=== PATIENT | female | born 1935 | race Caucasian/White ===

== ENCOUNTER 2019-06-01 13:07 | Outpatient (RCR) | payer MEDICARE, OTHER, SELFPAY | END 2019-06-26 00:01 | LOC: WOUND 13:07 | PROVIDERS: Family Provider Internal Medicine; Visit Provider Surgery | DX: Z09 Encounter for follow-up examination after completed treatment for conditions other than malignant neoplasm (principal) | CPT/HCPCS: G0463 ==

== ENCOUNTER → 2019-07-09 09:50 | Outpatient (BNVA) | payer MEDICARE, OTHER, SELFPAY | PROVIDERS: Family Provider Internal Medicine; PCP Internal Medicine; Visit Provider Internal Medicine | DX: D64.9 Anemia, unspecified (principal) | CPT/HCPCS: 85025 ==

== ENCOUNTER 2019-07-10 06:25 | Outpatient (CLI) | payer MEDICARE, OTHER, SELFPAY ==
[2019-07-10] VITALS (12 sets, daily range): BP systolic 126–155; BP diastolic 51–75; PULSE 56–63; RESP 18; TEMP 36.1–36.7; O2SAT 97; BMI 32.4
== END 2019-07-10 06:26 | disposition home or self-care (01) ==
PROVIDERS: Family Provider Internal Medicine; PCP Internal Medicine; Visit Provider Internal Medicine
DX: D64.9 Anemia, unspecified (principal); K92.1 Melena
CPT/HCPCS: 36415; 36430; 86850; 86900; P9016

== ENCOUNTER 2019-07-22 12:13 | Emergency (ER) | payer MEDICARE, OTHER, SELFPAY ==
[2019-07-22 12:15] VITALS: BMI 31.6
--- NOTE | 2019-07-22 12:15 | ED_ITS ---
Entered by Vladimir Jenkins, acting as scribe for Karoline Bernard HPI - Weakness General: Chief complaint: Weakness Stated complaint: WEAKNESS Time Seen by Provider: 07/22/19 12:14 History of Present Illness: HPI Narrative: 83 yo female presents with laurie lopez. Pt states that this all started last night. Pt states that she can't stand on her own. Pt states that prior to today she was able to ambulate with a walker. MD Complaint: generalized weakness Onset (ago): day(s) (last night) Duration: constant Location: generalized Severity: moderate Exacerbating factors: none Associated symptoms: Denies chest pain, chills, dark stools, diaphoresis, dysuria, easy bruising, fever(s), nausea, syncope or vomiting Review of Systems General: Reports: other (negative unless marked) Const: Denies: fever, chills, body aches, fatigue, malaise or diaphoresis Eyes: Denies: change in vision or blurry vision ENMT: Denies: throat pain, painful swallowing, hoarseness, ear pain, ear discharge, Change in hearing or nasal discharge Card: Denies: chest pain, palpitations, irregular heart rhythm, syncope, pre- syncope, shortness of breath on exertion or shortness of breath when lying down Resp: Denies: shortness of breath, productive cough, non-productive cough, wheezing, coughing up blood or chest congestion GI: Denies: abdominal pain, nausea, vomiting, vomiting blood, coffee grounds in vomit, diarrhea, constipation, cramping, blood in stool or black tarry stool : Denies: flank pain, painful urination, urinary frequency, urinary urgency, decreased urine ouput, urinary incontinence or blood in urine Musc: Denies: neck pain, back pain, extremity pain, extremity swelling, joint pain, joint swelling, joint warmth or joint stiffness Skin/Breast: Denies: rash, skin tenderness or yellow skin Neuro: Reports: weakness in extremities (lower extremities) and difficulty walking; Denies: numbness in extremities Endo: Denies: excessive thirst, tired all the time, cold intolerance, excessive sweating, flushing or hot flashes Braulio/Lymph: Denies: easy bruising, easy bleeding, petechiae or enlarged lymph nodes All/Imm: Denies: hives, throat swelling, tongue swelling, facial swelling or acute wheezing PFSH ED PFSH: Statuses (acute, chronic, etc) shown below reflect problem list status as previously entered and may not be historically accurate Medical History CAD (coronary artery disease) (Acute) Depression (Acute) Diabetes (Acute) Fibromyalgia (Acute) GERD (gastroesophageal reflux disease) (Acute) Hypertension (Acute) Polymyalgia rheumatica (Acute) Thyroid disease (Acute) Surgical History H/O: hysterectomy (Acute) History of appendectomy (Acute) History of back surgery (Acute) History of bilateral knee replacement (Acute) Hx of cataract surgery (Acute) Social History Smoking and tobacco status: never smoked Physical Exam Const: COMMON NORMALS: no apparent distress, oriented x3, no limitations, healthy appearing and well nourished EXAM LIMITATIONS: no altered mental status GENERAL APPEARANCE: cooperative, well kempt and well developed ORIENTATION/CONSCIOUSNESS: Yes awake HENMT: COMMON NORMALS: normocephalic, head/scalp atraumatic, hearing grossly normal bilaterally, external ears normal, EAC's normal, external nose normal and moist oral mucous membranes HEAD & SCALP: normal to inspection, normocephalic and atraumatic FACE & SINUS: normal facial exam and face symmetric NOSE: external nose normal and nares normal EXTERNAL EAR: Yes external ears normal EXTERNAL AUDITORY CANAL: EAC's normal MOUTH: oral and palatal mucosa normal and tongue normal Eye: COMMON NORMALS: PERRL, EOMs intact bilaterally, conjunctivae normal and no scleral icterus GENERAL EYE: normal appearance of both eyes and normal light reflex CONJUNCTIVA: Yes conjunctivae normal SCLERA: sclerae normal CORNEA: Yes corneas normal PUPIL: Yes PERRL DIRECT OPHTHALMOSCOPY: Yes normal light reflex Neck/C-Spine: COMMON NORMALS: full ROM, no lymphadenopathy, supple, no meningeal signs and no JVD GENERAL: Yes normal visual inspection and Yes trachea midline CERVICAL SPINE: Yes cervical ROM normal Chest: COMMONS NORMALS: inspection of chest normal and palpation of chest normal Resp: COMMON NORMALS: normal respiratory effort, no retractions, no use of accessory muscles and clear to auscultation bilaterally EFFORT & INSPECTION: Yes able to speak in complete sentences AUSCULTATION: clear to auscultation bilaterally Cardio: COMMON NORMALS: no JVD, regular rate, regular rhythm, S1 normal heart sound, S2 normal heart sound, no gallops, no clicks, no murmurs and no rub JUGULAR VENOUS DISTENTION: no JVD RATE: regular rate RHYTHM: regular rhythm HEART SOUNDS: S1 normal and S2 normal GI: COMMON NORMALS: soft to palpation, non-tender, no hepatosplenomegaly and no masses INSPECTION: Yes normal to inspection PALPATION: Yes soft and Yes no hepatosplenomegaly : COMMON NORMALS: Yes no CVA tenderness BLADDER/KIDNEY EXAM: Yes no CVA tenderness Back/Pelvis: COMMON NORMALS: no CVA tenderness, thoracic and lumbar spine normal to inspection, no thoracic nor lumbar tenderness and thoraco-lumbar ROM normal Extremity: COMMON NORMALS: normal to inspection, full ROM, normal capillary refill, no joint enlargement, no clubbing, cyanosis or edema and no calf tenderness Neuro: COMMON NORMALS: oriented x3, CN's II-XII intact bilaterally, no focal motor deficits and no sensory deficits noted; negative for moves all extremities (bilateral legs are weak) MENINGEAL SIGNS: Yes no meningeal signs Psych: COMMON NORMALS: mental status grossly normal, thought process normal, cooperative, affect normal, speech normal and activity/motor behavior normal APPEARANCE: Yes well kempt SPEECH: Yes normal speech THOUGHT PROCESS: normal thought process Skin: COMMON NORMALS: no rashes or lesions noted, skin turgor normal, no jaundice, no petechiae and no mottling GENERAL SKIN EXAM: no rashes or lesions noted and turgor normal MDM - Weakness MDM Narrative: Medical decision making narrative: Patient comes in for clearance to go to residential. I see no sign of acute life-threatening problem. The patient has generalized weakness but no determined cause. I attempted to contact Dr. Calvo as he will be the provider caring for the patient there but he is unavailable. Patient understands she can return here if anything changes or she worsens at all. Otherwise she is ready to go to the residential. The patient has no sign of acute coronary syndrome, infectious etiology or metabolic/electrolyte problem causing her generalized weakness. I think this is just a overall gradual functional decline. Patient denies any focal problems just her normal weakness just worse the past few days. She is agreeable to return should her symptoms worsen but at this time she is ready to go to the residential. Lab Data: Attestation: I reviewed the patient's lab results. Labs: Lab Results 07/22/19 07/22/19 07/22/19 Range/Units 12:32 12:37 12:37 WBC 5.8 (4.0-10.0) 10^3/ uL RBC 4.19 (4.1-5.3) 10^6/u L Hgb 10.0 L (11.5-15.3) g/dL Hct 34.4 L (37.0-47.0) % MCV 82.1 (81-99) fL MCH 23.9 L (28.0-34.0) pg MCHC 29.1 L (30.0-36.0) g/dL RDW 18.6 H (12.1-15.1) % Plt Count 277 (130-400) 10^3/c mm MPV 9.1 (7.4-10.4) fL Neut % (Auto) 77.9 % Lymph % (Auto) 15.3 % [place] % (Auto) 4.8 % Eos % (Auto) 1.5 % Baso % (Auto) 0.3 % Neut # (Auto) 4.5 (1.8-7.7) 10^3/u L Lymph # (Auto) 0.9 (0.8-4.8) 10^3/u L [place] # (Auto) 0.3 (0.2-0.9) 10^3/u L Eos # (Auto) 0.1 (0.0-0.8) 10^3/u L Baso # (Auto) 0.0 (0.0-0.1) 10^3/u L Nucleated RBC % (a uto) 0 % Nucleated RBCs # 0.0 /100WBC PT 13.40 H (10.5-13.3) SECO NDS INR 0.99 (0.8-1.2) Sodium (136-145) mmol/L Potassium (3.5-5.1) mmol/L Chloride (98-107) mmol/L Carbon Dioxide (22-29) mmol/L Anion Gap (5-19) BUN (8-23) mg/dL Creatinine (0.5-0.9) mg/dL Glucose (74-106) mg/dL Lactic Acid (0.5-2.2) mmol/L Calcium (8.5-10.5) mg/dL Magnesium (1.7-2.3) mg/dL Total Bilirubin (0.15-1.2) mg/dL AST (0-32) U/L ALT (0-33) U/L Alkaline Phosphata se (35-105) IU/L Troponin T Baselin e (0-10) ng/mL Troponin T 120 Min [place] (0-10) ng/mL Delta Troponin T (0-10) ABS# Total Protein (6.6-8.7) g/dL Albumin (3.5-5.2) g/dL Globulin (1.3-4.6) g/dL Lipase (13-60) U/L Urine Color (Yellow) Urine Appearance (CLEAR) Urine pH (5-7) Ur Specific Gravit y (1.005-1.030) Urine Protein (Negative) Urine Glucose (UA) (Normal) Urine Ketones (Negative) Urine Occult Blood (Negative) Urine Nitrate (Negative) Urine Bilirubin (NEGATIVE) Urine Urobilinogen (Negative) mg/dL Ur Leukocyte Marine ase (Negative) Urine RBC (0-2) /hpf Urine WBC (0-5) /hpf Ur Squamous Epith Cells (0-5) Urine Bacteria (NONE) Influenza Type A A g Negative (Negative) POC Influenza B Ag Negative (Negative) 07/22/19 07/22/19 07/22/19 Range/Units 12:37 12:37 12:37 WBC (4.0-10.0) 10^3/ uL RBC (4.1-5.3) 10^6/u L Hgb (11.5-15.3) g/dL Hct (37.0-47.0) % MCV (81-99) fL MCH (28.0-34.0) pg MCHC (30.0-36.0) g/dL RDW (12.1-15.1) % Plt Count (130-400) 10^3/c mm MPV (7.4-10.4) fL Neut % (Auto) % Lymph % (Auto) % [place] % (Auto) % Eos % (Auto) % Baso % (Auto) % Neut # (Auto) (1.8-7.7) 10^3/u L Lymph # (Auto) (0.8-4.8) 10^3/u L [place] # (Auto) (0.2-0.9) 10^3/u L Eos # (Auto) (0.0-0.8) 10^3/u L Baso # (Auto) (0.0-0.1) 10^3/u L Nucleated RBC % (a uto) % Nucleated RBCs # /100WBC PT (10.5-13.3) SECO NDS INR (0.8-1.2) Sodium 137 (136-145) mmol/L Potassium 4.4 (3.5-5.1) mmol/L Chloride 98 (98-107) mmol/L Carbon Dioxide 28 (22-29) mmol/L Anion Gap 15.4 (5-19) BUN 16 (8-23) mg/dL Creatinine 1.1 H (0.5-0.9) mg/dL Glucose 203 H (74-106) mg/dL Lactic Acid 1.1 (0.5-2.2) mmol/L Calcium 9.9 (8.5-10.5) mg/dL Magnesium 1.9 (1.7-2.3) mg/dL Total Bilirubin 0.3 (0.15-1.2) mg/dL AST 34 H (0-32) U/L ALT 31 (0-33) U/L Alkaline Phosphata se 115 H (35-105) IU/L Troponin T Baselin e 76 H (0-10) ng/mL Troponin T 120 Min [place] (0-10) ng/mL Delta Troponin T (0-10) ABS# Total Protein 7.4 (6.6-8.7) g/dL Albumin 4.3 (3.5-5.2) g/dL Globulin 3.1 (1.3-4.6) g/dL Lipase 26 (13-60) U/L Urine Color (Yellow) Urine Appearance (CLEAR) Urine pH (5-7) Ur Specific Gravit y (1.005-1.030) Urine Protein (Negative) Urine Glucose (UA) (Normal) Urine Ketones (Negative) Urine Occult Blood (Negative) Urine Nitrate (Negative) Urine Bilirubin (NEGATIVE) Urine Urobilinogen (Negative) mg/dL Ur Leukocyte [place] ase (Negative) Urine RBC (0-2) /hpf Urine WBC (0-5) /hpf Ur Squamous Epith Cells (0-5) Urine Bacteria (NONE) Influenza Type A A g (Negative) POC Influenza B Ag (Negative) 07/22/19 07/22/19 Range/Units 14:28 15:15 WBC (4.0-10.0) 10^3/ uL RBC (4.1-5.3) 10^6/u L Hgb (11.5-15.3) g/dL Hct (37.0-47.0) % MCV (81-99) fL MCH (28.0-34.0) pg MCHC (30.0-36.0) g/dL RDW (12.1-15.1) % Plt Count (130-400) 10^3/c mm MPV (7.4-10.4) fL Neut % (Auto) % Lymph % (Auto) % [place] % (Auto) % Eos % (Auto) % Baso % (Auto) % Neut # (Auto) (1.8-7.7) 10^3/u L Lymph # (Auto) (0.8-4.8) 10^3/u L [place] # (Auto) (0.2-0.9) 10^3/u L Eos # (Auto) (0.0-0.8) 10^3/u L Baso # (Auto) (0.0-0.1) 10^3/u L Nucleated RBC % (a uto) % Nucleated RBCs # /100WBC PT (10.5-13.3) SECO NDS INR (0.8-1.2) Sodium (136-145) mmol/L Potassium (3.5-5.1) mmol/L Chloride (98-107) mmol/L Carbon Dioxide (22-29) mmol/L Anion Gap (5-19) BUN (8-23) mg/dL Creatinine (0.5-0.9) mg/dL Glucose (74-106) mg/dL Lactic Acid (0.5-2.2) mmol/L Calcium (8.5-10.5) mg/dL Magnesium (1.7-2.3) mg/dL Total Bilirubin (0.15-1.2) mg/dL AST (0-32) U/L ALT (0-33) U/L Alkaline Phosphata se (35-105) IU/L Troponin T Baselin e (0-10) ng/mL Troponin T 120 Min [place] 82.18 H (0-10) ng/mL Delta Troponin T 6.18 (0-10) ABS# Total Protein (6.6-8.7) g/dL Albumin (3.5-5.2) g/dL Globulin (1.3-4.6) g/dL Lipase (13-60) U/L Urine Color Straw (Yellow) Urine Appearance Clear (CLEAR) Urine pH 7 (5-7) Ur Specific Gravit y 1.005 (1.005-1.030) Urine Protein Neg (Negative) Urine Glucose (UA) Norm (Normal) Urine Ketones Negative (Negative) Urine Occult Blood Neg (Negative) Urine Nitrate Negative (Negative) Urine Bilirubin Neg (NEGATIVE) Urine Urobilinogen Norm (Negative) mg/dL Ur Leukocyte [place] ase Negative (Negative) Urine RBC None (0-2) /hpf Urine WBC None (0-5) /hpf Ur Squamous Epith Cells Rare (0-5) Urine Bacteria None (NONE) Influenza Type A A g (Negative) POC Influenza B Ag (Negative) EKG Data^: EKG 1: Attestation: I personally reviewed and interpreted this EKG as follows: EKG interpretation date: 07/22/19 EKG interpretation time: 14:33 Interpretation: Normal sinus rhythm at 70 beats minute, normal axis, no acute ST or T wave changes. Discharge Plan Discharge Prescriptions: No Action atorvastatin [Lipitor] 20 mg Tablet 20 mg PO DAILY RF: 0 lisinopril 20 mg Tablet 20 mg PO DAILY RF: 0 glimepiride 4 mg Tablet 4 mg PO BID RF: 0 gabapentin 300 mg Capsule 300 mg PO TID RF: 0 fiber Powder 3.4 g PO DAILY RF: 0 Levemir FlexTouch U-100 Insuln 100 unit/mL (3 mL) Insulin Pen 30 unit SUBCUT BID RF: 0 rivastigmine tartrate 1.5 mg Capsule 1.5 mg PO BID RF: 0 allopurinol 100 mg Tablet 100 mg PO DAILY RF: 0 carvedilol 3.125 mg Tablet 3.125 mg PO BID RF: 0 Synthroid 125 mcg Tablet 125 mcg PO DAILY RF: 0 Lyrica 25 mg Capsule 25 mg PO BID RF: 0 Coding Level of Care Code ED Deburr Technician for Chg Fwd Exam Problem Focused The documentation recorded by the Gregory pollack Kialy, accurately reflects the service I personally performed and the decisions made by Marco Antonio todd Eli N Jul 22, 2019 12:13
--- NOTE | 2019-07-22 12:19 | XRR_ITS ---
PROCEDURE INFORMATION: Exam: XR Chest, 1 View Exam date and time: 07/22/2019 12:48 PM Age: 83 years old Clinical indication: Cough; Patient HX: PT states weakness started yesterday, worsening today. PT denies HX of surgery on chest, PT denies CA, PT denies smoking HX. TECHNIQUE: Imaging protocol: XR of the chest Views: 1 view. COMPARISON: CR Chest 1 [place] [id number] 06/09/2019 11:54 AM FINDINGS: Lungs: No consolidation. Chronic appearing interstitial changes. Pleural space: No pleural effusion. No pneumothorax. Heart/Mediastinum: No cardiomegaly. Bones/joints: No acute fracture. Partially imaged hardware in the lower cervical spine. XR/XR chest 1V portable [id number] IMPRESSION: No acute findings.
[2019-07-22 12:45] LABS: Basophils % 0.3 %; Eosinophils # 0.1 10^3/uL (0.0-0.8); Eosinophils % 1.5 %; Hematocrit 34.4 % (37.0-47.0); Lymphocytes # 0.9 10^3/uL (0.8-4.8); Lymphocytes % 15.3 %; Mean Corpuscular HGB Conc 29.1 g/dL (30.0-36.0); Mean Corpuscular Hemoglobin 23.9 pg (28.0-34.0); Mean Corpuscular Volume 82.1 fL (81-99); Mean Platelet Volume 9.1 fL (7.4-10.4); Monocytes # 0.3 10^3/uL (0.2-0.9); Monocytes % 4.8 %; Neutrophils # 4.5 10^3/uL (1.8-7.7); Neutrophils % 77.9 %; Nucleated Red Blood Cells % 0 %; Platelet Count 277 10^3/cmm (130-400); Red Blood Count 4.19 10^6/uL (4.1-5.3); Red Cell Distribution Width 18.6 % (12.1-15.1); White Blood Count 5.8 10^3/uL (4.0-10.0)
[2019-07-22 12:55] LABS: INR 0.99 (0.8-1.2)
[2019-07-22 13:03] LABS: Alanine Aminotransferase 31 U/L (0-33); Albumin Level 4.3 g/dL (3.5-5.2); Alkaline Phosphatase 115 IU/L (35-105); Anion Gap 15.4 (5-19); Aspartate Amino Transferase 34 U/L (0-32); Blood Urea Nitrogen 16 mg/dL (8-23); Calcium 9.9 mg/dL (8.5-10.5); Carbon Dioxide 28 mmol/L (22-29); Chloride 98 mmol/L (98-107); Globulin 3.1 g/dL (1.3-4.6); Glucose 203 mg/dL (74-106); Lipase 26 U/L (13-60); Magnesium 1.9 mg/dL (1.7-2.3); Potassium 4.4 mmol/L (3.5-5.1); Sodium 137 mmol/L (136-145); Total Bilirubin 0.3 mg/dL (0.15-1.2); Total Protein 7.4 g/dL (6.6-8.7)
[2019-07-22 13:04] LABS: Lactic Sepsis W/Reflex 1.1 mmol/L (0.5-2.2)
[2019-07-22 13:05] LABS: Troponin(5th) Baseline 76 ng/mL (0-10)
[2019-07-22 13:17] LABS: Influenza A by IFA Negative (Negative); Influenza B by IFA Negative (Negative)
--- NOTE | 2019-07-22 14:20 | ECG_ITS ---
Measurements Intervals [place] Rate: 70 P: 85 MA: 221 QRS: -14 QRSD: 104 T: 34 QT: 426 QTc: 462 SINUS RHYTHM WITH FIRST DEGREE AV BLOCK Compared to ECG 06/09/2019 13:09:28 Sinus bradycardia no longer present Electronically Signed On 07-22-2019 18:56:03 LEGAL PROCESS SPECIALIST by Eric Ramsay M.D. [id number]
[2019-07-22 14:48] LABS: Troponin 5 2HR 82.18 ng/mL (0-10); Troponin 5 2HR Delta 6.18 ABS# (0-10)
[2019-07-22 15:53] LABS: Bilirubin Urine Neg (NEGATIVE); Blood Urine Neg (Negative); Glucose Urine UA Norm (Normal); Ketones Urine Negative (Negative); Leukocyte Esterase Urine Negative (Negative); Nitrate Urine Negative (Negative); Protein Urine Neg (Negative); Specific Gravity, Urine 1.005 (1.005-1.030); Urine Appearance Clear (CLEAR); Urine Color Straw (Yellow); Urobilinogen Urine Norm (Negative); pH Urine 7 (5-7)
[2019-07-22 15:55] LABS: Add Urine Culture? No; Squamous Epithelial Cell Urine RARE (0-5)
--- NOTE | 2019-07-22 16:28 | PC.NURSE ---
See skin assessment performed by Reinaldo ZAPIEN
[2019-07-22 17:40] VITALS: BP 140/80; PULSE 75; RESP 15; O2SAT 98
== END 2019-07-22 17:40 | disposition skilled nursing facility (03) ==
PROVIDERS: Emergency Provider Emergency Medicine; Family Provider Internal Medicine; PCP Internal Medicine
DX: R53.1 Weakness (principal); Z79.4 Long term (current) use of insulin; I25.10 Atherosclerotic heart disease of native coronary artery without angina pectoris; E11.9 Type 2 diabetes mellitus without complications; K21.9 Gastro-esophageal reflux disease without esophagitis; I10 Essential (primary) hypertension; E07.9 Disorder of thyroid, unspecified
CPT/HCPCS: 36415; 71045; 80053; 81001; 83605; 83690; 83735; 84484; 85025; 85610; 87804; 93005; 99281

== ENCOUNTER → 2020-01-16 15:38 | Outpatient (BNVA) | payer MEDICARE, OTHER, SELFPAY | PROVIDERS: Family Provider Internal Medicine; PCP Internal Medicine; Visit Provider Specialist | DX: G31.83 Neurocognitive disorder with Lewy bodies (principal); F02.80 Dementia in other diseases classified elsewhere, unspecified severity, without behavioral disturbance, psychotic disturbance, mood disturbance, and anxiety | CPT/HCPCS: 99213 ==

== ENCOUNTER 2020-04-29 11:59 | Day surgery (SDC) | payer MEDICARE, OTHER, SELFPAY ==
[2020-04-29] VITALS (12 sets, daily range): BP systolic 121–147; BP diastolic 63–78; PULSE 97–104; RESP 16–20; TEMP 36.6–37.1; O2SAT 95–98
--- NOTE | 2020-04-29 14:18 | PC.NURSE ---
signed blood consent signed and placed in file.
--- NOTE | 2020-04-29 14:46 | PC.NURSE ---
started administration of first unit of blood.
[2020-04-29 18:52] LABS: Iron 70 ug/dL (37-145); Percent Saturation 28.5 % (20-50); Total Iron Binding Capacity 245 mcg/dl; Unsaturated Iron Binding 175 ug/dL (112-347)
[2020-04-29 19:08] LABS: Vitamin B12 450 pg/mL (232-1245)
[2020-04-29] MEDS: sodium chloride 0.9% (100 ml) 100 ML 75 ML (19:46)
[2020-04-30 04:00] VITALS: BP 167/73; PULSE 92; RESP 20; TEMP 37; O2SAT 95
[2020-04-30 07:20] VITALS: BP 162/82; PULSE 93; RESP 18; TEMP 37.1; O2SAT 95
--- NOTE | 2020-04-30 07:31 | PC.NURSE ---
IV discontinued and 2x2 [address]. patient taken to [facility] via wheelchair by transport.
--- NOTE | 2020-04-30 10:33 | PC.CHAP ---
Pastoral Care Encounter/Spiritual Assessment Type of Contact [] Declined meat hostess visit [] Patient/Family/Request visit [] Outpatient visit [] Follow-up visit [] Physician referral [] Code/Alert [X] Routine visit [] Staff referral [] Actively dying [] Patient sleeping [] Family support [] [] Out of room [] Palliative care [] [] Receiving care in room [] Pre-surgical visit [] Trauma [] Long length of stay [] ICU visit [] Other: Relational/Emotional Strength [] Patient feels connected with others/family/visitors/staff [] Distress [] Loneliness/isolation [] Abandonment Spirituality of Patient [] Person of Serena [] Attends Rastafari of their Serena [] Believes in Prayer [] Reads Bible or Christianity materials [] There are Spiritual issues to be addressed Vp Clinical Interventions [] Prayer [] Active listening [] Non-anxious presence [] Spiritual/emotional support [] Crisis/trauma care [] Spiritual counseling [] Bereavement support [] Provided bereavement packet [] Provided Bible/devotional materials [] Provided toy/stuffed animal, coloring book to patient or family member [] Provided Communion [] Anointing/[place] [] Salvation [] Completed spiritual assessment [] Other: Impact on Illness or Injury [] Angry [] Fearful [] Anxious [] Often cries [] Exhaustion [] Unable to work [] Unable to attend temple [] Unable to walk/stand [] Unable to read [] Unable to drive [] Unable to eat/drink [] Unable to sleep [] Unable to be with family [] Patient intubated [] Other: Summary Time spent with patient
== END 2020-04-30 07:31 | disposition home or self-care (01) ==
LOC: OPS 12:12 → MEDSURG 12:13
PROVIDERS: PCP Internal Medicine; Visit Provider Internal Medicine
DX: I48.91 Unspecified atrial fibrillation (principal); I25.10 Atherosclerotic heart disease of native coronary artery without angina pectoris; E03.9 Hypothyroidism, unspecified; E11.22 Type 2 diabetes mellitus with diabetic chronic kidney disease; I12.9 Hypertensive chronic kidney disease with stage 1 through stage 4 chronic kidney disease, or unspecified chronic kidney disease; N18.9 Chronic kidney disease, unspecified
CPT/HCPCS: 36415; 36430; 82607; 82746; 83540; 83550; 85045; 86850; 86900; 86920; P9016

== ENCOUNTER 2020-06-27 11:48 | Inpatient (IN) | payer MEDICARE, OTHER, SELFPAY ==
[2020-06-27] VITALS (31 sets, daily range): BP systolic 98–145; BP diastolic 55–74; PULSE 95–110; RESP 18–102; TEMP 36.5–37.1; O2SAT 95–98; BMI 36.9
--- NOTE | 2020-06-27 11:59 | XR_ITS ---
WS: [id number] Exam: XR chest 1V portable [id number] Date/Time of Exam: 06/27/2020 12:13 PM Reason For Exam: sob Comparison 07/22/2019. The lungs are clear and fully expanded. Normal cardiomediastinal structures. No pleural effusions. Re gional bony elements are intact. Operative fusion of the lower C-spine. Monitoring leads superimpose the chest. XR/XR chest 1V portable [id number] IMPRESSION: 1. No acute cardiopulmonary finding. No change.
--- NOTE | 2020-06-27 11:59 | ECG_ITS ---
[facility] Test Date: 2020-06-27 Pat Name: Emily Murillo Department: Room: Gender: Female Other Sales Support Worker: : 1935 Requested By: Solange Roman Order Number: [id number] Jenifer MD: Santhosh Camp M.D. Measurements Intervals [place] Rate: 102 P: 95 WI: 223 QRS: -7 QRSD: 96 T: 39 QT: 359 QTc: 469 Interpretive Statements SINUS TACHYCARDIA WITH FIRST DEGREE AV BLOCK MODERATE ST DEPRESSION [0.05+ mV ST DEPRESSION] Compared to ECG 07/22/2019 14:33:38 ST (T wave) deviation now present Sinus rhythm no longer present Electronically Signed On 06-27-2020 18:23:40 REPAIR SERVICER by Santhosh Camp M.D. [id number]
--- NOTE | 2020-06-27 11:59 | CT_ITS ---
WS: [id number] Exam: CT head wo con* [id number] Date/Time of Exam: 06/27/2020 12:02 PM Reason For Exam: altered DLP: 787.[address] scans at [facility] use at least one of these dose optimization techniques: automat ed exposure control; mA and/or kV adjustment per patient size (includes targeted exams where dose is matched to clinical indication); or iterative reconstruction. Comparison 12/07/2018. No sign of acute intracranial bleed or space-occupying mass. Diffuse atrophy and volume loss. Microva scular ischemic change in the deep white matter substance. No extra-axial fluid collections. The skul l is intact. Trace amount of fluid in the left mastoids. Minimal mucosal thickening in the left sphen oid sinus. Moderate calcified atherosclerotic plaquing of the intracranial internal carotid arteries. CT/CT head wo con* [id number] IMPRESSION: 1. No acute intracranial process. 2. Moderate atrophic change with volume loss and microvascular ischemic change.
[2020-06-27 12:02] LABS: Glucose Point of Care 388 mg/dL (70-110)
[2020-06-27 12:33] LABS: Basophils % 0.3 %; Eosinophils % 0.2 %; Hematocrit 21.4 % (37.0-47.0); Lymphocytes # 0.5 10^3/uL (0.8-4.8); Lymphocytes % 3.9 %; Mean Corpuscular HGB Conc 25.7 g/dL (30.0-36.0); Mean Corpuscular Hemoglobin 21.1 pg (28.0-34.0); Monocytes # 0.3 10^3/uL (0.2-0.9); Monocytes % 2.3 %; Neutrophils # 10.96 10^3/uL (1.8-7.7); Nucleated Red Blood Cells # 0.3 /100WBC; Nucleated Red Blood Cells % 2.9 %; Platelet Count 412 10^3/cmm (130-400); Red Blood Count 2.61 10^6/uL (4.1-5.3); Red Cell Distribution Width 21.4 % (12.1-15.1); White Blood Count 11.9 10^3/uL (4.0-10.0)
[2020-06-27 12:43] LABS: Hemoglobin 5.5 g/dL (11.5-15.3)
[2020-06-27 13:01] LABS: Alanine Aminotransferase 13 U/L (0-33); Albumin Level 3.4 g/dL (3.5-5.2); Alkaline Phosphatase 91 IU/L (35-105); Anion Gap 16.6 (5-19); Aspartate Amino Transferase 23 U/L (0-32); Blood Urea Nitrogen 32 mg/dL (8-23); Calcium 7.7 mg/dL (8.5-10.5); Carbon Dioxide 26 mmol/L (22-29); Chloride 96 mmol/L (98-107); Globulin 2.5 g/dL (1.3-4.6); Glucose 354 mg/dL (65-115); NT Pro B Type Natriuretic Pept 698 pg/mL (0-450); Osmolality Calculated 299 mOsm/kg (285-295); Potassium 4.6 mmol/L (3.5-5.1); Sodium 134 mmol/L (136-145); Total Bilirubin 0.2 mg/dL (0.15-1.2); Total Protein 5.9 g/dL (6.6-8.7)
--- NOTE | 2020-06-27 13:10 | ED_ITS ---
HPI - Weakness General: Chief complaint: Weakness Stated complaint: increased lethargy/ hyperglycemia Time Seen by Provider: 06/27/20 11:51 Source: EMS, RN notes reviewed and old records reviewed History of Present Illness: HPI Narrative: 84-year-old female presents by EMS chief complaint of generalized weakness fatigue. This patient was signed out to myself by the midlevel provider for further evaluation management. The patient did admit to having some blood in her stools been ongoing for approximately 1 month she reports to generalized weakness and fatigue she reports no other associated Covid type symptoms. Patient did not report any recent falls or injuries MD Complaint: generalized weakness and lack of energy Onset (ago): week(s) Review of Systems General: Reports: 10 or more systems reviewed and unremarkable except in HPI and below Const: Reports: fatigue GI: Reports: hematochezia Neuro: Reports: other (Weakness) PFSH ED PFSH: Medical History Atherosclerosis of coronary artery of [place] heart CAD (coronary artery disease) Chronic episodic atrial fibrillation Depression Diabetes Fibromyalgia GERD (gastroesophageal reflux disease) Hypertension Hypocholesteremia Polymyalgia rheumatica Thyroid disease Surgical History H/O: hysterectomy History of appendectomy History of back surgery History of bilateral knee replacement Hx of cataract surgery Social History Smoking and tobacco status: never smoked History of recent travel: No Physical Exam Const: COMMON NORMALS: no acute distress, patient oriented x3 and healthy appearing HENMT: COMMON NORMALS: normocephalic and atraumatic HEAD & SCALP: normocephalic and atraumatic Eye: COMMON NORMALS: Equal, round and reactive pupils present and EOMs intact bilaterally PUPIL: Yes Equal, round and reactive pupils present Neck/C-Spine: COMMON NORMALS: full ROM, supple and no JVD Lymph: LYMPHATIC: no lymphadenopathy noted Chest: COMMONS NORMALS: normal inspection of the chest and normal palpation of entire chest wall Resp: COMMON NORMALS: normal respiratory effort, No retractions and clear to auscultation bilaterally EFFORT & INSPECTION: Yes able to speak in complete sentences and Yes symmetric chest movement AUSCULTATION: clear to auscultation bilaterally Cardio: COMMON NORMALS: no JVD, regular rate and regular rhythm RATE: regular rate RHYTHM: regular rhythm GI: COMMON NORMALS: Normal to inspection, nondistended, normoactive bowel sounds present, Soft to palpation and non-tender INSPECTION: Yes normal to inspection PALPATION: Yes Soft to palpation : COMMON NORMALS: Yes no CVA tenderness BLADDER/KIDNEY EXAM: Yes no CVA tenderness Back/Pelvis: COMMON NORMALS: no CVA tenderness Extremity: COMMON NORMALS: normal to inspection and full ROM Neuro: COMMON NORMALS: patient oriented x3, CN's II-XII intact bilaterally, moves all extremities and no focal motor deficits Psych: COMMON NORMALS: mental status grossly normal, Normal thought process present, cooperative and normal affect THOUGHT PROCESS: Normal thought process present Skin: COMMON NORMALS: no rashes or lesions noted GENERAL SKIN EXAM: no rashes or lesions noted Course Vital Signs: Vital signs: Vital Signs Temperature 98.5 F 06/27/20 17:07 Pulse Rate 102 H 06/27/20 17:07 Respiratory Rate 21 H 06/27/20 17:07 Blood Pressure 127/57 06/27/20 17:07 Pulse Oximetry 97 06/27/20 17:07 MDM - Weakness MDM Narrative: Medical decision making narrative: Blood products were initiated by the provider I spoke with Dr. Paulino about admitting the patient to the medical telemetry floor which is granted acceptance Dr. Brady was also placed on for consultation. Lab Data: Labs: Lab Results 06/27/20 06/27/20 06/27/20 Range/Units 11:59 12:13 12:13 WBC 11.9 H (4.0-10.0) 10^3/ uL RBC 2.61 L (4.1-5.3) 10^6/u L Hgb 5.5 L* (11.5-15.3) g/dL Hct 21.4 L (37.0-47.0) % MCV 82.0 (81-99) fL MCH 21.1 L (28.0-34.0) pg MCHC 25.7 L (30.0-36.0) g/dL RDW 21.4 H (12.1-15.1) % Plt Count 412 H (130-400) 10^3/c mm MPV 10.0 (7.4-10.4) fL Neut % (Auto) 92.0 % Lymph % (Auto) 3.9 % [place] % (Auto) 2.3 % Eos % (Auto) 0.2 % Baso % (Auto) 0.3 % Neut # (Auto) 10.96 H (1.8-7.7) 10^3/u L Lymph # (Auto) 0.5 L (0.8-4.8) 10^3/u L [place] # (Auto) 0.3 (0.2-0.9) 10^3/u L Eos # (Auto) 0.0 (0.0-0.8) 10^3/u L Baso # (Auto) 0.0 (0.0-0.1) 10^3/u L Nucleated RBC % (a uto) 2.9 % Nucleated RBCs # 0.3 /100WBC Sodium 134 L (136-145) mmol/L Potassium 4.6 (3.5-5.1) mmol/L Chloride 96 L (98-107) mmol/L Carbon Dioxide 26 (22-29) mmol/L Anion Gap 16.6 (5-19) BUN 32 H (8-23) mg/dL Creatinine 1.4 H (0.5-0.9) mg/dL GFR Calculation Not Reportable Glucose 354 H (65-115) mg/dL POC Glucose 388 H (70-110) mg/dL Calculated Osmolal ity 299 H (285-295) mOsm/k g Calcium 7.7 L (8.5-10.5) mg/dL Total Bilirubin 0.2 (0.15-1.2) mg/dL AST 23 (0-32) U/L ALT 13 (0-33) U/L Alkaline Phosphata se 91 (35-105) IU/L NT-Pro-B Natriuret Pep 698 H (0-450) pg/mL Total Protein 5.9 L (6.6-8.7) g/dL Albumin 3.4 L (3.5-5.2) g/dL Globulin 2.5 (1.3-4.6) g/dL Blood Type Rho(D) Type Antibody Screen Crossmatch 06/27/20 Range/Units 12:53 WBC (4.0-10.0) 10^3/ uL RBC (4.1-5.3) 10^6/u L Hgb (11.5-15.3) g/dL Hct (37.0-47.0) % MCV (81-99) fL MCH (28.0-34.0) pg MCHC (30.0-36.0) g/dL RDW (12.1-15.1) % Plt Count (130-400) 10^3/c mm MPV (7.4-10.4) fL Neut % (Auto) % Lymph % (Auto) % [place] % (Auto) % Eos % (Auto) % Baso % (Auto) % Neut # (Auto) (1.8-7.7) 10^3/u L Lymph # (Auto) (0.8-4.8) 10^3/u L [place] # (Auto) (0.2-0.9) 10^3/u L Eos # (Auto) (0.0-0.8) 10^3/u L Baso # (Auto) (0.0-0.1) 10^3/u L Nucleated RBC % (a uto) % Nucleated RBCs # /100WBC Sodium (136-145) mmol/L Potassium (3.5-5.1) mmol/L Chloride (98-107) mmol/L Carbon Dioxide (22-29) mmol/L Anion Gap (5-19) BUN (8-23) mg/dL Creatinine (0.5-0.9) mg/dL GFR Calculation Glucose (65-115) mg/dL POC Glucose (70-110) mg/dL Calculated Osmolal ity (285-295) mOsm/k g Calcium (8.5-10.5) mg/dL Total Bilirubin (0.15-1.2) mg/dL AST (0-32) U/L ALT (0-33) U/L Alkaline Phosphata se (35-105) IU/L NT-Pro-B Natriuret Pep (0-450) pg/mL Total Protein (6.6-8.7) g/dL Albumin (3.5-5.2) g/dL Globulin (1.3-4.6) g/dL Blood Type O Positive Rho(D) Type Positive Antibody Screen Negative Crossmatch See Detail Discharge Plan Discharge Patient Disposition: Admitted As Inpatient Admit Provider: Carl Paulino Clinical Impression: Symptomatic anemia GI bleed Qualifiers: GI bleed type/associated pathology: unspecified gastrointestinal hemorrhage type Qualified Code(s): K92.2 - Gastrointestinal hemorrhage, unspecified Condition: Stable Coding Level of Care Code ED Electrical Machine Builder for Chg Fwd Exam Comprehensive
--- NOTE | 2020-06-27 13:19 | W.ED.WEAKNES ---
Documented by User: Solange Roman 06/27/20 14:01 HPI - Weakness General: Chief complaint: Weakness Stated complaint: increased lethargy/ hyperglycemia Time Seen by Provider: 06/27/20 11:51 Source: patient and EMS Mode of arrival: EMS Limitations: no limitations History of Present Illness: HPI Narrative: 84-year-old female patient presents to the emergency department via EMS from senior care. Per senior care staff patient has been very lethargic and weak acting. senior living staff states they checked her blood sugar and it was noted to be over 500. Patient is a type II diabetic patient has history of dementia atrial fibrillation hypertension Onset (ago): day(s) (3) Duration: progressively worsening Associated symptoms: Reports nausea; Denies chest pain, chills, dysuria, easy bruising, fever(s), headache(s), syncope or vomiting Review of Systems General: Reports: 10 or more systems reviewed and unremarkable except in HPI and below Const: Reports: fatigue; Denies: fever(s), chills or body aches Eyes: Denies: change in vision or blurry vision ENMT: Denies: throat pain, uvular edema, enlarged tonsils, odynophagia, hoarseness, mouth pain, dental pain or tinnitus Card: Reports: swelling of feet/ankles, lightheadedness and pre-syncope; Denies: chest pain, palpitations, irregular heart rhythm, edema, syncope, dyspnea on exertion or orthopnea Resp: Denies: dyspnea, productive cough, non-productive cough, wheezing, stridor, pain on inspiration or change in phlegm color GI: Reports: nausea, rectal pain and hematochezia; Denies: abdominal pain, vomiting, hematemesis, coffee ground emesis, dysphagia, heartburn, early satiety, diarrhea or constipation : Denies: flank pain, difficulty voiding, dysuria or urinary frequency Musc: Denies: neck pain, back pain or extremity pain Skin/Breast: Denies: rash, pruritus or erythema Neuro: Reports: dizziness; Denies: headache(s), numbness in extremities, weakness in extremities, sensory changes or lack of coordination Psych: Denies: anxiety, depression, suicidal ideation or homicidal ideation Endo: Denies: polyuria, polydipsia, tired all the time, cold intolerance, excessive sweating, flushing, hot flashes or heat intolerance [place]/Lymph: Denies: easy bruising, easy bleeding, petechiae, purpura, enlarged lymph nodes or tender lymph nodes All/Imm: Denies: urticaria, throat swelling, tongue swelling, facial swelling, acute wheezing or itchy eyes PFSH ED PFSH: Medical History (Updated 06/27/20 @ 16:12 by Carl Paulino MD) Atherosclerosis of coronary artery of [place] heart CAD (coronary artery disease) Chronic episodic atrial fibrillation Depression Diabetes Fibromyalgia GERD (gastroesophageal reflux disease) Hypertension Hypocholesteremia Polymyalgia rheumatica Thyroid disease Surgical History H/O: hysterectomy History of appendectomy History of back surgery History of bilateral knee replacement Hx of cataract surgery Social History Smoking and tobacco status: never smoked History of recent travel: No Physical Exam Const: COMMON NORMALS: no acute distress, patient oriented x3, healthy appearing and alert GENERAL APPEARANCE: cooperative and comfortable; not ill appearing ORIENTATION/CONSCIOUSNESS: Yes awake, Yes oriented to person, Yes oriented to place and Yes oriented to time HENMT: COMMON NORMALS: normocephalic, atraumatic, hearing grossly normal bilaterally, external ears normal, EAC's normal, TM's normal bilaterally, Normal external nose present, Normal nasal mucous membranes and turbinates present and moist oral mucous membranes HEAD & SCALP: normal to inspection, normocephalic and atraumatic FACE & SINUS: normal facial exam, sinuses nontender and face symmetric NOSE: Normal external nose present, Normal nares present, Normal nasal mucous membranes and turbinates present, No nasal discharge present and Abnormal external nose present EXTERNAL EAR: Yes external ears normal and Yes mastoids normal EXTERNAL AUDITORY CANAL: EAC's normal TYMPANIC MEMBRANE: TM's normal bilaterally MOUTH: Normal oral and palatal mucosa present, lip normal, tongue normal and Normal salivary glands and ducts present THROAT: no uvular edema Eye: COMMON NORMALS: Equal, round and reactive pupils present, EOMs intact bilaterally, no scleral icterus and no papilledema GENERAL EYE: appearance normal, both eyes and all related structures EYELID: eyelids normal CONJUNCTIVA: Yes other (pale) SCLERA: sclerae normal CORNEA: Yes corneas normal PUPIL: Yes Equal, round and reactive pupils present DIRECT OPHTHALMOSCOPY: Yes no papilledema Neck/C-Spine: COMMON NORMALS: full ROM, no lymphadenopathy, supple, no meningeal signs, no JVD and Thyroid normal GENERAL: Yes normal visual inspection and Yes trachea midline THYROID: Thyroid normal CERVICAL SPINE: Yes cervical ROM normal Lymph: LYMPHATIC: no lymphadenopathy noted and no lymphedema noted Chest: COMMONS NORMALS: normal inspection of the chest and normal palpation of entire chest wall Resp: COMMON NORMALS: normal respiratory effort, No retractions, No use of accessory muscles and clear to auscultation bilaterally EFFORT & INSPECTION: Yes able to speak in complete sentences and Yes symmetric chest movement AUSCULTATION: clear to auscultation bilaterally Cardio: COMMON NORMALS: no JVD, regular rate and regular rhythm RATE: regular rate RHYTHM: regular rhythm GI: COMMON NORMALS: Normal to inspection, nondistended, normoactive bowel sounds present, Soft to palpation, non-tender, No hepatosplenomegaly present, no masses and no bruits INSPECTION: Yes normal to inspection AUSCULTATION: Yes normoactive bowel sounds PALPATION: Yes Soft to palpation and Yes No hepatosplenomegaly present PERCUSSION: normal to percussion RECTAL EXAM: deferred, heme positive stool and other (Patient noted to have a open wound above left buttocks) : COMMON NORMALS: Yes no CVA tenderness, Yes normal external appearance, Yes normal appearance of the vagina, Yes normal appearance of the cervix, Yes normal bimanual exam, Yes No adnexal tenderness and Yes no masses BLADDER/KIDNEY EXAM: Yes no CVA tenderness BIMANUAL EXAM - VAGINA & UTERUS: Yes normal bimanual exam Back/Pelvis: COMMON NORMALS: no CVA tenderness, thoracic and lumbar spine normal to inspection, no thoracic nor lumbar tenderness, thoraco-lumbar ROM normal and straight leg raise negative bilaterally THORACIC SPINE/UPPER BACK: Yes normal to inspection LUMBAR SPINE/LOWER BACK: Yes normal to inspection Extremity: COMMON NORMALS: normal to inspection, full ROM and capillary refill normal GENERAL: Yes normal exam except as noted Neuro: COMMON NORMALS: patient oriented x3, CN's II-XII intact bilaterally, moves all extremities, no focal motor deficits, no sensory deficits noted, deep tendon reflexes 2+ bilaterally and gait normal SENSORIUM/ORIENTATION: Yes alert, Yes oriented to person, Yes oriented to place and Yes oriented to time MENINGEAL SIGNS: Yes no meningeal signs CRANIAL NERVES: Yes CN normal except as noted SPEECH: speech normal SENSORY EXAM: Yes extremities MOTOR EXAM: 5/5 motor strength present throughout Psych: COMMON NORMALS: mental status grossly normal, Normal thought process present, cooperative, normal affect, speech normal, activity/motor behavior normal, denies hallucinations, denies homicidal ideation and denies suicidal ideation APPEARANCE: Yes grossly normal ATTITUDE: Yes calm ACTIVITY/MOTOR BEHAVIOR: Yes appropriate eye contact SPEECH: Yes normal speech THOUGHT PROCESS: Normal thought process present THOUGHT CONTENT: Yes Normal thought content present ATTENTION/CONCENTRATION: Yes attention grossly intact MEMORY/COGNITION: Yes memory grossly intact INSIGHT: Good insight present (Psych) JUDGEMENT: Good judgement present (Psych) Skin: COMMON NORMALS: no rashes or lesions noted, turgor normal, no jaundice, no petechiae and no mottling GENERAL SKIN EXAM: no rashes or lesions noted and turgor normal Course Vital Signs: Vital signs: Vital Signs Temperature 98.4 F 06/27/20 15:38 Pulse Rate 103 H 06/27/20 15:38 Respiratory Rate 21 H 06/27/20 15:38 Blood Pressure 128/66 06/27/20 15:38 Pulse Oximetry 97 06/27/20 15:38 MDM - Weakness MDM Narrative: Medical decision making narrative: Patient is ill-appearing nontoxic patient has pale conjunctive a patient states that she has been bleeding from her rectum for the past month. Patient has a hemoglobin of 5.5 and is symptomatic with this with dizziness lightheadedness shortness of breath. Patient will be typed and crossed and will transfuse 2 units of packed red blood cells is my plan at this time. At this time I will plan on admission to the hospitalist care will be transitioned over to ER physician Dr. Gerald Milligan at this time Lab Data: Labs: Lab Results 06/27/20 06/27/20 06/27/20 Range/Units 11:59 12:13 12:13 WBC 11.9 H (4.0-10.0) 10^3/ uL RBC 2.61 L (4.1-5.3) 10^6/u L Hgb 5.5 L* (11.5-15.3) g/dL Hct 21.4 L (37.0-47.0) % MCV 82.0 (81-99) fL MCH 21.1 L (28.0-34.0) pg MCHC 25.7 L (30.0-36.0) g/dL RDW 21.4 H (12.1-15.1) % Plt Count 412 H (130-400) 10^3/c mm MPV 10.0 (7.4-10.4) fL Neut % (Auto) 92.0 % Lymph % (Auto) 3.9 % [place] % (Auto) 2.3 % Eos % (Auto) 0.2 % Baso % (Auto) 0.3 % Neut # (Auto) 10.96 H (1.8-7.7) 10^3/u L Lymph # (Auto) 0.5 L (0.8-4.8) 10^3/u L [place] # (Auto) 0.3 (0.2-0.9) 10^3/u L Eos # (Auto) 0.0 (0.0-0.8) 10^3/u L Baso # (Auto) 0.0 (0.0-0.1) 10^3/u L Nucleated RBC % (a uto) 2.9 % Nucleated RBCs # 0.3 /100WBC Sodium 134 L (136-145) mmol/L Potassium 4.6 (3.5-5.1) mmol/L Chloride 96 L (98-107) mmol/L Carbon Dioxide 26 (22-29) mmol/L Anion Gap 16.6 (5-19) BUN 32 H (8-23) mg/dL Creatinine 1.4 H (0.5-0.9) mg/dL GFR Calculation Not Reportable Glucose 354 H (65-115) mg/dL POC Glucose 388 H (70-110) mg/dL Calculated Osmolal ity 299 H (285-295) mOsm/k g Calcium 7.7 L (8.5-10.5) mg/dL Total Bilirubin 0.2 (0.15-1.2) mg/dL AST 23 (0-32) U/L ALT 13 (0-33) U/L Alkaline Phosphata se 91 (35-105) IU/L NT-Pro-B Natriuret Pep 698 H (0-450) pg/mL Total Protein 5.9 L (6.6-8.7) g/dL Albumin 3.4 L (3.5-5.2) g/dL Globulin 2.5 (1.3-4.6) g/dL Blood Type Rho(D) Type Antibody Screen Crossmatch 06/27/20 Range/Units 12:53 WBC (4.0-10.0) 10^3/ uL RBC (4.1-5.3) 10^6/u L Hgb (11.5-15.3) g/dL Hct (37.0-47.0) % MCV (81-99) fL MCH (28.0-34.0) pg MCHC (30.0-36.0) g/dL RDW (12.1-15.1) % Plt Count (130-400) 10^3/c mm MPV (7.4-10.4) fL Neut % (Auto) % Lymph % (Auto) % [place] % (Auto) % Eos % (Auto) % Baso % (Auto) % Neut # (Auto) (1.8-7.7) 10^3/u L Lymph # (Auto) (0.8-4.8) 10^3/u L [place] # (Auto) (0.2-0.9) 10^3/u L Eos # (Auto) (0.0-0.8) 10^3/u L Baso # (Auto) (0.0-0.1) 10^3/u L Nucleated RBC % (a uto) % Nucleated RBCs # /100WBC Sodium (136-145) mmol/L Potassium (3.5-5.1) mmol/L Chloride (98-107) mmol/L Carbon Dioxide (22-29) mmol/L Anion Gap (5-19) BUN (8-23) mg/dL Creatinine (0.5-0.9) mg/dL GFR Calculation Glucose (65-115) mg/dL POC Glucose (70-110) mg/dL Calculated Osmolal ity (285-295) mOsm/k g Calcium (8.5-10.5) mg/dL Total Bilirubin (0.15-1.2) mg/dL AST (0-32) U/L ALT (0-33) U/L Alkaline Phosphata se (35-105) IU/L NT-Pro-B Natriuret Pep (0-450) pg/mL Total Protein (6.6-8.7) g/dL Albumin (3.5-5.2) g/dL Globulin (1.3-4.6) g/dL Blood Type O Positive Rho(D) Type Positive Antibody Screen Negative Crossmatch See Detail Discharge Plan Discharge Patient Disposition: Admitted As Inpatient Admit Provider: Carl Paulino Clinical Impression: Symptomatic anemia GI bleed Qualifiers: GI bleed type/associated pathology: unspecified gastrointestinal hemorrhage type Qualified Code(s): K92.2 - Gastrointestinal hemorrhage, unspecified Condition: Stable Coding Level of Care Code ED Neurophysiological Technician for Chg Fwd Exam Comprehensive Documented by User: Gerald Jung 06/27/20 16:12 HPI - Weakness General: Chief complaint: Weakness Stated complaint: increased lethargy/ hyperglycemia Time Seen by Provider: 06/27/20 11:51 PFSH ED PFSH: Medical History (Updated 06/27/20 @ 16:12 by Carl Paulino MD) Atherosclerosis of coronary artery of [place] heart CAD (coronary artery disease) Chronic episodic atrial fibrillation Depression Diabetes Fibromyalgia GERD (gastroesophageal reflux disease) Hypertension Hypocholesteremia Polymyalgia rheumatica Thyroid disease Surgical History H/O: hysterectomy History of appendectomy History of back surgery History of bilateral knee replacement Hx of cataract surgery Social History Smoking and tobacco status: never smoked History of recent travel: No Course Vital Signs: Vital signs: Vital Signs Temperature 98.4 F 06/27/20 15:38 Pulse Rate 103 H 06/27/20 15:38 Respiratory Rate 21 H 06/27/20 15:38 Blood Pressure 128/66 06/27/20 15:38 Pulse Oximetry 97 06/27/20 15:38 MDM - Weakness Lab Data: Labs: Lab Results 06/27/20 06/27/20 06/27/20 Range/Units 11:59 12:13 12:13 WBC 11.9 H (4.0-10.0) 10^3/ uL RBC 2.61 L (4.1-5.3) 10^6/u L Hgb 5.5 L* (11.5-15.3) g/dL Hct 21.4 L (37.0-47.0) % MCV 82.0 (81-99) fL MCH 21.1 L (28.0-34.0) pg MCHC 25.7 L (30.0-36.0) g/dL RDW 21.4 H (12.1-15.1) % Plt Count 412 H (130-400) 10^3/c mm MPV 10.0 (7.4-10.4) fL Neut % (Auto) 92.0 % Lymph % (Auto) 3.9 % [place] % (Auto) 2.3 % Eos % (Auto) 0.2 % Baso % (Auto) 0.3 % Neut # (Auto) 10.96 H (1.8-7.7) 10^3/u L Lymph # (Auto) 0.5 L (0.8-4.8) 10^3/u L [place] # (Auto) 0.3 (0.2-0.9) 10^3/u L Eos # (Auto) 0.0 (0.0-0.8) 10^3/u L Baso # (Auto) 0.0 (0.0-0.1) 10^3/u L Nucleated RBC % (a uto) 2.9 % Nucleated RBCs # 0.3 /100WBC Sodium 134 L (136-145) mmol/L Potassium 4.6 (3.5-5.1) mmol/L Chloride 96 L (98-107) mmol/L Carbon Dioxide 26 (22-29) mmol/L Anion Gap 16.6 (5-19) BUN 32 H (8-23) mg/dL Creatinine 1.4 H (0.5-0.9) mg/dL GFR Calculation Not Reportable Glucose 354 H (65-115) mg/dL POC Glucose 388 H (70-110) mg/dL Calculated Osmolal ity 299 H (285-295) mOsm/k g Calcium 7.7 L (8.5-10.5) mg/dL Total Bilirubin 0.2 (0.15-1.2) mg/dL AST 23 (0-32) U/L ALT 13 (0-33) U/L Alkaline Phosphata se 91 (35-105) IU/L NT-Pro-B Natriuret Pep 698 H (0-450) pg/mL Total Protein 5.9 L (6.6-8.7) g/dL Albumin 3.4 L (3.5-5.2) g/dL Globulin 2.5 (1.3-4.6) g/dL Blood Type Rho(D) Type Antibody Screen Crossmatch 06/27/20 Range/Units 12:53 WBC (4.0-10.0) 10^3/ uL RBC (4.1-5.3) 10^6/u L Hgb (11.5-15.3) g/dL Hct (37.0-47.0) % MCV (81-99) fL MCH (28.0-34.0) pg MCHC (30.0-36.0) g/dL RDW (12.1-15.1) % Plt Count (130-400) 10^3/c mm MPV (7.4-10.4) fL Neut % (Auto) % Lymph % (Auto) % [place] % (Auto) % Eos % (Auto) % Baso % (Auto) % Neut # (Auto) (1.8-7.7) 10^3/u L Lymph # (Auto) (0.8-4.8) 10^3/u L [place] # (Auto) (0.2-0.9) 10^3/u L Eos # (Auto) (0.0-0.8) 10^3/u L Baso # (Auto) (0.0-0.1) 10^3/u L Nucleated RBC % (a uto) % Nucleated RBCs # /100WBC Sodium (136-145) mmol/L Potassium (3.5-5.1) mmol/L Chloride (98-107) mmol/L Carbon Dioxide (22-29) mmol/L Anion Gap (5-19) BUN (8-23) mg/dL Creatinine (0.5-0.9) mg/dL GFR Calculation Glucose (65-115) mg/dL POC Glucose (70-110) mg/dL Calculated Osmolal ity (285-295) mOsm/k g Calcium (8.5-10.5) mg/dL Total Bilirubin (0.15-1.2) mg/dL AST (0-32) U/L ALT (0-33) U/L Alkaline Phosphata se (35-105) IU/L NT-Pro-B Natriuret Pep (0-450) pg/mL Total Protein (6.6-8.7) g/dL Albumin (3.5-5.2) g/dL Globulin (1.3-4.6) g/dL Blood Type O Positive Rho(D) Type Positive Antibody Screen Negative Crossmatch See Detail Discharge Plan Discharge Patient Disposition: Admitted As Inpatient Admit Provider: Carl Paulino Clinical Impression: Symptomatic anemia GI bleed Qualifiers: GI bleed type/associated pathology: unspecified gastrointestinal hemorrhage type Qualified Code(s): K92.2 - Gastrointestinal hemorrhage, unspecified Condition: Stable Coding Level of Care Code ED Neurophysiological Technician for [place] Fwd Exam Comprehensive
--- NOTE | 2020-06-27 15:55 | P.CONIM_ITS ---
Providers/Reason For Consult Consulting Physican/Specialty*: Reinaldo Brady MD Reason for Consult*: GI bleed Requesting Physcian: Dr. Paulino Primary Care Provider: Guillaume Calvo MD History of Present Illness History of Present Illness Chief Complaint: I have black stools History of present illness: Emily Murillo is a 84 year old female long term resident with history of obesity and associated multiple medical comorbidities including atrial fibrillation, hypothyroidism, diabetes mellitus type 2. Patient presents to the emergency department with worsening fatigue and weakness and she has been passing black stools according to her description for the past month or so. And was found to be profoundly anemic with hemoglobin of 5+ which is requiring blood transfusion and general surgery was consulted for GI service for potential endoscopies. Patient denies any hematemesis or fresh blood per rectum, she reports to me when I asked her that she had previous EGD in the past and a colonoscopy but that was a while ago. And she denies history of known peptic ulcer disease, she is currently on aspirin and prednisone. Patient is escorted by her spouse bedside in the emergency department. Patient was seen and evaluated in ER room''4'' Review of Systems General: Reports: 10 or more systems reviewed and unremarkable except in HPI and below Meds/Allergies Home Medications and Allergies Home Medications Medication Instructions Recorded Confirmed Last Taken Type glimepiride 4 mg PO BID 07/10/19 06/27/20 07/21/19 History allopurinol 100 mg PO DAILY 07/22/19 06/27/20 07/21/19 History levothyroxine [Synthroid] 125 mcg PO DAILY 07/22/19 06/27/20 07/22/19 History pregabalin [Lyrica] 25 mg PO BID 07/22/19 06/27/20 07/21/19 History rivastigmine tartrate 1.5 mg PO BID 07/22/19 06/27/20 07/21/19 History acetaminophen 325 mg tablet 650 mg PO BEDTIME PRN tab 10/10/19 06/27/20 Unknown History aspirin 81 mg tablet,delayed 81 mg PO DAILY 10/10/19 06/27/20 Unknown History release furosemide 20 mg tablet 20 mg PO DAILY 10/10/19 06/27/20 Unknown History nitroglycerin 0.4 mg sublingual 0.4 mg SUBLINGUAL Q5M PRN 10/10/19 06/27/20 Unknown History tablet prednisone 10 mg tablet 10 mg PO DAILY 10/10/19 06/27/20 Unknown History protein 1 each PO DAILY 10/10/19 06/27/20 Unknown History carbidopa ER 25 mg-levodopa 100 mg 1 tab PO TID #90 tab 01/14/20 06/27/20 Unknown Rx tablet,extended release metoprolol tartrate 25 mg tablet 25 mg PO DAILY #30 tab 01/14/20 06/27/20 Unknown Rx insulin detemir U-100 100 unit/mL 55 unit SUBCUT BID ml 04/21/20 06/27/20 Unknown History (3 mL) subcutaneous pen imipramine HCl 10 mg PO DAILY 06/27/20 06/27/20 Unknown History potassium chloride 20 meq PO DAILY 06/27/20 06/27/20 Unknown History Allergies Allergy/AdvReac Type Severity Reaction Status Date / Time codeine Allergy Unknown UNKNOWN Verified 06/27/20 16:36 morphine Allergy Unknown Verified 06/27/20 16:36 Penicillins Allergy Unknown Verified 06/27/20 16:36 Quinolones Allergy Unknown Verified 06/27/20 16:36 Sulfa (Sulfonamide Allergy Unknown Verified 06/27/20 16:36 Antibiotics) PFSH Acute PFSH: Medical History Atherosclerosis of coronary artery of [place] heart CAD (coronary artery disease) Chronic episodic atrial fibrillation Depression Diabetes Fibromyalgia GERD (gastroesophageal reflux disease) Hypertension Hypocholesteremia Polymyalgia rheumatica Thyroid disease Surgical History H/O: hysterectomy History of appendectomy History of back surgery History of bilateral knee replacement Hx of cataract surgery Social History Smoking and tobacco status: never smoked History of recent travel: No Vitals/I&O/Wt Last Vital Signs Temp 98.4 F 06/27/20 15:38 Pulse 103 H 06/27/20 15:38 Resp 21 H 06/27/20 15:38 BP 128/66 06/27/20 15:38 Pulse Ox 97 06/27/20 15:38 06/27/20 06/27/20 06/27/20 06:59 14:59 22:59 Intake Total 0 / 0 Balance 0 / 0 Weight last 48 hrs Weight 222 lb Physical Exam Narrative: EXAM NARRATIVE: Patient is conscious alert oriented X3 BMI 37 Head and neck examination PERRLA no masses no cervical lymphadenopathy no jaundice Cardiac examination audible S1-S2 no murmurs no gallops no arrhythmias Chest is clear bilateral,abscence of Rhonchi or wheezes,no surgical emphysema Abdomen nontender nondistended soft no organomegaly guarding or rigidity/no signs of peritonitis Obese Perianal examination shows pressure injury ulcers stage II located on bilateral buttocks the one on the right measures 1 x 2 cm and the one on the left measures 1 x 2.5 cm. Surrounding bilateral buttocks excoriation but no abscess formation Digital rectal examination shows normal colored brown stools with no rectal masses Physical examination was done in the presence of female press and blow machine tender nursing staff Jo A&P Assessment and plan (1) Anemia: After history taking physical examination and reviewing the chart, if continues to be a concern about the patient's source of anemia likely she would benefit from upper and lower endoscopies, yet she will require blood transfusion and resuscitation per hospitalist service prior to any invasive procedure and will make sure that her cardiac status would tolerate any procedures. Giving the fact that the patient does not have melanotic stool per clinical examination today and there is no evidence of bleeding per orifices, I would recommend further resuscitation and scopes can be done down the road I would also recommend for anemia work-up to rule out anemia of chronic disease. Patient can have clear liquid diet I did discuss the plan of care with the patient and her spouse and both agreed accordingly Thank you for consulting general surgery to participate taking care Ms. Murillo Status: Acute (2) Stage 2 pressure ulcer with suspected deep tissue injury: Frequent turning of patient in the bed every 2 hours Appropriate mattress OptiForm application daily Zinc oxide cream application at the excoriated portion of the skin prevent further skin breaks Assurance and education All questions have been answered and all concerns have been addressed to patient's satisfaction. Status: Acute Consult Attestations Medical Necessity Statement: Inpatient hospitalization for medical and surgical care Time Spent in Patient Care: 16 - 35 minutes (>than 50% of time spent in counselling and/or direct pt care on unit) . Coding Level of Care Code Acute Clearance Coordinator for Arabella Cates Diagnoses Anemia D64.9 Stage 2 pressure ulcer with suspected deep tissue injury L89.92
--- NOTE | 2020-06-27 16:03 | PM.HP ---
Providers/Chief Complaint Primary Care Provider: Guillaume Calvo MD Chief Complaint: increased lethargy/ hyperglycemia History of Present Illness Emily Murillo is a 84 year old female This is a 84-year-old female with history of insulin-dependent diabetes, coronary artery disease, chronic atrial fibrillation, depression, dementia, GERD, hypertension who presented to the ER with complaints of weakness and lethargy and hyperglycemia. At the shelter patient was noted to have blood sugars greater than 500. She was also noted to have a hemoglobin of less than then 5.5. On arrival patient was noted to also have hyperglycemia. She was tachycardic. Her blood pressure was stable. Occult test was abnormal. She was noted to have brown stool. Patient does report that she had dark almost black stool. She is also noted to have abnormal EKG. She denies any chest pain shortness of breath or dizziness. She does report lethargy. Earlier in the ER she did report nausea. Review of Systems General: Reports: 10 or more systems reviewed and unremarkable except in HPI and below Const: Reports: fatigue; Denies: fever(s) Card: Denies: chest pain or palpitations Resp: Denies: dyspnea or productive cough GI: Reports: nausea; Denies: abdominal pain Skin/Breast: Denies: rash or pruritus Neuro: Reports: weakness in extremities; Denies: headache(s) Psych: Denies: anxiety or depression Bra[place]io/Lymph: Denies: easy bruising or easy bleeding All/Imm: Denies: urticaria or throat swelling Medications/Allergies Home Medications Medication Instructions Recorded Confirmed Last Taken Type glimepiride 4 mg PO BID 07/10/19 06/27/20 07/21/19 History allopurinol 100 mg PO DAILY 07/22/19 06/27/20 07/21/19 History levothyroxine [Synthroid] 125 mcg PO DAILY 07/22/19 06/27/20 07/22/19 History pregabalin [Lyrica] 25 mg PO BID 07/22/19 06/27/20 07/21/19 History rivastigmine tartrate 1.5 mg PO BID 07/22/19 06/27/20 07/21/19 History acetaminophen 325 mg tablet 650 mg PO BEDTIME PRN tab 10/10/19 06/27/20 Unknown History aspirin 81 mg tablet,delayed 81 mg PO DAILY 10/10/19 06/27/20 Unknown History release furosemide 20 mg tablet 20 mg PO DAILY 10/10/19 06/27/20 Unknown History nitroglycerin 0.4 mg sublingual 0.4 mg SUBLINGUAL Q5M PRN 10/10/19 06/27/20 Unknown History tablet prednisone 10 mg tablet 10 mg PO DAILY 10/10/19 06/27/20 Unknown History protein 1 each PO DAILY 10/10/19 06/27/20 Unknown History carbidopa ER 25 mg-levodopa 100 mg 1 tab PO TID #90 tab 01/14/20 06/27/20 Unknown Rx tablet,extended release metoprolol tartrate 25 mg tablet 25 mg PO DAILY #30 tab 01/14/20 06/27/20 Unknown Rx insulin detemir U-100 100 unit/mL 55 unit SUBCUT BID ml 04/21/20 06/27/20 Unknown History (3 mL) subcutaneous pen imipramine HCl 10 mg PO DAILY 06/27/20 06/27/20 Unknown History potassium chloride 20 meq PO DAILY 06/27/20 06/27/20 Unknown History Allergies Allergy/AdvReac Type Severity Reaction Status Date / Time codeine Allergy Unknown UNKNOWN Verified 06/10/20 13:11 morphine Allergy Unknown Verified 06/10/20 13:11 Penicillins Allergy Unknown Verified 06/10/20 13:11 Quinolones Allergy Unknown Verified 06/10/20 13:11 Sulfa (Sulfonamide Allergy Unknown Verified 06/10/20 13:11 Antibiotics) PFSH Acute PFSH: Medical History (Updated 06/27/20 @ 16:12 by Carl Paulino MD) Atherosclerosis of coronary artery of [place] heart CAD (coronary artery disease) Chronic episodic atrial fibrillation Depression Diabetes Fibromyalgia GERD (gastroesophageal reflux disease) Hypertension Hypocholesteremia Polymyalgia rheumatica Thyroid disease Surgical History H/O: hysterectomy History of appendectomy History of back surgery History of bilateral knee replacement Hx of cataract surgery Social History Smoking and tobacco status: never smoked History of recent travel: No Vitals/I&O/Wt Last Vital Signs Temp 98.4 F 06/27/20 15:38 Pulse 103 H 06/27/20 15:38 Resp 21 H 06/27/20 15:38 BP 128/66 06/27/20 15:38 Pulse Ox 97 06/27/20 15:38 06/27/20 06/27/20 06/27/20 06:59 14:59 22:59 Intake Total 0 / 0 Balance 0 / 0 Weight last 48 hrs Weight 222 lb Physical Exam Const: COMMON NORMALS: no acute distress GENERAL APPEARANCE: cooperative NUTRITIONAL APPEARANCE: obese Eye: COMMON NORMALS: Equal, round and reactive pupils present and EOMs intact bilaterally Resp: COMMON NORMALS: No use of accessory muscles and clear to auscultation bilaterally Cardio: RATE: tachycardic GI: COMMON NORMALS: Soft to palpation and non-tender Neuro: SENSORIUM/ORIENTATION: Yes alert Data : 06/27/20 12:13 06/27/20 12:13 A&P Assessment and plan (1) Symptomatic anemia: Status: Acute (2) GI bleed: Status: Acute Qualifiers: GI bleed type/associated pathology: unspecified gastrointestinal hemorrhage type Qualified Code(s): K92.2 - Gastrointestinal hemorrhage, unspecified (3) Atherosclerosis of coronary artery of [place] heart: Status: Acute Qualifiers: Associated angina: without angina Coronary Disease-Associated Artery/Lesion type: [place] artery Qualified Code(s): I25.10 - Atherosclerotic heart disease of [place] coronary artery without angina pectoris (4) Lewy body dementia without behavioral disturbance: Status: Acute (5) Diabetes: Status: Acute Qualifiers: Diabetes mellitus complication status: without complication Diabetes mellitus truck terminal manager insulin use: with truck terminal manager use Diabetes mellitus type: type 2 Qualified Code(s): E11.9 - Type 2 diabetes mellitus without complications; Z79.4 - USP (current) use of insulin (6) Hypertension: Status: Acute Qualifiers: Hypertension type: essential hypertension Qualified Code(s): I10 - Essential (primary) hypertension (7) Polymyalgia rheumatica: Status: Acute (8) NSTEMI (non-ST elevated myocardial infarction): Status: Acute Additional A&P Information This is a 84-year-old female with history of atrial fibrillation, dementia, hypothyroidism, polymyalgia rheumatica on chronic steroids, insulin-dependent diabetes who presented to the ER with hyperglycemia and lethargy. She was noted to have significant anemia. She reports black to dark stools for the last 1 month. She had heme positive stools in the ED. 1. Symptomatic anemia -Secondary to acute blood loss anemia -Blood transfusion started in the ER we will repeat hemoglobin -IV PPI twice daily -Hold aspirin -Surgical consultation, evaluate for possible EGD or colonoscopy -If she develops brisk bleeding would recommend transfer for IR evaluation 2. Chronic steroid use -Oral prednisone for now we will likely change to IV once on the ICU 3. Non-STEMI type II -Troponin, repeat EKG order echocardiogram likely secondary to demand ischemia 4. Insulin-dependent diabetes uncontrolled -Uncontrolled we will monitor fingerstick blood sugars with sliding scale insulin for now hold oral hypoglycemics 5. hypertension -Hold oral antihypertensives 6. Dementia -Medications restarted 7. Hypothyroidism -On replacement Code: Full. she reports that she wants us to do everything I called her Jeffrey and discussed this also. Attestations Medical Necessity Statement*: Emily Murillo's hospital stay will require greater than 2 midnights for GI bleed Coding Level of Care Code Acute Hydraulic Chair Assembler for Chg Fwd Exam Detailed Diagnoses Symptomatic anemia D64.9 GI bleed K92.2 GI bleed type/associated pathology: unspecified gastrointestinal hemorrhage type Atherosclerosis of coronary artery of [place] heart I25.10 Associated angina: without angina Coronary Disease-Associated Artery/Lesion type: [place] artery Lewy body dementia without behavioral disturbance G31.83; F02.80 Diabetes E11.9; Z79.4 Diabetes mellitus complication status: without complication Diabetes mellitus truck terminal manager insulin use: with truck terminal manager use Diabetes mellitus type: type 2 Hypertension I10 Hypertension type: essential hypertension Polymyalgia rheumatica M35.3 NSTEMI (non-ST elevated myocardial infarction) I21.4
--- NOTE | 2020-06-27 16:12 | ECG_ITS ---
[facility] Test Date: 2020-06-27 Pat Name: Emily Murillo Department: Room: 266 Gender: Female Technical Sales Director: : 1935 Requested By: Carl Paulino Order Number: [id number] Jenifer MD: Santhosh Camp M.D. Measurements Intervals [place] Rate: 102 P: 91 MD: 229 QRS: -2 QRSD: 96 T: 41 QT: 357 QTc: 466 Interpretive Statements SINUS TACHYCARDIA WITH FIRST DEGREE AV BLOCK MINIMAL ST DEPRESSION [0.025+ mV ST DEPRESSION] Compared to ECG 06/27/2020 12:38:17 No significant changes Electronically Signed On 06-27-2020 18:23:09 ACTIVITIES COUNSELOR by Santhosh Camp M.D. [id number]
--- NOTE | 2020-06-27 17:12 | PC.NURSE ---
Attempted to give report to med surg, but they did not answer phone.
--- NOTE | 2020-06-27 17:25 | PC.NURSE ---
attempted to call report again, no answer.
[2020-06-27 17:57] LABS: SARS Covid-2 Antigen Negative (Negative)
--- NOTE | 2020-06-27 18:00 | PC.NURSE ---
Recieved report from ER nurse Tasha ZAPIEN
--- NOTE | 2020-06-27 18:12 | ECG_ITS ---
[facility] Test Date: 2020-06-27 Pat Name: Emily Murillo Department: Room: 266 Gender: Female Director Part: : 1935 Requested By: Carl Paulino Order Number: [id number] Jenifer MD: Santhosh Camp M.D. Measurements Intervals [place] Rate: 102 P: 81 MO: 226 QRS: -4 QRSD: 95 T: 29 QT: 355 QTc: 463 Interpretive Statements SINUS TACHYCARDIA WITH FIRST DEGREE AV BLOCK MODERATE ST DEPRESSION [0.05+ mV ST DEPRESSION] Compared to ECG 06/27/2020 17:33:22 No significant changes Electronically Signed On 06-28-2020 18:06:52 UI ENGINEER by Santhosh Camp M.D. [id number]
--- NOTE | 2020-06-27 18:15 | PC.NURSE ---
Received patient to room 266,Patient moved from cot to bed x 4 assist. patients pullup and sheets under patient soaked with urine, cleaned patient with bath wipes, applied aloe vista to patients bottom
--- NOTE | 2020-06-27 20:00 | PC.PHAR ---
verified Sinemet dosage and timing with [facility] in [place] 25-100 1 TID @08,12,16
[2020-06-27 21:00] LABS: Basophils % 0.4 %; Eosinophils % 0.1 %; Hematocrit 26.8 % (37.0-47.0); Lymphocytes # 0.7 10^3/uL (0.8-4.8); Lymphocytes % 7.4 %; Mean Corpuscular HGB Conc 27.2 g/dL (30.0-36.0); Mean Corpuscular Hemoglobin 23.5 pg (28.0-34.0); Mean Corpuscular Volume 86.5 fL (81-99); Monocytes # 0.5 10^3/uL (0.2-0.9); Monocytes % 4.6 %; Neutrophils # 8.42 10^3/uL (1.8-7.7); Neutrophils % 86.5 %; Nucleated Red Blood Cells # 0.4 /100WBC; Nucleated Red Blood Cells % 4.2 %; Platelet Count 342 10^3/cmm (130-400); Red Cell Distribution Width 20.1 % (12.1-15.1); White Blood Count 9.7 10^3/uL (4.0-10.0)
[2020-06-27 21:08] LABS: Hemoglobin 7.3 g/dL (11.5-15.3)
[2020-06-27 21:28] LABS: Glucose Point of Care 111 mg/dL (70-110)
[2020-06-27] MEDS: pregabalin 25 mg Capsule PO (21:45)
[2020-06-27] MEDS: sodium chloride 0.9% 1,000 ML 75 ML IV (21:45)
[2020-06-27] MEDS: carbidopa-levodopa 25-100mg Tablet 1 EACH PO (21:45)
--- NOTE | 2020-06-27 22:12 | ECG_ITS ---
[facility] Test Date: 2020-06-28 Pat Name: Emily Murillo Department: Room: 266 Gender: Female Pecan Picker: ASHKAN AYOUB: 1935 Requested By: Calr Paulino Order Number: [id number] Jenifer MD: Santhosh Camp M.D. Measurements Intervals [place] Rate: 102 P: [place]: QRS: -11 QRSD: 106 T: 50 QT: 357 QTc: 467 Interpretive Statements Sinus tachycardia with first-degree AV block NONSPECIFIC ST & T-WAVE ABNORMALITY ABNORMAL RHYTHM ECG Compared to ECG 06/27/2020 18:39:29 T-wave abnormality now present ST (T wave) deviation no longer present Electronically Signed On 06-28-2020 18:06:43 RETAIL MORTGAGE BANKER by Santhosh Camp M.D. [id number]
[2020-06-27] MEDS: pantoprazole 40 mg SDV IVP (23:54)
[2020-06-28] VITALS (8 sets, daily range): BP systolic 121–128; BP diastolic 63–71; PULSE 86–103; RESP 17; TEMP 36.4–36.8; O2SAT 91–97
[2020-06-28 06:13] LABS: Basophils % 0.3 %; Eosinophils # 0.1 10^3/uL (0.0-0.8); Eosinophils % 1.6 %; Hematocrit 26.8 % (37.0-47.0); Hemoglobin 7.5 g/dL (11.5-15.3); Lymphocytes # 0.8 10^3/uL (0.8-4.8); Lymphocytes % 11.2 %; Mean Corpuscular Hemoglobin 23.6 pg (28.0-34.0); Mean Corpuscular Volume 84.3 fL (81-99); Monocytes # 0.4 10^3/uL (0.2-0.9); Monocytes % 5.2 %; Neutrophils # 5.68 10^3/uL (1.8-7.7); Neutrophils % 80.4 %; Nucleated Red Blood Cells # 0.3 /100WBC; Nucleated Red Blood Cells % 4.1 %; Platelet Count 330 10^3/cmm (130-400); Red Blood Count 3.18 10^6/uL (4.1-5.3); Red Cell Distribution Width 19.8 % (12.1-15.1); White Blood Count 7.1 10^3/uL (4.0-10.0)
[2020-06-28 06:18] LABS: Alanine Aminotransferase 8 U/L (0-33); Alkaline Phosphatase 73 IU/L (35-105); Anion Gap 12.4 (5-19); Aspartate Amino Transferase 24 U/L (0-32); Blood Urea Nitrogen 25 mg/dL (8-23); Calcium 7.9 mg/dL (8.5-10.5); Carbon Dioxide 29 mmol/L (22-29); Chloride 100 mmol/L (98-107); Globulin 2.4 g/dL (1.3-4.6); Glucose 56 mg/dL (65-115); Osmolality Calculated 288 mOsm/kg (285-295); Potassium 3.4 mmol/L (3.5-5.1); Sodium 138 mmol/L (136-145); Total Bilirubin 0.2 mg/dL (0.15-1.2); Total Protein 5.4 g/dL (6.6-8.7)
[2020-06-28 06:49] LABS: Glucose Point of Care 81 mg/dL (70-110)
--- NOTE | 2020-06-28 07:00 | USCV_ITS ---
Emily Murillo Age: 84 Gender: F : 1935 Exam Date: 06/28/2020 07:11 Ordering Phys: Carl Paulino MD Technologist: Chelsea Cobian Exam Location: [facility]_ Indication: NSTEMI T2 BP: 125 / 69 HR: 95 Rhythm: Sinus Technical Quality: Suboptimal MEASUREMENTS (Male / Female) Normal Values 2D ECHO LV Diastolic Diameter PLAX 4.1 cm 4.2 - 5.9 / 3.9 - 5.3 cm LV Systolic Diameter PLAX 2.6 cm LV Chamber Size 3.1 cm IVS Diastolic Thickness 1.6 cm 0.6 - 1.0 / 0.6 - 0.9 cm IVS Systolic Thickness 1.7 cm LVPW Diastolic Thickness 1.0 cm 0.6 - 1.0 / 0.6 - 0.9 cm LVPW Systolic Thickness 1.5 cm LVOT Diameter 1.9 cm LV Ejection Fraction 2D Teich 66.3 % LV Ejection Fraction MOD 2C 75.2 % LV Ejection Fraction 2C AL 76.5 % LA Diameter 2.5 cm LA Width 3.0 cm LA Height 4.4 cm RA Width 2.3 cm RA Height 4.3 cm Aorta at Sinotubular Diameter 2.3 cm M-MODE LV Diastolic Diameter MM 4.3 cm 4.2 - 5.9 / 3.9 - 5.3 cm LV Systolic Diameter MM 2.9 cm LV Ejection Fraction MM Teich 63.5 % IVS Diastolic Thickness MM 1.2 cm 0.6 - 1.0 / 0.6 - 0.9 cm IVS Systolic Thickness MM 1.8 cm LVPW Diastolic Thickness MM 1.0 cm 0.6 - 1.0 / 0.6 - 0.9 cm LVPW Systolic Thickness MM 1.7 cm RV Diastolic Diameter MM 0.6 cm Aortic Annulus Diameter 3.3 cm LA Ao Ratio MM 0.8 MV E Point Septal Separation 0.4 cm DOPPLER AV Peak Velocity 129.0 cm/s LVOT Peak Velocity 89.0 cm/s AV Area Cont Eq vti 2.1 cm squared AV Area Cont Eq pk 2.0 cm squared MV Area PHT 5.0 cm squared MV E' Velocity 101.0 cm/s TR Peak Velocity 209.0 cm/s TR Peak Gradient 17.5 mmHg TV Peak E Velocity 82.0 cm/s Right Atrial Pressure 3.0 mmHg Pulmonary Artery Systolic Pressu 20.5 mmHg PV Peak Velocity 57.0 cm/s RV Acceleration Time 0.1 s RV Ejection Time 0.3 s RV AcT/ET 0.2 FINDINGS Left Ventricle Normal left ventricular size and systolic function with no regional wall motion abnormalities. LVEF is 60 to 65%. Diastolic function is indeterminate. Right Ventricle The right ventricle is normal in size and function. Right Atrium The right atrium is normal in size. Left Atrium The left atrium is normal in size. Mitral Valve Mild mitral annular calcification is seen. There is trace mitral regurgitation. Aortic Valve Not well-visualized. No significant aortic stenosis or regurgitation is seen. Tricuspid Valve Not well-visualized. No significant stenosis or regurgitation is noted. Insufficient TR jet to calculate RVSP. Pulmonic Valve Not well-visualized. Pericardium Normal pericardium without effusion. Aorta Normal ascending aorta dimension. CONCLUSIONS This is technically difficult study. LV systolic function is normal with EF of 60 to 65%. Diastolic function is indeterminate. Mild mitral annular calcification is seen. There is trace mitral regurgitation. Insufficient TR jet to calculate RVSP. Compared to prior study from 12/14/2018, no significant changes are noted. Santhosh Camp MD (Electronically Signed) Final Date: 28 June 2020 08:47 S
--- NOTE | 2020-06-28 07:50 | P.PN_ITS ---
Subjective Subjective: Interval history: Overall patient feels better, no history of passage of black stool or hematemesis overnight Vitals/I&O/Wt Last Vital Signs Temp 98.2 F 06/28/20 07:49 Pulse 99 06/28/20 07:49 Resp 17 06/28/20 07:49 BP 128/70 06/28/20 07:49 Pulse Ox 95 06/28/20 07:49 06/27/20 06/28/20 06/28/20 22:59 06:59 14:59 Intake Total 0 / 0 0 / 0 Balance 0 / 0 0 / 0 Weight last 48 hrs Weight 217 lb 4.8 oz Weight 222 lb Physical Exam Narrative: EXAM NARRATIVE: Patient is conscious alert oriented X3 BMI 36.2 Head and neck examination PERRLA no masses no cervical lymphadenopathy no jaundice Abdomen nontender nondistended soft no organomegaly guarding or rigidity/no signs of peritonitis Obese Data : 06/28/20 04:55 06/28/20 04:55 A&P Assessment and plan (1) Anemia: We will continue conservative measures for now till we get medical clearance to proceed with EGD at least tomorrow Meant to have the patient n.p.o. after midnight Continue the patient to have clear liquid diet for now Although on echocardiogram results Blood transfusion per hospitalist service Please call for any questions or concerns Thank you for consulting general surgery to participate taking care Ms. Murillo Status: Acute (2) Stage 2 pressure ulcer with suspected deep tissue injury: Frequent turning of patient in the bed every 2 hours Appropriate mattress Application of Hydrofera Blue daily on bilateral buttock pressure injury ulcers followed by OptiForm application. Zinc oxide cream application at the excoriated portion of the skin prevent f urther skin breaks Assurance and education All questions have been answered and all concerns have been addressed to patient's satisfaction. Status: Acute Attestations Medical Necessity Statement*: Ongoing inpatient hospitalization for medical and surgical care Time Spent in Patient Care: (>than 50% of time spent in counselling and/or direct pt care on unit) . Coding Level of Care Code Acute Supervisor Education for Arabella Cates Diagnoses Anemia D64.9 Stage 2 pressure ulcer with suspected deep tissue injury L89.92
[2020-06-28] MEDS: pregabalin 25 mg Capsule PO ×2 (09:11→16:11)
[2020-06-28] MEDS: dexamethasone 4 mg/mL INJ 5 MG IVP (09:11)
[2020-06-28] MEDS: carbidopa-levodopa 25-100mg Tablet 1 EACH PO ×3 (09:11→16:11)
[2020-06-28] MEDS: levothyroxine 125 mcg Tablet PO (09:11)
[2020-06-28] MEDS: pantoprazole 40 mg SDV IVP ×2 (11:03→22:35)
[2020-06-28] MEDS: sodium chloride 0.9% 1,000 ML 75 ML IV (11:04)
[2020-06-28 11:13] LABS: Glucose Point of Care 126 mg/dL (70-110)
--- NOTE | 2020-06-28 12:02 | PC.CHAP ---
Pastoral Care Encounter/Spiritual Assessment Type of Contact [] Declined airbrush artist photography visit [] Patient/Family/Request visit [] Outpatient visit [] Follow-up visit [] Physician referral [] Code/Alert [x] Routine visit [] Staff referral [] Actively dying [] Patient sleeping [] Family support [] [] Out of room [] Palliative care [] [] Receiving care in room [] Pre-surgical visit [] Trauma [] Long length of stay [] ICU visit [] Other: Relational/Emotional Strength [] Patient feels connected with others/family/visitors/staff [] Distress [] Loneliness/isolation [] Abandonment Spirituality of Patient [] Person of Serena [] Attends Lutheran of their Serena [] Believes in Prayer [] Reads Bible or Hoahaoism materials [] There are Spiritual issues to be addressed Film And Video Editor Interventions [] Prayer [] Active listening [] Non-anxious presence [] Spiritual/emotional support [] Crisis/trauma care [] Spiritual counseling [] Bereavement support [] Provided bereavement packet [] Provided Bible/devotional materials [] Provided toy/stuffed animal, coloring book to patient or family member [] Provided Communion [] Anointing/[place] [] Salvation [] Completed spiritual assessment [] Other: Impact on Illness or Injury [] Angry [] Fearful [] Anxious [] Often cries [] Exhaustion [] Unable to work [] Unable to attend hinduism [] Unable to walk/stand [] Unable to read [] Unable to drive [] Unable to eat/drink [] Unable to sleep [] Unable to be with family [] Patient intubated [] Other: Summary Time spent with patient
--- NOTE | 2020-06-28 14:14 | PM.PN ---
Subjective Subjective: Interval history: She deny any nausea, vomiting, abdominal pain, No BM. Vitals and labs have been reviewed. Medications: Reviewed: Yes Vitals/I&O/Wt Last Vital Signs Temp 98.3 F 06/28/20 11:38 Pulse 99 06/28/20 11:38 Resp 17 06/28/20 11:38 BP 122/63 06/28/20 11:38 Pulse Ox 94 06/28/20 11:38 06/27/20 06/28/20 06/28/20 22:59 06:59 14:59 Intake Total 0 / 0 0 / 0 998.75 / 998.75 Balance 0 / 0 0 / 0 998.75 / 998.75 Weight last 48 hrs Weight 98.566 kg Weight 100.698 kg Physical Exam Const: COMMON NORMALS: patient oriented x3 HENMT: COMMON NORMALS: normocephalic and atraumatic HEAD & SCALP: normocephalic and atraumatic Resp: COMMON NORMALS: clear to auscultation bilaterally EFFORT & INSPECTION: Yes symmetric chest movement AUSCULTATION: clear to auscultation bilaterally Cardio: COMMON NORMALS: regular rate, regular rhythm, S1 normal heart sound present, S2 normal heart sound present, No gallops present (Cardio), No murmurs present (Cardio), No rub (Cardio) and Peripheral pulses 2+ throughout RATE: regular rate RHYTHM: regular rhythm HEART SOUNDS: S1 normal heart sound present and S2 normal heart sound present PERIPHERAL PULSES: Peripheral pulses 2+ throughout GI: COMMON NORMALS: Normal to inspection, nondistended, normoactive bowel sounds present, Soft to palpation, non-tender, No hepatosplenomegaly present and no masses AUSCULTATION: Yes normoactive bowel sounds PALPATION: Yes Soft to palpation and Yes No hepatosplenomegaly present RECTAL EXAM: deferred Extremity: COMMON NORMALS: no clubbing, cyanosis or edema and no pedal edema Neuro: COMMON NORMALS: patient oriented x3 Data : 06/28/20 04:55 06/28/20 04:55 A&P Assessment and plan (1) Symptomatic anemia: Status: Acute (2) GI bleed: Status: Acute Qualifiers: GI bleed type/associated pathology: unspecified gastrointestinal hemorrhage type Qualified Code(s): K92.2 - Gastrointestinal hemorrhage, unspecified (3) Atherosclerosis of coronary artery of [place] heart: Status: Acute Qualifiers: Coronary Disease-Associated Artery/Lesion type: [place] artery Associated angina: without angina Qualified Code(s): I25.10 - Atherosclerotic heart disease of [place] coronary artery without angina pectoris (4) Lewy body dementia without behavioral disturbance: Status: Acute (5) Diabetes: Status: Acute Qualifiers: Diabetes mellitus type: type 2 Diabetes mellitus intermediate insulin use: with rat exterminator use Diabetes mellitus complication status: without complication Qualified Code(s): E11.9 - Type 2 diabetes mellitus without complications; Z79.4 - senior living (current) use of insulin (6) Hypertension: Status: Acute Qualifiers: Hypertension type: essential hypertension Qualified Code(s): I10 - Essential (primary) hypertension (7) Polymyalgia rheumatica: Status: Acute (8) NSTEMI (non-ST elevated myocardial infarction): Status: Acute Additional A&P Information This is a 84-year-old female with history of atrial fibrillation, dementia, hypothyroidism, polymyalgia rheumatica on chronic steroids, insulin-dependent diabetes who presented to the ER with hyperglycemia and lethargy. She was noted to have significant anemia. She reports black to dark stools for the last 1 month. She had heme positive stools in the ED. 1. Symptomatic anemia -Secondary to acute blood loss anemia -Blood transfusion started in the ER we will repeat hemoglobin -IV PPI twice daily -Hold aspirin -NPO Midnight for EGD in am -Surgery rec appreciated. -If she develops brisk bleeding would recommend transfer for IR evaluation 2. PMR : Chronic steroid use -Oral prednisone for now we will likely change to IV once on the ICU 3. Non-STEMI type II -Troponin, repeat EKG order echocardiogram likely secondary to demand ischemia 4. Insulin-dependent diabetes uncontrolled -Uncontrolled we will monitor fingerstick blood sugars with sliding scale insulin for now hold oral hypoglycemics 5. hypertension -Hold oral antihypertensives 6. Dementia -Medications restarted 7. Hypothyroidism -On replacement Code: Full. she reports that she wants us to do everything I called her Jeffrey and discussed this also. Attestations Medical Necessity Statement*: Patient needs to be in hospital for the management of Symptomatic Anemia Coding Level of Care Code Acute Spar Finisher for [facility] Diagnoses Symptomatic anemia D64.9 GI bleed K92.2 GI bleed type/associated pathology: unspecified gastrointestinal hemorrhage type Atherosclerosis of coronary artery of [place] heart I25.10 Coronary Disease-Associated Artery/Lesion type: [place] artery Associated angina: without angina Lewy body dementia without behavioral disturbance G31.83; F02.80 Diabetes E11.9; Z79.4 Diabetes mellitus type: type 2 Diabetes mellitus rat exterminator insulin use: with rat exterminator use Diabetes mellitus complication status: without complication Hypertension I10 Hypertension type: essential hypertension Polymyalgia rheumatica M35.3 NSTEMI (non-ST elevated myocardial infarction) I21.4
[2020-06-28 16:53] LABS: Glucose Point of Care 400 mg/dL (70-110)
[2020-06-28 21:30] LABS: Glucose Point of Care 294 mg/dL (70-110)
[2020-06-29] VITALS (17 sets, daily range): BP systolic 114–167; BP diastolic 66–81; PULSE 80–93; RESP 16–18; TEMP 36.1–37.2; O2SAT 93–100
[2020-06-29] MEDS: sodium chloride 0.9% 1,000 ML 75 ML IV ×2 (02:13→13:22)
[2020-06-29 07:03] LABS: Basophils % 0.1 %; Eosinophils % 0.1 %; Hematocrit 25.8 % (37.0-47.0); Lymphocytes # 0.8 10^3/uL (0.8-4.8); Lymphocytes % 9.4 %; Mean Corpuscular HGB Conc 27.1 g/dL (30.0-36.0); Mean Corpuscular Volume 84.6 fL (81-99); Mean Platelet Volume 10.1 fL (7.4-10.4); Monocytes # 0.4 10^3/uL (0.2-0.9); Monocytes % 4.6 %; Neutrophils # 6.79 10^3/uL (1.8-7.7); Neutrophils % 85.2 %; Nucleated Red Blood Cells # 0.1 /100WBC; Nucleated Red Blood Cells % 1.8 %; Platelet Count 333 10^3/cmm (130-400); Red Blood Count 3.05 10^6/uL (4.1-5.3); Red Cell Distribution Width 20.2 % (12.1-15.1)
--- NOTE | 2020-06-29 07:03 | P.PN_ITS ---
Subjective Subjective: Interval history: Patient overall is about the same. No evidence of bleeding Vitals/I&O/Wt Last Vital Signs Temp 97.5 F L 06/29/20 04:00 Pulse 81 06/29/20 06:00 Resp 18 06/29/20 04:00 BP 119/68 06/29/20 04:00 Pulse Ox 97 06/29/20 04:00 06/28/20 06/29/20 06/29/20 22:59 06:59 14:59 Intake Total 0 / 1418.75 1000 / 2418.75 Balance 0 / 1418.75 1000 / 2418.75 Weight last 48 hrs Weight 217 lb 4.8 oz Weight 217 lb 4.8 oz Weight 222 lb Physical Exam Narrative: EXAM NARRATIVE: Patient is conscious alert oriented X3 BMI 36.2 Head and neck examination PERRLA no masses no cervical lymphadenopathy no jaundice Abdomen nontender nondistended soft no organomegaly guarding or rigidity/no signs of peritonitis Obese Data : 06/28/20 04:55 06/28/20 04:55 A&P Assessment and plan (1) Anemia: Plan of care; After thorough history and physical examination and reviewing the chart, plan to perform a diagnostic esophagogastroduodenoscopy with possible biopsy in the GI lab. I discussed with the patient in detail the risk,benefits,alternatives and indications.The risk of aspiration, bleeding, soft tissue injury, perforation of the stomach/esophagus and other potential concomitant complications were explained to the patient in details.The patient understood this well and did agree to proceed. Rationale was carefully and clearly discussed with the patient.Appropriate informed consent have been reviewed and signed All questions have been answered and all concerns have been addressed to patient's satisfaction. Thank you for consulting general surgery to participate taking care Status: Acute (2) Stage 2 pressure ulcer with suspected deep tissue injury: Frequent turning of patient in the bed every 2 hours Appropriate mattress Application of Hydrofera Blue daily on bilateral buttock pressure injury ulcers followed by OptiForm application. Zinc oxide cream application at the excoriated portion of the skin prevent further skin breaks Assurance and education All questions have been answered and all concerns have been addressed to patient's satisfaction. Status: Acute Attestations Medical Necessity Statement*: Ongoing hospitalization for medical and surgical care Time Spent in Patient Care: less than 15 minutes (>than 50% of time spent in counselling and/or direct pt care on unit) . 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
[2020-06-29 07:27] LABS: Glucose Point of Care 209 mg/dL (70-110)
[2020-06-29 07:44] LABS: Alanine Aminotransferase 18 U/L (0-33); Albumin Level 2.9 g/dL (3.5-5.2); Alkaline Phosphatase 73 IU/L (35-105); Anion Gap 12.9 (5-19); Aspartate Amino Transferase 23 U/L (0-32); Blood Urea Nitrogen 19 mg/dL (8-23); Calcium 8.1 mg/dL (8.5-10.5); Carbon Dioxide 26 mmol/L (22-29); Chloride 102 mmol/L (98-107); Globulin 2.4 g/dL (1.3-4.6); Glucose 203 mg/dL (65-115); Osmolality Calculated 292 mOsm/kg (285-295); Potassium 3.9 mmol/L (3.5-5.1); Sodium 137 mmol/L (136-145); Total Bilirubin 0.2 mg/dL (0.15-1.2); Total Protein 5.3 g/dL (6.6-8.7)
--- NOTE | 2020-06-29 08:29 | ANES.PREANE2 ---
Pre-Anesthetic Assessment Pre-Anesthetic Assessment: Height/Weight: Height 1.65 m Weight 98.566 kg Temp Pulse Resp BP Pulse Ox 97.2 F L 85 18 135/80 100 06/29/20 08:09 06/29/20 08:09 06/29/20 08:09 06/29/20 08:09 06/29/20 08:09 Preop Diagnosis: History of melena and anemia Proposed Procedure: Operation Date: 06/29/20 08:00 Proposed Procedures p EGD(Not Applicable) - Reinaldo Brady MD Was Beta Freddie taken within 24 hours: Yes Last intake: Intake Last Liquid Date 06/28/20 Last Liquid Time 23:00 Last Solid Date 06/27/20 Last Solid Time 12:00 Social: Social History: No alcohol and No tobacco Exam: Pre-Anes Outpt Exam: alert, oriented x 3, clear to auscultation bilaterally and regular rate & rhythm Airway: Submandibular: WNL Cervical ROM: WNL MP: 2 Dentition: Full Pulmonary: Pulmonary: None reported CV/HEM: CV/HEM: Anemia, CAD, HTN and VA Comments: Stent : : Chronic renal Insufficiency Hepatic: Hepatic: None reported GI: Comments: GI bleed Metabolic: Metabolic: DM Musc/skel: Comments: PMR, chronic steroids Neuropsych: Neuropsych: Dementia Anesthetic Plan: ASA status: 3E Anesthesia: MAC Risk of > 500 ml blood loss (7ml/kg in children): No Meds/Allergies Current Medications: Current Medications Generic Name Dose Route Start Last Admin Trade Name Freq PRN Reason Stop Dose Admin Carbidopa/Levodopa 1 each 06/27/20 21:00 06/28/20 16:11 Carbidopa-Levodo pa 25-100mg Tablet PO 1 each TID@0800,1200,160 0 BARB Administration Dexamethasone 5 mg 06/28/20 09:00 06/28/20 09:11 Dexamethasone 4 Mg/Ml Inj IVP 5 mg DAILY BARB Administration Sodium Chloride 1,000 mls @ 75 ml s/hr 06/27/20 18:37 06/29/20 02:13 Sodium Chloride 0.9% IV 75 mls/hr .[id number] BARB Administration Insulin Aspart 0 unit 06/27/20 18:00 06/28/20 17:47 Insulin Aspart 1 00 Unit/1 Ml SUBCUT 12 unit TIDWM BARB Administration Protocol Levothyroxine Sodi um 125 mcg 06/28/20 09:00 06/28/20 09:11 Levothyroxine 12 5 Mcg Tablet PO 125 mcg DAILY BARB Administration Pantoprazole Sodiu m 40 mg 06/27/20 23:00 06/28/20 22:35 Pantoprazole 40 Mg Sdv IVP 40 mg Q12H BARB Administration Pregabalin 25 mg 06/27/20 18:37 06/28/20 16:11 Pregabalin 25 Mg Capsule PO 25 mg BID BARB Administration Rivastigmine Tartr ate 1.5 mg 06/27/20 18:37 06/28/20 16:11 Rivastigmine 1.5 Mg Capsule PO 1.5 mg BID BARB Administration PFSH Anesthesia PFSH: Medical History Atherosclerosis of coronary artery of [place] heart CAD (coronary artery disease) Chronic episodic atrial fibrillation Depression Diabetes Fibromyalgia GERD (gastroesophageal reflux disease) Hypertension Hypocholesteremia Polymyalgia rheumatica Thyroid disease Surgical History H/O: hysterectomy History of appendectomy History of back surgery History of bilateral knee replacement Hx of cataract surgery Social History Smoking and tobacco status: never smoked History of recent travel: No Data Anesthesia CBC & Chem 7: 06/29/20 05:59 06/29/20 05:59 Other Labs: Laboratory Results - last 48 hr 06/27/20 06/27/20 06/27/20 11:59 12:13 12:13 WBC 11.9 H RBC 2.61 L Hgb 5.5 L* Hct 21.4 L MCV 82.0 MCH 21.1 L MCHC 25.7 L RDW 21.4 H Plt Count 412 H MPV 10.0 Neut % (Auto) 92.0 Lymph % (Auto) 3.9 [place] % (Auto) 2.3 Eos % (Auto) 0.2 Baso % (Auto) 0.3 Neut # (Auto) 10.96 H Lymph # (Auto) 0.5 L [place] # (Auto) 0.3 Eos # (Auto) 0.0 Baso # (Auto) 0.0 Nucleated RBC % (auto) 2.9 Nucleated RBCs # 0.3 Sodium 134 L Potassium 4.6 Chloride 96 L Carbon Dioxide 26 Anion Gap 16.6 BUN 32 H Creatinine 1.4 H GFR Calculation Not Reportable Glucose 354 H POC Glucose 388 H Calculated Osmolality 299 H Calcium 7.7 L Total Bilirubin 0.2 AST 23 ALT 13 Alkaline Phosphatase 91 NT-Pro-B Natriuret Pep 698 H Total Protein 5.9 L Albumin 3.4 L Globulin 2.5 SARS-CoV-2 Ag (Rapid) Blood Type Rho(D) Type Antibody Screen Crossmatch 06/27/20 06/27/20 06/27/20 12:53 16:55 20:12 WBC 9.7 RBC 3.10 L Hgb 7.3 L D Hct 26.8 L MCV 86.5 D MCH 23.5 L D MCHC 27.2 L D RDW 20.1 H Plt Count 342 MPV 10.0 Neut % (Auto) 86.5 Lymph % (Auto) 7.4 [place] % (Auto) 4.6 Eos % (Auto) 0.1 Baso % (Auto) 0.4 Neut # (Auto) 8.42 H Lymph # (Auto) 0.7 L [place] # (Auto) 0.5 Eos # (Auto) 0.0 Baso # (Auto) 0.0 Nucleated RBC % (auto) 4.2 Nucleated RBCs # 0.4 Sodium Potassium Chloride Carbon Dioxide Anion Gap BUN Creatinine GFR Calculation Glucose POC Glucose Calculated Osmolality Calcium Total Bilirubin AST ALT Alkaline Phosphatase NT-Pro-B Natriuret Pep Total Protein Albumin Globulin SARS-CoV-2 Ag (Rapid) Negative Blood Type O Positive Rho(D) Type Positive Antibody Screen Negative Crossmatch See Detail 06/27/20 06/28/20 06/28/20 21:08 04:55 04:55 WBC 7.1 RBC 3.18 L Hgb 7.5 L Hct 26.8 L MCV 84.3 MCH 23.6 L MCHC 28.0 L RDW 19.8 H Plt Count 330 MPV 10.0 Neut % (Auto) 80.4 Lymph % (Auto) 11.2 [place] % (Auto) 5.2 Eos % (Auto) 1.6 Baso % (Auto) 0.3 Neut # (Auto) 5.68 Lymph # (Auto) 0.8 [place] # (Auto) 0.4 Eos # (Auto) 0.1 Baso # (Auto) 0.0 Nucleated RBC % (auto) 4.1 Nucleated RBCs # 0.3 Sodium 138 Potassium 3.4 L Chloride 100 Carbon Dioxide 29 Anion Gap 12.4 BUN 25 H Creatinine 1.2 H GFR Calculation Not Reportable Glucose 56 L POC Glucose 111 H Calculated Osmolality 288 Calcium 7.9 L Total Bilirubin 0.2 AST 24 ALT 8 Alkaline Phosphatase 73 NT-Pro-B Natriuret Pep Total Protein 5.4 L Albumin 3.0 L Globulin 2.4 SARS-CoV-2 Ag (Rapid) Blood Type Rho(D) Type Antibody Screen Crossmatch 06/28/20 06/28/20 06/28/20 06:36 10:34 16:42 WBC RBC Hgb Hct MCV MCH MCHC RDW Plt Count MPV Neut % (Auto) Lymph % (Auto) [place] % (Auto) Eos % (Auto) Baso % (Auto) Neut # (Auto) Lymph # (Auto) [place] # (Auto) Eos # (Auto) Baso # (Auto) Nucleated RBC % (auto) Nucleated RBCs # Sodium Potassium Chloride Carbon Dioxide Anion Gap BUN Creatinine GFR Calculation Glucose POC Glucose 81 126 H 400 H Calculated Osmolality Calcium Total Bilirubin AST ALT Alkaline Phosphatase NT-Pro-B Natriuret Pep Total Protein Albumin Globulin SARS-CoV-2 Ag (Rapid) Blood Type Rho(D) Type Antibody Screen Crossmatch 06/28/20 06/29/20 06/29/20 21:13 05:59 05:59 WBC 8.0 RBC 3.05 L Hgb 7.0 L Hct 25.8 L MCV 84.6 MCH 23.0 L MCHC 27.1 L RDW 20.2 H Plt Count 333 MPV 10.1 Neut % (Auto) 85.2 Lymph % (Auto) 9.4 [place] % (Auto) 4.6 Eos % (Auto) 0.1 Baso % (Auto) 0.1 Neut # (Auto) 6.79 Lymph # (Auto) 0.8 [place] # (Auto) 0.4 Eos # (Auto) 0.0 Baso # (Auto) 0.0 Nucleated RBC % (auto) 1.8 Nucleated RBCs # 0.1 Sodium 137 Potassium 3.9 Chloride 102 Carbon Dioxide 26 Anion Gap 12.9 BUN 19 Creatinine 1.1 H GFR Calculation Not Reportable Glucose 203 H POC Glucose 294 H Calculated Osmolality 292 Calcium 8.1 L Total Bilirubin 0.2 AST 23 ALT 18 Alkaline Phosphatase 73 NT-Pro-B Natriuret Pep Total Protein 5.3 L Albumin 2.9 L Globulin 2.4 SARS-CoV-2 Ag (Rapid) Blood Type Rho(D) Type Antibody Screen Crossmatch 06/29/20 07:09 WBC RBC Hgb Hct MCV MCH MCHC RDW Plt Count MPV Neut % (Auto) Lymph % (Auto) [place] % (Auto) Eos % (Auto) Baso % (Auto) Neut # (Auto) Lymph # (Auto) [place] # (Auto) Eos # (Auto) Baso # (Auto) Nucleated RBC % (auto) Nucleated RBCs # Sodium Potassium Chloride Carbon Dioxide Anion Gap BUN Creatinine GFR Calculation Glucose POC Glucose 209 H Calculated Osmolality Calcium Total Bilirubin AST ALT Alkaline Phosphatase NT-Pro-B Natriuret Pep Total Protein Albumin Globulin SARS-CoV-2 Ag (Rapid) Blood Type Rho(D) Type Antibody Screen Crossmatch Cardiac Studies: No Data to Display
--- NOTE | 2020-06-29 09:27 | ANE.PACU2 ---
Inpatient post-anesthesia follow up: Airway intact: Yes Vital signs: Temperature 97.2 F Pulse Rate [Monito r] 105 Pulse Rate 85 Respiratory Rate 18 Blood Pressure [Ri ght Arm] 107/65 Blood Pressure 135/80 Pulse Oximetry 100 Oxygen Delivery Me thod Room Air Oxygen Flow Rate Fraction of Inspir ed Oxygen Hydration adequate: Yes Nausea and vomiting: No Pain level: 2 Mental status: Baseline
--- NOTE | 2020-06-29 11:00 | P.PN_ITS ---
Subjective Subjective: Interval history: S/P Failed EGD: Currently on CLD advance as tolerated. Vitals and labs have been reviewed. Medications: Reviewed: Yes Vitals/I&O/Wt Last Vital Signs Temp 97 F L 06/29/20 09:15 Pulse 87 06/29/20 09:15 Resp 18 06/29/20 09:15 BP 151/73 06/29/20 09:15 Pulse Ox 97 06/29/20 09:15 06/28/20 06/29/20 06/29/20 22:59 06:59 14:59 Intake Total 0 / 1418.75 1000 / 2418.75 0 / 0 Output Total 0 / 0 Balance 0 / 1418.75 1000 / 2418.75 0 / 0 Weight last 48 hrs Weight 98.566 kg Weight 98.566 kg Weight 100.698 kg Physical Exam Const: COMMON NORMALS: patient oriented x3 HENMT: COMMON NORMALS: normocephalic and atraumatic HEAD & SCALP: norm ocephalic and atraumatic Chest: CHEST: Yes Symmetrical chest wall rise Resp: COMMON NORMALS: normal respiratory effort, No retractions, No use of accessory muscles and clear to auscultation bilaterally EFFORT & INSPECTION: Yes symmetric chest movement AUSCULTATION: clear to auscultation bilaterally Cardio: COMMON NORMALS: regular rate, regular rhythm, S1 normal heart sound present, S2 normal heart sound present, No gallops present (Cardio), No murmurs present (Cardio), No rub (Cardio) and Peripheral pulses 2+ throughout RATE: regular rate RHYTHM: regular rhythm HEART SOUNDS: S1 normal heart sound present and S2 normal heart sound present PERIPHERAL PULSES: Peripheral pulses 2+ throughout GI: COMMON NORMALS: Normal to inspection, nondistended, normoactive bowel bronson nds present, Soft to palpation, non-tender, No hepatosplenomegaly present and no masses AUSCULTATION: Yes normoactive bowel sounds PALPATION: Yes Soft to palpation and Yes No hepatosplenomegaly present RECTAL EXAM: deferred Extremity: COMMON NORMALS: no clubbing, cyanosis or edema and no pedal edema Neuro: COMMON NORMALS: patient oriented x3 Data : 06/29/20 05:59 06/29/20 05:59 A&P Assessment and plan (1) Symptomatic anemia: Status: Acute (2) GI bleed: Status: Acute Qualifiers: GI bleed type/associated pathology: unspecified gastrointestinal hemorrhage type Qualified Code(s): K92.2 - Gastrointestinal hemorrhage, unspecified (3) Atherosclerosis of coronary artery of [place] heart: Status: Acute Qualifiers: Coronary Disease-Associated Artery/Lesion type: [place] artery Associated angina: without angina Qualified Code(s): I25.10 - Atherosclerotic heart disease of [place] coronary artery without angina pectoris (4) Lewy body dementia without behavioral disturbance: Status: Acute (5) Diabetes: Status: Acute Qualifiers: Diabetes mellitus type: type 2 Diabetes mellitus machine long goods helper insulin use: with machine long goods helper use Diabetes mellitus complication status: without complication Qualified Code(s): E11.9 - Type 2 diabetes mellitus without complications; Z79.4 - exterminator helper termite (current) use of insulin (6) Hypertension: Status: Acute Qualifiers: Hypertension type: essential hypertension Qualified Code(s): I10 - Essential (primary) hypertension (7) Polymyalgia rheumatica: Status: Acute (8) NSTEMI (non-ST elevated myocardial infarction): Status: Acute Additional A&P Information This is a 84-year-old female with history of atrial fibrillation, dementia, hypothyroidism, polymyalgia rheumatica on chronic steroids, insulin-dependent diabetes who presented to the ER with hyperglycemia and lethargy. She was noted to have significant anemia. She reports black to dark stools for the last 1 month. She had heme positive stools in the ED. 1. Symptomatic anemia -Secondary to acute blood loss anemia -Blood transfusion started in the ER, s/p 2 u PRBC. -Monitor CBC -IV PPI twice daily -Hold aspirin -S/P Failed EGD due to esophageal narrowing,will need outpatient repeat EGD at a higher center with facility of pediatric scope. -Esophageal narrowing work up,possibly barrium study. -Surgery rec appreciated. -If she develops brisk bleeding would recommend transfer for IR evaluation 2. PMR : Chronic steroid use -Oral prednisone for now we will likely change to IV once on the ICU 3. Non-STEMI type II -Troponin, repeat EKG order echocardiogram likely secondary to demand ischemia 4. Insulin-dependent diabetes uncontrolled -Uncontrolled we will monitor fingerstick blood sugars with sliding scale insulin for now hold oral hypoglycemics 5. hypertension -Hold oral antihypertensives 6. Dementia -Medications restarted 7. Hypothyroidism -On replacement Code: Full. she reports that she wants us to do everything I called her Jeffrey and discussed this also. 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 [employer] Diagnoses Symptomatic anemia D64.9 GI bleed K92.2 GI bleed type/associated pathology: unspecified gastrointestinal he morrhage type Atherosclerosis of coronary artery of [place] heart I25.10 Coronary Disease-Associated Artery/Lesion type: [place] artery Associated angina: without angina Lewy body dementia without behavioral disturbance G31.83; F02.80 Diabetes E11.9; Z79.4 Diabetes mellitus type: type 2 Diabetes mellitus machine long goods helper insulin use: with alf use Diabetes mellitus complication status: without complication Hypertension I10 Hypertension type: essential hypertension Polymyalgia rheumatica M35.3 NSTEMI (non-ST elevated myocardial infarction) I21.4
[2020-06-29 11:30] LABS: Glucose Point of Care 231 mg/dL (70-110)
[2020-06-29] MEDS: pantoprazole 40 mg SDV IVP ×2 (12:01→22:44)
[2020-06-29] MEDS: carbidopa-levodopa 25-100mg Tablet 1 EACH PO ×2 (12:02→15:41)
[2020-06-29 17:23] LABS: Glucose Point of Care 209 mg/dL (70-110)
[2020-06-29] MEDS: pregabalin 25 mg Capsule PO (17:29)
--- NOTE | 2020-06-29 19:25 | PC.NURSE ---
pt tolerating clear liquids well. pt has been taking PO meds with applesauce. pt complained of no pain today. dressings changed on wounds today.
[2020-06-29 21:39] LABS: Glucose Point of Care 174 mg/dL (70-110)
[2020-06-30] VITALS (15 sets, daily range): BP systolic 124–172; BP diastolic 70–83; PULSE 14–98; RESP 14–18; TEMP 36.4–37.1; O2SAT 92–96; BMI 36.4
[2020-06-30] MEDS: sodium chloride 0.9% (100 ml) 100 ML 10 ML (02:35)
[2020-06-30] MEDS: sodium chloride 0.9% 1,000 ML 75 ML IV (05:43)
[2020-06-30 06:58] LABS: Glucose Point of Care 152 mg/dL (70-110)
[2020-06-30 07:07] LABS: Basophils % 0.3 %; Eosinophils # 0.1 10^3/uL (0.0-0.8); Hematocrit 31.7 % (37.0-47.0); Lymphocytes # 1.4 10^3/uL (0.8-4.8); Lymphocytes % 17.5 %; Mean Corpuscular HGB Conc 28.4 g/dL (30.0-36.0); Mean Corpuscular Hemoglobin 24.5 pg (28.0-34.0); Mean Corpuscular Volume 86.1 fL (81-99); Mean Platelet Volume 9.5 fL (7.4-10.4); Monocytes # 0.3 10^3/uL (0.2-0.9); Monocytes % 3.8 %; Neutrophils # 6.02 10^3/uL (1.8-7.7); Neutrophils % 76.9 %; Nucleated Red Blood Cells # 0.1 /100WBC; Nucleated Red Blood Cells % 1.1 %; Platelet Count 311 10^3/cmm (130-400); Red Blood Count 3.68 10^6/uL (4.1-5.3); Red Cell Distribution Width 19.2 % (12.1-15.1); White Blood Count 7.8 10^3/uL (4.0-10.0)
[2020-06-30 07:22] LABS: Alanine Aminotransferase 21 U/L (0-33); Albumin Level 3.3 g/dL (3.5-5.2); Alkaline Phosphatase 75 IU/L (35-105); Anion Gap 13.7 (5-19); Aspartate Amino Transferase 22 U/L (0-32); Blood Urea Nitrogen 11 mg/dL (8-23); Calcium 8.1 mg/dL (8.5-10.5); Carbon Dioxide 25 mmol/L (22-29); Chloride 107 mmol/L (98-107); Globulin 2.4 g/dL (1.3-4.6); Glucose 161 mg/dL (65-115); Osmolality Calculated 297 mOsm/kg (285-295); Potassium 3.7 mmol/L (3.5-5.1); Sodium 142 mmol/L (136-145); Total Bilirubin 0.3 mg/dL (0.15-1.2); Total Protein 5.7 g/dL (6.6-8.7)
[2020-06-30 07:50] LABS: Slide Review Slide Review Perform
[2020-06-30] MEDS: pregabalin 25 mg Capsule PO ×2 (08:17→17:08)
[2020-06-30] MEDS: levothyroxine 125 mcg Tablet PO (08:17)
[2020-06-30] MEDS: carbidopa-levodopa 25-100mg Tablet 1 EACH PO ×3 (08:17→17:09)
[2020-06-30] MEDS: dexamethasone 4 mg/mL INJ 5 MG IVP (08:18)
[2020-06-30 11:23] LABS: Glucose Point of Care 256 mg/dL (70-110)
[2020-06-30] MEDS: pantoprazole 40 mg SDV IVP ×2 (11:37→22:29)
--- NOTE | 2020-06-30 13:24 | PC.SOCIAL ---
*IMM* Unable to give to patient, did call SNF and give them the info for IMM.
--- NOTE | 2020-06-30 16:09 | P.PN_ITS ---
Subjective Subjective: Interval history: Chart reviewed, hemoglobin up to 9.0 after transfusion of 2 units of PRBCs, normotensive, afebrile, on room air. Resting in bed, would like to get up but would need assistance. Tolerating CLD so far, continued hyperglycemia noted. Medications: Reviewed: Yes Medication Review Details: Active Medications Generic Name Dose Route Start Last Admin Trade Name Freq PRN Reason Stop Dose Admin Carbidopa/Levodopa 1 each 06/27/20 21:00 06/30/20 11:37 Carbidopa-Levodo pa 25-100mg Tablet PO 1 each TID@0800,1200,160 0 BARB Administration Dexamethasone 5 mg 06/28/20 09:00 06/30/20 08:18 Dexamethasone 4 Mg/Ml Inj IVP 5 mg DAILY BARB Administration Dextrose 25 ml 06/27/20 15:30 Dextrose 50% Syr zaida 50 Ml IVP ONCE PRN hypoglycemia prot ocol Protocol Dextrose 50 ml 06/27/20 15:30 Dextrose 50% Syr zaida 50 Ml IVP PRN PRN hypoglycemia prot ocol Protocol Glucagon 1 mg 06/27/20 15:30 Glucagon 1 Mg/Ml Inj 1 Ml IM ONCE PRN Adult Acute Hypog lycemia Prot. Protocol Dextrose 500 mls @ 100 mls /hr 06/27/20 15:30 D5w IV ONCE PRN Adult Acute Hypog lycemia Prot Protocol Sodium Chloride 1,000 mls @ 75 ml s/hr 06/27/20 18:37 06/30/20 05:43 Sodium Chloride 0.9% IV 75 mls/hr .[id number] BARB Administration Insulin Aspart 0 unit 06/27/20 18:00 06/30/20 11:37 Insulin Aspart 1 00 Unit/1 Ml SUBCUT 6 unit TIDWM BARB Administration Protocol Levothyroxine Sodi um 125 mcg 06/28/20 09:00 06/30/20 08:17 Levothyroxine 12 5 Mcg Tablet PO 125 mcg DAILY BARB Administration Ondansetron HCl 4 mg 06/27/20 18:37 Ondansetron 2 Mg /Ml Sdv 2 Ml IVP Q6H PRN NAUSEA AND VOMITI NG Pantoprazole Sodiu m 40 mg 06/27/20 23:00 06/30/20 11:37 Pantoprazole 40 Mg Sdv IVP 40 mg Q12H BARB Administration Pregabalin 25 mg 06/27/20 18:37 06/30/20 08:17 Pregabalin 25 Mg Capsule PO 25 mg BID BARB Administration Rivastigmine Tartr ate 1.5 mg 06/27/20 18:37 06/30/20 08:17 Rivastigmine 1.5 Mg Capsule PO 1.5 mg BID BARB Administration codeine Allergy (Unknown, Verified 06/27/20 16:36) UNKNOWN morphine Allergy (Verified 06/27/20 16:36) Unknown Penicillins Allergy (Verified 06/27/20 16:36) Unknown Quinolones Allergy (Verified 06/27/20 16:36) Unknown Sulfa (Sulfonamide Antibiotics) Allergy (Verified 06/27/20 16:36) Unknown Vitals/I&O/Wt Last Vital Signs Temp 98.0 F 06/30/20 12:00 Pulse 97 06/30/20 14:00 Resp 17 06/30/20 12:00 BP 132/78 06/30/20 12:00 Pulse Ox 92 06/30/20 12:00 06/30/20 06/30/20 06/30/20 06:59 14:59 22:59 Intake Total 1341.25 / 3137.50 480 / 480 Balance 1341.25 / 3137.50 480 / 480 Weight last 48 hrs Weight 99.393 kg Weight 98.566 kg Physical Exam Const: COMMON NORMALS: no acute distress, patient oriented x3 and alert GENERAL APPEARANCE: cooperative and comfortable NUTRITIONAL APPEARANCE: obese morbidly obese ORIENTATION/CONSCIOUSNESS: Yes awake HENMT: COMMON NORMALS: normocephalic, atraumatic, hearing grossly normal bilaterally and moist oral mucous membranes HEAD & SCALP: normocephalic and atraumatic Eye: COMMON NORMALS: Equal, round and reactive pupils present, EOMs intact bilaterally and conjunctivae normal CONJUNCTIVA: Yes conjunctivae normal PUPIL: Yes Equal, round and reactive pupils present Neck/C-Spine: COMMON NORMALS: full ROM GENERAL: Yes normal visual inspection and Yes trachea midline Resp: COMMON NORMALS: normal respiratory effort, No retractions, No use of accessory muscles and clear to auscultation bilaterally EFFORT & INSPECTION: Yes able to speak in complete sentences, Yes symmetric chest movement and No tachypneic AUSCULTATION: clear to auscultation bilaterally OTHER: -on RA Cardio: COMMON NORMALS: regular rate, regular rhythm, S1 normal heart sound present, S2 normal heart sound present and No murmurs present (Cardio) RATE: regular rate RHYTHM: regular rhythm HEART SOUNDS: S1 normal heart sound present and S2 normal heart sound present GI: COMMON NORMALS: Normal to inspection, nondistended, normoactive bowel sounds present, Soft to palpation and non-tender INSPECTION: Yes central obesity PALPATION: Yes Soft to palpation Extremity: COMMON NORMALS: normal to inspection, full ROM and no clubbing, cyanosis or edema; negative for no pedal edema Neuro: COMMON NORMALS: patient oriented x3, moves all extremities, no focal motor deficits and no sensory deficits noted SENSORIUM/ORIENTATION: Yes alert Psych: COMMON NORMALS: mental status grossly normal, Normal thought process present, cooperative, normal affect and speech normal SPEECH: Yes normal speech THOUGHT PROCESS: Normal thought process present Skin: COMMON NORMALS: no rashes or lesions noted, no jaundice, no petechiae and no mottling GENERAL SKIN EXAM: no rashes or lesions noted Data : 06/30/20 05:05 06/30/20 06:48 A&P Assessment and plan (1) GI bleed: -with associated significant acute blood loss anemia, +FOBT -s/p 2 units of PRBCs -Hg up to 9.0 today, continue to trend -continue to monitor for bleeding; if noted acute bleeding would need transfer for IR intervention -failed EGD trial due to noted esophageal narrowing; will need pediatric scope -Surgery evaluation by Dr. Pedro appreciated -on PPI BID -ASA on hold -ST evaluation Status: Acute Qualifiers: GI bleed type/associated pathology: unspecified gastrointestinal hemorrhage type Qualified Code(s): K92.2 - Gastrointestinal hemorrhage, unspecified (2) Hypertension: -VSS; continue to monitor -oral antihypertensives on hold Status: Chronic Qualifiers: Hypertension type: essential hypertension Qualified Code(s): I10 - Essential (primary) hypertension (3) Diabetes: -last A1c-7.5; at goal -Accuchecks, hypoglycemia precautions; escalate ISS given hyperglycemia -consistent carb diet as tolerated -oral hypoglycemics on hold Status: Chronic Qualifiers: Diabetes mellitus complication status: without complication Diabetes mellitus long term care social worker insulin use: with long term care social worker use Diabetes mellitus type: type 2 Qualified Code(s): E11.9 - Type 2 diabetes mellitus without complications; Z79.4 - nursing home (current) use of insulin (4) Polymyalgia rheumatica: -on chronic steroids Status: Chronic (5) NSTEMI (non-ST elevated myocardial infarction): -likely due to demand ischemia secondary to anemia, GI bleed -Echo: EF=60-65%, trace MR -telemetry monitoring Status: Acute Additional A&P Information -Advanced age -Dementia; re-orient as needed; fall precautions -Hypothyroidism; on levothyroxine -PT evaluation in AM -GI ppx with PPI -DVT ppx with SCDs, no AC due to bleeding risk -Dispo: return to [facility] -Code status: FULL code -anticipate d/c in 24-48 hrs if stable Hg Attestations Medical Necessity Statement*: Patient requires hospitalization for continued monitoring of hemoglobin given acute blood loss anemia with need for transfusion of blood products. Time Spent in Patient Care: 16 - 35 minutes (>than 50% of time spent in counselling and/or direct pt care on unit) . 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
[2020-06-30 18:08] LABS: Glucose Point of Care 511 mg/dL (70-110)
[2020-06-30 20:15] LABS: Glucose Point of Care 347 mg/dL (70-110)
[2020-07-01] VITALS (7 sets, daily range): BP systolic 121–149; BP diastolic 67–77; PULSE 66–86; RESP 17; TEMP 36.3–36.6; O2SAT 94–100; BMI 36.4
--- NOTE | 2020-07-01 03:12 | PC.NURSE ---
Patient incontinent of urine large amount of urine in bed pads and brief.
--- NOTE | 2020-07-01 03:26 | PC.NURSE ---
Patient incontinent of urine, large amount of urine bed pads.
[2020-07-01 05:30] LABS: Basophils % 0.1 %; Eosinophils % 0.3 %; Hematocrit 29.3 % (37.0-47.0); Hemoglobin 8.3 g/dL (11.5-15.3); Lymphocytes # 1.2 10^3/uL (0.8-4.8); Lymphocytes % 15.5 %; Mean Corpuscular HGB Conc 28.3 g/dL (30.0-36.0); Mean Corpuscular Hemoglobin 24.2 pg (28.0-34.0); Mean Corpuscular Volume 85.4 fL (81-99); Monocytes # 0.4 10^3/uL (0.2-0.9); Monocytes % 4.5 %; Neutrophils # 6.31 10^3/uL (1.8-7.7); Neutrophils % 79.2 %; Nucleated Red Blood Cells # 0.1 /100WBC; Nucleated Red Blood Cells % 0.8 %; Platelet Count 287 10^3/cmm (130-400); Red Blood Count 3.43 10^6/uL (4.1-5.3); Red Cell Distribution Width 19.7 % (12.1-15.1)
[2020-07-01 05:59] LABS: Anion Gap 13.8 (5-19); Blood Urea Nitrogen 16 mg/dL (8-23); Calcium 8.3 mg/dL (8.5-10.5); Carbon Dioxide 26 mmol/L (22-29); Chloride 102 mmol/L (98-107); Glucose 189 mg/dL (65-115); Osmolality Calculated 292 mOsm/kg (285-295); Potassium 3.8 mmol/L (3.5-5.1); Sodium 138 mmol/L (136-145)
[2020-07-01 07:36] LABS: Glucose Point of Care 209 mg/dL (70-110)
[2020-07-01] MEDS: dexamethasone 4 mg/mL INJ 5 MG IVP (09:32)
[2020-07-01] MEDS: carbidopa-levodopa 25-100mg Tablet 1 EACH PO ×3 (09:34→17:02)
[2020-07-01] MEDS: levothyroxine 125 mcg Tablet PO (09:34)
[2020-07-01] MEDS: pregabalin 25 mg Capsule PO (09:34)
[2020-07-01 11:04] LABS: Glucose Point of Care 202 mg/dL (70-110)
[2020-07-01] MEDS: pantoprazole 40 mg SDV IVP (12:26)
--- NOTE | 2020-07-01 13:15 | P.DS_ITS ---
Discharge Providers Date of Admission: 06/27/20 14:27 Date of Discharge: July 01, 2020 Attending Provider at Admission: Carl Paulino MD Attending Provider at Discharge: Philomena Kramer MD Consults: Surgery, Dr. Pedro Primary Care Provider: Guillaume Calvo MD Diagnoses at Discharge Discharge Diagnosis (1) GI bleed: Status: Acute Permanent problem details: -with associated significant acute blood loss anemia, +FOBT -s/p 2 units of PRBCs -Hg stable -continue to monitor for bleeding; if noted acute bleeding would need transfer for IR intervention -failed EGD trial due to noted esophageal narrowing; will need pediatric scope if need for repeat EGD -Surgery evaluation by Dr. Pedro appreciated -on PPI BID -ASA on hold -ST evaluation appreciated; regular diet consistency recommended Qualifiers: GI bleed type/associated pathology: unspecified gastrointestinal hemorrhage type Qualified Code(s): K92.2 - Gastrointestinal hemorrhage, unspecified (2) Hypertension: Status: Chronic Permanent problem details: -continue antihypertensives Qualifiers: Hypertension type: essential hypertension Qualified Code(s): I10 - Essential (primary) hypertension (3) Diabetes: Status: Chronic Permanent problem details: -continue insulin regimen Qualifiers: Diabetes mellitus type: type 2 Diabetes mellitus superintendent container terminal insulin use: with superintendent container terminal use Diabetes mellitus complication status: without complication Qualified Code(s): E11.9 - Type 2 diabetes mellitus without complications; Z79.4 - correction (current) use of insulin (4) Polymyalgia rheumatica: Status: Chronic Permanent problem details: -on chronic steroids (5) NSTEMI (non-ST elevated myocardial infarction): Status: Acute Permanent problem details: -likely due to demand ischemia secondary to anemia, GI bleed -Echo: EF=60-65%, trace MR -telemetry monitoring Other Information Additional DC diagnoses/information: -Advanced age -Dementia; re-orient as needed; fall precautions -Hypothyroidism; on levothyroxine Reason for Visit Reason for Visit: increased lethargy/ hyperglycemia Hospital Course Hospital Course Patient was admitted to the medical surgical floor after having presented with increased generalized weakness, altered mental status and noted hyperglycemia. She was noted to be significantly anemic with hemoglobin of 5.5 and reported epi sodes of dark stool, prompting transfusion of 2 units of PRBCs. Hemoglobin has been improved following transfusion of blood products and she has had no further noted bleeding during her hospital stay. Due to concern for GI bleed General surgery was consulted and attempt was made to have endoscopic evaluation but due to noted significant esophageal narrowing and inability to pass the scope past t he pharyngeal/proximal esophageal segment procedure was aborted. If patient is to have endoscopic evaluation in the future she will need a pediatric scope. Her dose of aspirin was held and will continue to be held on discharge due to associated bleeding risk. Hyperglycemia continues though this should improve with resumption of her insulin regimen and is likely exacerbated by use of IV steroids which she received during her hospital stay; she is chronically on steroids due to history of polymyalgia rheumatica. Speech evaluation was done and recommendation made for regular diet and regular liquids. She is to resume therapy on return to facility. Repeat CBC is recommended in 2 days to continue to monitor Hg and she is to continue to be monitored for further bleeding which if noted should prompt immediate medical attention. She is to follow up with her primary care physician within 1 week or per SNF. Of note, she was found to have elevated troponins likely reflecting demand ischemia secondary to degree of anemia; Echo is as noted above. Physical Exam Const: COMMON NORMALS: no acute distress, patient oriented x3 and alert GENERAL APPEARANCE: cooperative and comfortable NUTRITIONAL APPEARANCE: obese morbidly obese ORIENTATION/CONSCIOUSNESS: Yes awake HENMT: COMMON NORMALS: normocephalic, atraumatic, hearing grossly normal bilaterally and moist oral mucous membranes HEAD & SCALP: normocephalic and atraumatic Eye: COMMON NORMALS: Equal, round and reactive pupils present, EOMs intact bilaterally and conjunctivae normal CONJUNCTIVA: Yes conjunctivae normal PUPIL: Yes Equal, round and reactive pupils present Neck/C-Spine: COMMON NORMALS: full ROM GENERAL: Yes normal visual inspection and Yes trachea midline Resp: COMMON NORMALS: normal respiratory effort, No retractions, No use of accessory muscles and clear to auscultation bilaterally EFFORT & INSPECTION: Yes able to speak in complete sentences, Yes symmetric chest movement and No tachypneic AUSCULTATION: clear to auscultation bilaterally OTHER: -on RA Cardio: COMMON NORMALS: regular rate, regular rhythm, S1 normal heart sound present, S2 normal heart sound present and No murmurs present (Cardio) RATE: regular rate RHYTHM: regular rhythm HEART SOUNDS: S1 normal heart sound present and S2 normal heart sound present GI: COMMON NORMALS: Normal to inspection, nondistended, normoactive bowel sounds present, Soft to palpation and non-tender INSPECTION: Yes central obesity PALPATION: Yes Soft to palpation Extremity: COMMON NORMALS: normal to inspection, full ROM and no clubbing, cyanosis or edema; negative for no pedal edema Neuro: COMMON NORMALS: patient oriented x3, moves all extremities, no focal motor deficits and no sensory deficits noted SENSORIUM/ORIENTATION: Yes alert Psych: COMMON NORMALS: mental status grossly normal, Normal thought process present, cooperative, normal affect and speech normal SPEECH: Yes normal speech THOUGHT PROCESS: Normal thought process present Skin: COMMON NORMALS: no rashes or lesions noted, no jaundice, no petechiae and no mottling GENERAL SKIN EXAM: no rashes or lesions noted Discharge Data Data Completed and Pending: Completed Studies During Hospitalization Category Date Time Status CT head wo con* 7 0450 Urgent Cat Scan 06/27/20 11:59 Completed XR chest 1V goldy ble [id number] Stat Exams 06/27/20 11:59 Completed CV echo complete* [id number] Routine Ultrasound 06/28/20 07:00 Completed Pending at discharge Category Date Time Status Basic Metabolic P escobar AM LABS Lab 07/02/20 04:00 Ordered Labs from last 24 hours 07/01/20 07/01/20 07/01/20 10:44 07:32 04:29 WBC 8.0 RBC 3.43 L Hgb 8.3 L Hct 29.3 L MCV 85.4 MCH 24.2 L MCHC 28.3 L RDW 19.7 H Plt Count 287 MPV 10.0 Neut % (Auto) 79.2 Lymph % (Auto) 15.5 Woodson % (Auto) 4.5 Eos % (Auto) 0.3 Baso % (Auto) 0.1 Neut # (Auto) 6.31 Lymph # (Auto) 1.2 Woodson # (Auto) 0.4 Eos # (Auto) 0.0 Baso # (Auto) 0.0 Nucleated RBC % (a uto) 0.8 Nucleated RBCs # 0.1 Sodium Potassium Chloride Carbon Dioxide Anion Gap BUN Creatinine GFR Calculation Glucose POC Glucose 202 H 209 H Calculated Osmolal ity Calcium 07/01/20 06/30/20 06/30/20 04:29 20:02 17:56 WBC RBC Hgb Hct MCV MCH MCHC RDW Plt Count MPV Neut % (Auto) Lymph % (Auto) [place]son % (Auto) Eos % (Auto) Baso % (Auto) Neut # (Auto) Lymph # (Auto) [place]son # (Auto) Eos # (Auto) Baso # (Auto) Nucleated RBC % (a uto) Nucleated RBCs # Sodium 138 Potassium 3.8 Chloride 102 Carbon Dioxide 26 Anion Gap 13.8 BUN 16 Creatinine 1.2 H GFR Calculation Not Reportable Glucose 189 H POC Glucose 347 H 511 H* Calculated Osmolal ity 292 Calcium 8.3 L Vitals: Last Vital Signs Temp 97.8 F 07/01/20 11:18 Pulse 78 07/01/20 11:18 Resp 17 07/01/20 11:18 BP 137/77 07/01/20 11:18 Pulse Ox 100 07/01/20 11:18 Discharge Plan Discharge Patient Disposition: Xfer [facility] Condition: Stable Prescriptions: New pantoprazole 40 mg tablet,delayed release (DR/EC) 40 mg PO BID 30 Days Qty: 60 RF: 0 Continued prednisone 10 mg tablet 10 mg PO DAILY RF: 0 furosemide [Lasix] 20 mg tablet 20 mg PO DAILY RF: 0 nitroglycerin [Nitrostat] 0.4 mg tablet, sublingual 0.4 mg SUBLINGUAL Q5M PRN (Reason: Chest Pain) RF: 0 acetaminophen [Tylenol] 325 mg tablet 650 mg PO BEDTIME PRN (Reason: Pain) RF: 0 protein [ProSource] Powder 1 each PO DAILY RF: 0 metoprolol tartrate 25 mg tablet 25 mg PO DAILY Qty: 30 RF: 6 carbidopa-levodopa 25-100 mg tablet extended release 1 tab PO TID Qty: 90 RF: 4 Levemir FlexTouch U-100 Insuln 100 unit/mL (3 mL) insulin pen 55 unit SUBCUT BID RF: 0 glimepiride 4 mg Tablet 4 mg PO BID RF: 0 rivastigmine tartrate 1.5 mg Capsule 1.5 mg PO BID RF: 0 allopurinol 100 mg Tablet 100 mg PO DAILY RF: 0 levothyroxine [Synthroid] 125 mcg Tablet 125 mcg PO DAILY RF: 0 pregabalin [Lyrica] 25 mg Capsule 25 mg PO BID RF: 0 imipramine HCl 10 mg Tablet 10 mg PO DAILY RF: 0 potassium chloride 20 mEq Tablet Extended Release 20 meq PO DAILY RF: 0 Discontinued aspirin [Adult Aspirin Regimen] 81 mg tablet,delayed release (DR/EC) 81 mg PO DAILY RF: 0 Discharge Orders: Discharge Order (Routine); Ordered 07/01/20 Ordered By: Philomena Kramer Referrals: Guillaume Calvo MD [Primary Care Provider] - 4-7 days Discharge Diet: Advance as tolerated and Diabetic Discharge Activity: Increase activity as tolerated and As per PT/OT instructions Activity Restrictions/Additional Instructions: -Patient is to resume therapy on return to facility. -Patient is to have repeat CBC drawn on (07/03/2020) to continue to monitor her hemoglobin. She is to continue to be monitored for any bleeding, which if noted, should prompt immediate medical attention. -Please continue fall precautions -Please note that aspirin has been discontinued due to bleeding risk Discharge Attestations Time Spent in Discharge Care*: greater than 30 min Specific Discharge Activities: discussing with family independence case manager/social workers/dc planners, documenting/other paperwork and evaluating patient/reviewing data Status at Discharge: Cognitive status at discharge: cognitively intact , Behavioral status at discharge: cooperative and dependent in ADL's , Functional status at discharge: other assisted ambulation Overall status at discharge: patient is progressing back to baseline Quality Metrics Clinical Quality Measures During this hospital stay, did patient experience: None Coding Level of Care Code Acute [employer] Senior Specialist for g Fwd Diagnoses GI bleed K92.2 GI bleed type/associated pathology: unspecified gastrointestinal hemorrhage type Hypertension I10 Hypertension type: essential hypertension Diabetes E11.9; Z79.4 Diabetes mellitus type: type 2 Diabetes mellitus [facility] insulin use: with superintendent container terminal use Diabetes mellitus complication status: without complication Polymyalgia rheumatica M35.3 NSTEMI (non-ST elevated myocardial infarction) I21.4
[2020-07-01 17:06] LABS: Glucose Point of Care 421 mg/dL (70-110)
== END 2020-07-01 17:34 | disposition skilled nursing facility (03) | DRG 377 ==
LOC: ER 14:23 → MEDSURG 16:10
PROVIDERS: Internal Medicine; Registered Nurse; Surgery; Admitting Provider Internal Medicine; Emergency Provider Emergency Medicine; PCP Internal Medicine; Visit Provider Family Medicine
PROC: 0DJ08ZZ Inspection of Upper Intestinal Tract, Via Natural or Artificial Opening Endoscopic (ICD-10-PCS; CPT 43235; 2020-06-29 08:00)
DX: K92.2 Gastrointestinal hemorrhage, unspecified (principal); I21.A1 Myocardial infarction type 2; I48.20 Chronic atrial fibrillation, unspecified; D62 Acute posthemorrhagic anemia; E66.09 Other obesity due to excess calories; Z68.36 Body mass index [BMI] 36.0-36.9, adult; E03.9 Hypothyroidism, unspecified; E11.65 Type 2 diabetes mellitus with hyperglycemia; I25.10 Atherosclerotic heart disease of native coronary artery without angina pectoris; F32.9 Major depressive disorder, single episode, unspecified; M79.7 Fibromyalgia; K21.9 Gastro-esophageal reflux disease without esophagitis; I10 Essential (primary) hypertension; E78.00 Pure hypercholesterolemia, unspecified; M35.3 Polymyalgia rheumatica; Z96.653 Presence of artificial knee joint, bilateral; D64.9 Anemia, unspecified; L89.326 Pressure-induced deep tissue damage of left buttock; L89.316 Pressure-induced deep tissue damage of right buttock; G31.83 Neurocognitive disorder with Lewy bodies; F02.80 Dementia in other diseases classified elsewhere, unspecified severity, without behavioral disturbance, psychotic disturbance, mood disturbance, and anxiety; K22.2 Esophageal obstruction; Z79.4 Long term (current) use of insulin; Z79.52 Long term (current) use of systemic steroids
CPT/HCPCS: 12345; 36415; 36416; 36430; 43235; 70450; 71045; 80048; 80053; 82962; 83880; 85025; 86850; 86900; 86920; 87426; 92610; 93005; 93306; 96372; 97161; 99283; 99291; C9113; J1100; J1815; J2704; J3490; J7030; P9016

== ENCOUNTER 2020-07-08 21:18 | Emergency (ER) | payer MEDICARE, OTHER, SELFPAY ==
[2020-07-08 21:21] VITALS: BP 127/58; PULSE 82; RESP 23; TEMP 36.9; O2SAT 95; BMI 36.6
--- NOTE | 2020-07-08 21:38 | ED_ITS ---
HPI - Weakness General: Chief complaint: Weakness Stated complaint: WEAKNESS Time Seen by Provider: 07/08/20 21:32 History of Present Illness: HPI Narrative: Patient arrived via ambulance without any complaints or problems. Ambulance staff said nurse home said she been lethargic and just laying around. When they got there she sat up in chair talking doing fine. Patient has no complaints or problems except that she says her urinary pad had been changed all day. That she feels fine she did not know why she had come up. She is alert oriented x3. Complaint: generalized weakness Onset (ago): hour(s) Duration: improved Associated symptoms: Reports no associated symptoms; Denies chest pain, chills, easy bruising, fever(s), headache(s), nausea or vomiting Review of Systems Narrative: detention staff said she was weak and not responding well and once people found her in a wheelchair set up talking and has did fine on the whole right appear. Const: Denies: fever(s), chills or body aches Eyes: Denies: change in vision or blurry vision ENMT: Denies: throat pain or nasal congestion Card: Denies: chest pain or dyspnea on exertion Resp: Denies: dyspnea, productive cough or non-productive cough GI: Denies: abdominal pain, nausea or vomiting Musc: Denies: extremity pain Skin/Breast: Denies: rash Neuro: Denies: headache(s) Psych: Denies: anxiety or depression Braulio/Lymph: Denies: easy bruising PFSH ED PFSH: Medical History Atherosclerosis of coronary artery of [place] heart CAD (coronary artery disease) Chronic episodic atrial fibrillation Depression Diabetes Fibromyalgia GERD (gastroesophageal reflux disease) Hypertension Hypocholesteremia Polymyalgia rheumatica Thyroid disease Surgical History H/O: hysterectomy History of appendectomy History of back surgery History of bilateral knee replacement Hx of cataract surgery Social History Smoking and tobacco status: never smoked History of recent travel: No Physical Exam Const: COMMON NORMALS: no acute distress, average body habitus and patient oriented x3 HENMT: COMMON NORMALS: normocephalic HEAD & SCALP: normal to inspection and normocephalic FACE & SINUS: normal facial exam Eye: COMMON NORMALS: conjunctivae normal GENERAL EYE: appearance normal, both eyes and all related structures CONJUNCTIVA: Yes conjunctivae normal Neck/C-Spine: COMMON NORMALS: no JVD Chest: COMMONS NORMALS: normal inspection of the chest Resp: COMMON NORMALS: normal respiratory effort and clear to auscultation bilaterally AUSCULTATION: clear to auscultation bilaterally Cardio: COMMON NORMALS: no JVD, regular rate and regular rhythm RATE: regular rate RHYTHM: regular rhythm OTHER: 3+ edema lower extremities GI: COMMON NORMALS: Normal to inspection, nondistended, normoactive bowel sounds present Extremity: COMMON NORMALS: normal to inspection and full ROM Neuro: COMMON NORMALS: patient oriented x3, CN's II-XII intact bilaterally and moves all extremities Course Vital Signs: Vital signs: Vital Signs Temperature 98.5 F 07/08/20 21:21 Pulse Rate 82 07/08/20 21:21 Respiratory Rate 23 H 07/08/20 21:21 Blood Pressure 127/58 07/08/20 21:21 Pulse Oximetry 95 07/08/20 21:21 Discharge Plan Discharge Prescriptions: No Action prednisone 10 mg tablet 10 mg PO DAILY RF: 0 furosemide [Lasix] 20 mg tablet 20 mg PO DAILY RF: 0 nitroglycerin [Nitrostat] 0.4 mg tablet, sublingual 0.4 mg SUBLINGUAL Q5M PRN (Reason: Chest Pain) RF: 0 acetaminophen [Tylenol] 325 mg tablet 650 mg PO BEDTIME PRN (Reason: Pain) RF: 0 protein [ProSource] Powder 1 each PO DAILY RF: 0 metoprolol tartrate 25 mg tablet 25 mg PO DAILY Qty: 30 RF: 6 carbidopa-levodopa 25-100 mg tablet extended release 1 tab PO TID Qty: 90 RF: 4 Levemir FlexTouch U-100 Insuln 100 unit/mL (3 mL) insulin pen 55 unit SUBCUT BID RF: 0 glimepiride 4 mg Tablet 4 mg PO BID RF: 0 rivastigmine tartrate 1.5 mg Capsule 1.5 mg PO BID RF: 0 allopurinol 100 mg Tablet 100 mg PO DAILY RF: 0 levothyroxine [Synthroid] 125 mcg Tablet 125 mcg PO DAILY RF: 0 pregabalin [Lyrica] 25 mg Capsule 25 mg PO BID RF: 0 imipramine HCl 10 mg Tablet 10 mg PO DAILY RF: 0 potassium chloride 20 mEq Tablet Extended Release 20 meq PO DAILY RF: 0 pantoprazole 40 mg tablet,delayed release (DR/EC) 40 mg PO BID 30 Days Qty: 60 RF: 0 Coding Level of Care Code ED Dye Can Operator for [employer] Fwd Exam Comprehensive
--- NOTE | 2020-07-08 21:54 | ECG_ITS ---
[facility] Test Date: 2020-07-08 Pat Name: Emily Murillo Department: Room: Gender: Female Tour Leader: : 1935 Requested By: Anibal Slagado Order Number: [id number] Jenifer MD: Zee Hernandez M.D. Measurements Intervals [place] Rate: 80 P: 85 [place]: 212 QRS: 41 QRSD: 89 T: 44 QT: 383 QTc: 443 Interpretive Statements SINUS RHYTHM WITH FIRST DEGREE AV BLOCK LOW QRS VOLTAGE IN PRECORDIAL LEADS [QRS DEFLECTION < 1.0 mV IN CHEST LEADS] Compared to ECG 06/28/2020 00:01:45 First degree AV block now present Low QRS voltage now present Sinus tachycardia no longer present T-wave abnormality no longer present Electronically Signed On 07-09-2020 19:20:31 VOLTAGE TESTER by Zee Hernandez M.D. [email or web address]
[2020-07-08 22:01] VITALS: BP 116/58; PULSE 79; RESP 19; O2SAT 93
[2020-07-08 22:19] LABS: Alanine Aminotransferase 7 U/L (0-33); Albumin Level 3.2 g/dL (3.5-5.2); Alkaline Phosphatase 100 IU/L (35-105); Anion Gap 13.6 (5-19); Aspartate Amino Transferase 25 U/L (0-32); Blood Urea Nitrogen 38 mg/dL (8-23); Calcium 8.7 mg/dL (8.5-10.5); Carbon Dioxide 29 mmol/L (22-29); Chloride 101 mmol/L (98-107); Globulin 2.8 g/dL (1.3-4.6); Glucose 118 mg/dL (65-115); Osmolality Calculated 298 mOsm/kg (285-295); Potassium 4.6 mmol/L (3.5-5.1); Sodium 139 mmol/L (136-145); Total Bilirubin 0.3 mg/dL (0.15-1.2)
[2020-07-08 22:47] LABS: Basophils % 0.3 %; Eosinophils % 0.3 %; Hematocrit 30.5 % (37.0-47.0); Hemoglobin 8.5 g/dL (11.5-15.3); Lymphocytes # 1.3 10^3/uL (0.8-4.8); Lymphocytes % 11.1 %; Mean Corpuscular HGB Conc 27.9 g/dL (30.0-36.0); Mean Corpuscular Hemoglobin 23.5 pg (28.0-34.0); Mean Corpuscular Volume 84.5 fL (81-99); Mean Platelet Volume 10.1 fL (7.4-10.4); Monocytes # 0.6 10^3/uL (0.2-0.9); Monocytes % 4.9 %; Neutrophils # 9.84 10^3/uL (1.8-7.7); Neutrophils % 82.9 %; Nucleated Red Blood Cells % 0 %; Platelet Count 396 10^3/cmm (130-400); Red Blood Count 3.61 10^6/uL (4.1-5.3); Red Cell Distribution Width 20.7 % (12.1-15.1); White Blood Count 11.9 10^3/uL (4.0-10.0)
[2020-07-08 23:30] VITALS: BP 132/60; PULSE 82; RESP 17; O2SAT 97
[2020-07-08 23:56] VITALS: BP 117/54; PULSE 78; RESP 17; TEMP 36.9; O2SAT 97
== END 2020-07-09 04:06 ==
PROVIDERS: Emergency Provider Nurse Practitioner Family; PCP Internal Medicine
DX: R53.1 Weakness (principal); Z79.4 Long term (current) use of insulin; I25.10 Atherosclerotic heart disease of native coronary artery without angina pectoris; E11.9 Type 2 diabetes mellitus without complications; I10 Essential (primary) hypertension
CPT/HCPCS: 12345; 80053; 85025; 93005; 99283

== ENCOUNTER → 2020-08-28 12:19 | Day surgery (SDC) | payer MEDICARE, OTHER, SELFPAY ==
[2020-08-28 14:12] VITALS: BP 142/55; PULSE 96; RESP 20; TEMP 36.2; O2SAT 96
[2020-08-28 14:41] VITALS: BP 131/61; PULSE 84; RESP 18; TEMP 36.2; O2SAT 96
[2020-08-28 14:56] VITALS: BP 133/60; PULSE 79; RESP 18; TEMP 36.2; O2SAT 95
[2020-08-28 15:11] VITALS: BP 133/60; PULSE 77; RESP 18; TEMP 36.1; O2SAT 96
[2020-08-28 16:11] VITALS: BP 136/65; PULSE 70; RESP 18; TEMP 37; O2SAT 96
== END ==
PROVIDERS: PCP Internal Medicine; Visit Provider Internal Medicine
DX: D64.9 Anemia, unspecified (principal); K92.1 Melena
CPT/HCPCS: 36415; 36430; 86850; 86900; 86920; P9016

== ENCOUNTER 2020-09-04 10:51 | Outpatient (CLI) | payer OTHER, MEDICARE, SELFPAY ==
--- NOTE | 2020-09-04 11:00 | FL_ITS ---
WS: [id number] Modified barium swallow, 09/04/2020 Clinical Data: R13.10 - Dysphagia, unspecified Comparison: None. Fluoroscopy time: 4.5 minutes. Findings: The patient had slight difficulty in initiating oral swallowing. There was mild vallecular residue an d piriformis residue with food and liquids. There was penetration one time but no aspiration. The pat ient swallowed a barium tablet slowly and it stopped at a possible stricture between the hypopharynx and the upper esophagus. FL/FL barium swallow modifd [id number] Impression: 1. Minimal residue with liquids and food on the vallecula and piriformis. 2. Penetration but no aspiration. 3. Probable stricture at the junction between the hypopharynx and upper esophag us.
== END 2020-09-04 10:52 | disposition home or self-care (01) ==
LOC: RAD 10:53
PROVIDERS: PCP Internal Medicine; Visit Provider Surgery
DX: R13.10 Dysphagia, unspecified (principal)
CPT/HCPCS: 74230; 92611

== ENCOUNTER 2020-09-27 07:54 | Inpatient (IN) | payer MEDICARE, OTHER, SELFPAY ==
[2020-09-27] VITALS (15 sets, daily range): BP systolic 95–135; BP diastolic 40–73; PULSE 88–107; RESP 18–22; TEMP 36.4–37.4; O2SAT 91–98; BMI 43.2
--- NOTE | 2020-09-27 07:55 | XRR_ITS ---
PROCEDURE INFORMATION: Exam: XR Chest Exam date and time: 09/27/2020 8:27 AM Age: 85 years old Clinical indication: Lethargy, cough TECHNIQUE: Imaging protocol: XR of the chest Views: 1 view. COMPARISON: CR XR chest 1V portable [id number] 06/27/2020 12:15 PM FINDINGS: Lungs: No focal peripheral lung consolidation, air bronchogram formation, or silhouette sign. Bilateral pulmonary scarring. Pleural spaces: No pleural effusion or pneumothorax. Heart/Mediastinum: The cardiac silhouette is not enlarged. Vasculature: The aorta is atherosclerotic. Bones/joints: Prior anterior cervical fusion. Multilevel disc degeneration in the thoracic spine. Old, healed proximal right humeral fracture. XR/XR chest 1V portable [id number] IMPRESSION: No pneumonia.
--- NOTE | 2020-09-27 07:55 | ECG_ITS ---
[facility] Test Date: 2020-09-27 Pat Name: Emily Murillo Department: Room: Gender: Female Analysis Tester: : 1935 Requested By: Hailey Narayanan Order Number: [id number] Jenifer MD: Lili Grimm M.D. Measurements Intervals [place] Rate: 100 P: 87 MS: 206 QRS: 72 QRSD: 90 T: 74 QT: 364 QTc: 470 Interpretive Statements SINUS TACHYCARDIA Borderline first-degree AV block ABNORMAL RHYTHM ECG Compared to ECG 07/08/2020 21:28:03 Sinus rhythm no longer present Electronically Signed On 09-27-2020 20:23:58 CDT by Lili Grimm M.D. [id number]
--- NOTE | 2020-09-27 07:58 | CTR_ITS ---
PROCEDURE INFORMATION: Exam: CT Head Without Contrast Exam date and time: 09/27/2020 8:27 AM Age: 85 years old Clinical indication: Altered mental status/memory loss; Additional info: AMS, HX of a fib TECHNIQUE: Imaging protocol: Computed tomography of the head without contrast. Radiation optimization: All CT scans at this facility use at least one of these dose optimization techniques: automated exposure control; mA and/or kV adjustment per patient size (includes targeted exams where dose is matched to clinical indication); or iterative reconstruction. COMPARISON: CT head wo con* [id number] 06/27/2020 12:08 PM RADIATION DOSE METRICS: Total DLP (mGy-cm): 798.64 FINDINGS: Brain: No acute appearing brain parenchymal abnormality. No intracranial hemorrhage. No extraaxial fluid collections. There is diffuse cerebral atrophy. There are white matter low attenuation changes in both cerebral hemispheres potentially related to chronic small vessel disease. Cerebral ventricles: No hydrocephalus when allowing for the atrophy. Bones/joints: No calvarial fracture. Paranasal sinuses: Minimal mucoperiosteal thickening, but no fluid in the visualized paranasal sinuses. Mastoid air cells: The visualized mastoid air cells are aerated. Soft tissues: No acute soft tissue abnormality. CT/CT head wo con* [id number] IMPRESSION: No acute intracranial abnormality. Radiation Dose CTDIVOL = (mGy): DLP = 798.64 (mGy-cm)
--- NOTE | 2020-09-27 08:07 | ED_ITS ---
HPI - General Adult General: Chief complaint: Weakness Stated complaint: AMS Time Seen by Provider: 09/27/20 07:54 History of Present Illness: HPI narrative: Patient presents from [facility] with decreased responsiveness nursing staff noticed this morning. They deny any recent falls or trauma. She does have a history of some dementia anemia and A. fib and hypothyroidism. She also has a history of anemia and some dysphagia. Patient is opens her eyes to command she knows she is in the hospital she thinks it is August which is pretty close to September she knows Easter is coming up she denies any specific complaints but when I question her she admi ts to just feeling weak and kind of ill and just not feeling well. She denies having any pain anywhere no nausea vomiting no documented fevers per senior living Patient is a DNR Review of Systems General: Reports: ROS unobtainable due to medical condition Narrative: General: denies fatigue, fever or chills, c/o weakness and just ill feeling HEENT: denies ear pain, denies nasal congestion, denies vision changes, denies sore throat Neck: denies masses or pain Resp: denies cough, denies shortness of breath, denies pleuritic pain Cardio: denies chest pain, denies edema GI: denies abdominal pain, denies N/V/D, denies black/tarry or bloody stools : denies hematuria, denies dysuria Neuro: denies headache, denies dizziness, denies motor or sensory changes Musculoskeletal: denies pain, denies swelling Skin: denies rashes Psych: denies SI or HI Endocrine: denies thyroid symptoms, denies lymphadenopathy all over ROS reviewed and patient denies PFSH ED PFSH: Medical History Atherosclerosis of coronary artery of [place] heart CAD (coronary artery disease) Chronic episodic atrial fibrillation Depression Diabetes -continue insulin regimen Fibromyalgia GERD (gastroesophageal reflux disease) Hypertension -continue antihypertensives Hypocholesteremia Lewy body dementia without behavioral disturbance Polymyalgia rheumatica -on chronic steroids Thyroid disease Surgical History H/O: hysterectomy History of appendectomy History of back surgery History of bilateral knee replacement Hx of cataract surgery Social History (Reviewed 04/03/21 @ 08:11 by JUAN Martínez Smoking and tobacco status: never smoked History of recent travel: No Physical Exam Narrative: EXAM NARRATIVE: General: a/o/1, no distress, resting with eyes closed, opens and answers softly Head: atraumatic HEENT: normal eyes, normal conjunctiva, normal hearing, normal external nose, normal mouth, mucous membranes moist Neck: FROM, trachea midline Chest: normal expansion, no gross deformities Resp: normal speech, no retractions, no accessory muscle use, CTA bilaterally Cardio: regular rate and rhythm and no murmur, mild bilateral peripheral edema, normal peripheral pulses GI: soft, flat non tender, no guarding normal BS, obese : deferred Musculoskeletal: FROM, no pain or gross deformities Neuro: a/o appropriate for age, no gross motor or sensory deficitys, CN II-XII grossly intact, normal coordination, normal speech Skin: no rashes. abrasion type to right abdomen probably from diaper tape Psych: cooperative, normal mood and effect Course Vital Signs: Vital signs: Vital Signs Temperature 99.3 F 09/27/20 09:00 Pulse Rate 100 09/27/20 09:00 Respiratory Rate 18 09/27/20 09:00 Blood Pressure 106/45 09/27/20 09:00 Pulse Oximetry 98 09/27/20 09:00 MDM - General Adult MDM Narrative: Medical decision making narrative: Patient will open her eyes and speak appropriately she is oriented to place she knows Easter is coming she feels it is March is close enough her blood pressure is on the lower end at 106 and some readings at 96/40 patient is on Lasix has coronary artery disease she does have some peripheral edema so will do 250 cc bolus and then do maintenance and monitor closely her lactate is elevated however have to be cautious with her peripheral edema and coronary artery disease Rocephin was started she has numerous allergies urine culture is pending blood cultures are pending feel she needs to be admitted for possible urosepsis but does have SIRS. Patient's senior living paperwork does list her as a DNR Medical Records: Attestation: I reviewed the patient's medical records. Lab Data: Attestation: I reviewed the patient's lab results. Labs: Lab Results 09/27/20 09/27/20 09/27/20 Range/Units 08:52 08:52 08:52 WBC 17.1 H (4.0-10.0) 10^3/ uL RBC 3.78 L (4.1-5.3) 10^6/u L Hgb 8.0 L (11.5-15.3) g/dL Hct 30.1 L (37.0-47.0) % MCV 79.6 L (81-99) fL MCH 21.2 L (28.0-34.0) pg MCHC 26.6 L (30.0-36.0) g/dL RDW 22.1 H (12.1-15.1) % Plt Count 415 H (130-400) 10^3/c mm MPV 9.7 (7.4-10.4) fL Neut % (Auto) 95.1 % Lymph % (Auto) 1.1 % [place] % (Auto) 2.7 % Eos % (Auto) 0.1 % Baso % (Auto) 0.2 % Neut # (Auto) 16.25 H (1.8-7.7) 10^3/u L Lymph # (Auto) 0.2 L (0.8-4.8) 10^3/u L [place] # (Auto) 0.5 (0.2-0.9) 10^3/u L Eos # (Auto) 0.0 (0.0-0.8) 10^3/u L Baso # (Auto) 0.0 (0.0-0.1) 10^3/u L Nucleated RBC % (a uto) 0.8 % Nucleated RBCs # 0.1 /100WBC Sodium 140 (136-145) mmol/L Potassium 5.0 (3.5-5.1) mmol/L Chloride 103 (98-107) mmol/L Carbon Dioxide 24 (22-29) mmol/L Anion Gap 18.0 (5-19) BUN 36 H (8-23) mg/dL Creatinine 1.3 H (0.5-0.9) mg/dL GFR Calculation Not Reportable Glucose 259 H (65-115) mg/dL Calculated Osmolal ity 307 H (285-295) mOsm/k g Lactate 4.5 H* (0.5-2.2) mmol/L Calcium 7.4 L (8.5-10.5) mg/dL Total Bilirubin 0.3 (0.15-1.2) mg/dL AST 14 (0-32) U/L ALT 10 (0-33) U/L Alkaline Phosphata se 111 H (35-105) IU/L Troponin T Baselin e (0-10) ng/L Total Protein 5.3 L (6.6-8.7) g/dL Albumin 3.1 L (3.5-5.2) g/dL Globulin 2.2 (1.3-4.6) g/dL Urine Color (Yellow) Urine Appearance (CLEAR) Urine pH (5-7) Ur Specific Gravit y (1.005-1.030) Urine Protein (Negative) Urine Glucose (UA) (Normal) Urine Ketones (Negative) Urine Blood (Negative) Urine Nitrate (Negative) Urine Bilirubin (Negative) Urine Urobilinogen (Negative) mg/dL Ur Leukocyte Marine ase (Negative) Urine RBC (0-2) /hpf Urine WBC (0-5) /hpf Ur Squamous Epith Cells (0-5) /hpf Amorphous Sediment Urine Bacteria (NONE) /hpf 09/27/20 09/27/20 Range/Units 08:52 08:52 WBC (4.0-10.0) 10^3/ uL RBC (4.1-5.3) 10^6/u L Hgb (11.5-15.3) g/dL Hct (37.0-47.0) % MCV (81-99) fL MCH (28.0-34.0) pg MCHC (30.0-36.0) g/dL RDW (12.1-15.1) % Plt Count (130-400) 10^3/c mm MPV (7.4-10.4) fL Neut % (Auto) % Lymph % (Auto) % [place] % (Auto) % Eos % (Auto) % Baso % (Auto) % Neut # (Auto) (1.8-7.7) 10^3/u L Lymph # (Auto) (0.8-4.8) 10^3/u L [place] # (Auto) (0.2-0.9) 10^3/u L Eos # (Auto) (0.0-0.8) 10^3/u L Baso # (Auto) (0.0-0.1) 10^3/u L Nucleated RBC % (a uto) % Nucleated RBCs # /100WBC Sodium (136-145) mmol/L Potassium (3.5-5.1) mmol/L Chloride (98-107) mmol/L Carbon Dioxide (22-29) mmol/L Anion Gap (5-19) BUN (8-23) mg/dL Creatinine (0.5-0.9) mg/dL GFR Calculation Glucose (65-115) mg/dL Calculated Osmolal ity (285-295) mOsm/k g Lactate (0.5-2.2) mmol/L Calcium (8.5-10.5) mg/dL Total Bilirubin (0.15-1.2) mg/dL AST (0-32) U/L ALT (0-33) U/L Alkaline Phosphata se (35-105) IU/L Troponin T Baselin e 163 H* (0-10) ng/L Total Protein (6.6-8.7) g/dL Albumin (3.5-5.2) g/dL Globulin (1.3-4.6) g/dL Urine Color Dark yellow (Yellow) Urine Appearance Clear (CLEAR) Urine pH 5 (5-7) Ur Specific Gravit y 1.015 (1.005-1.030) Urine Protein Neg (Negative) Urine Glucose (UA) Norm (Normal) Urine Ketones Negative (Negative) Urine Blood Neg (Negative) Urine Nitrate Positive H (Negative) Urine Bilirubin 1+ H (Negative) Urine Urobilinogen 1 H (Negative) mg/dL Ur Leukocyte Marine ase Negative (Negative) Urine RBC None (0-2) /hpf Urine WBC 5-10 H (0-5) /hpf Ur Squamous Epith Cells 0-4 H (0-5) /hpf Amorphous Sediment Not Reportable Urine Bacteria 1+ H (NONE) /hpf EKG Data^: EKG 1: Attestation: I personally reviewed and interpreted this EKG as follows: EKG interpretation date: 09/27/20 EKG interpretation time: 09:54 Interpretation: sinus tach, rate 100, no acute ST changes or elevation, normal intervals Computer generated interpretation: Chest X-Ray 09/27/20 07:55 IMPRESSION: No pneumonia. Head CT 09/27/20 07:58 IMPRESSION: No acute intracranial abnormality. Radiation Dose CTDIVOL = (mGy): DLP = 798.64 (mGy-cm) Discharge Plan Discharge Patient Disposition: Admitted As Inpatient Clinical Impression: SIRS (systemic inflammatory response syndrome) Urinary tract infection Qualifiers: Urinary tract infection type: site unspecified Hematuria presence: without hematuria Qualified Code(s): N39.0 - Urinary tract infection, site not specified Altered mental status Qualifiers: Altered mental status type: somnolence Qualified Code(s): R40.0 - Somnolence Condition: Stable Coding Level of Care Code ED Supervisor Line Department for Arabella Cates
--- NOTE | 2020-09-27 08:52 | PC.NURSE ---
All blood and both blood cultures in lab. Blood cultures due from two different sites. One drawn from Right AC IV, second blood culture drawn from left venipunture.
[2020-09-27 09:06] LABS: Basophils % 0.2 %; Eosinophils % 0.1 %; Hematocrit 30.1 % (37.0-47.0); Lymphocytes # 0.2 10^3/uL (0.8-4.8); Lymphocytes % 1.1 %; Mean Corpuscular HGB Conc 26.6 g/dL (30.0-36.0); Mean Corpuscular Hemoglobin 21.2 pg (28.0-34.0); Mean Corpuscular Volume 79.6 fL (81-99); Mean Platelet Volume 9.7 fL (7.4-10.4); Monocytes # 0.5 10^3/uL (0.2-0.9); Monocytes % 2.7 %; Neutrophils # 16.25 10^3/uL (1.8-7.7); Neutrophils % 95.1 %; Nucleated Red Blood Cells # 0.1 /100WBC; Nucleated Red Blood Cells % 0.8 %; Platelet Count 415 10^3/cmm (130-400); Red Blood Count 3.78 10^6/uL (4.1-5.3); Red Cell Distribution Width 22.1 % (12.1-15.1); White Blood Count 17.1 10^3/uL (4.0-10.0)
--- NOTE | 2020-09-27 09:12 | PC.NURSE ---
Patient received one liter of fluids from EMS
[2020-09-27 09:24] LABS: Alanine Aminotransferase 10 U/L (0-33); Albumin Level 3.1 g/dL (3.5-5.2); Alkaline Phosphatase 111 IU/L (35-105); Aspartate Amino Transferase 14 U/L (0-32); Blood Urea Nitrogen 36 mg/dL (8-23); Calcium 7.4 mg/dL (8.5-10.5); Carbon Dioxide 24 mmol/L (22-29); Chloride 103 mmol/L (98-107); Globulin 2.2 g/dL (1.3-4.6); Glucose 259 mg/dL (65-115); Osmolality Calculated 307 mOsm/kg (285-295); Sodium 140 mmol/L (136-145); Total Bilirubin 0.3 mg/dL (0.15-1.2); Total Protein 5.3 g/dL (6.6-8.7)
[2020-09-27 09:32] LABS: Glucose Urine UA Norm (Normal); Protein Urine Neg (Negative); Specific Gravity, Urine 1.015 (1.005-1.030); Urine Appearance Clear (CLEAR); Urine Color Dark Yellow (Yellow); pH Urine 5 (5-7)
[2020-09-27 09:33] LABS: Add Urine Culture? No; Bacteria Urine 1+ /hpf; Bilirubin Urine 1+ (Negative); Blood Urine Neg (Negative); Ketones Urine Negative (Negative); Leukocyte Esterase Urine Negative (Negative); Nitrate Urine Positive (Negative); Squamous Epithelial Cell Urine 0-4 /hpf (0-5); Urobilinogen Urine 1 mg/dL (Negative)
[2020-09-27 09:50] LABS: Troponin(5th) Baseline 163 ng/L (0-10)
[2020-09-27 09:51] LABS: Lactate (Lactic Acid level) 4.5 mmol/L (0.5-2.2)
[2020-09-27] MEDS: sodium chloride 0.9% 250 ML IV (09:58)
[2020-09-27] MEDS: cefTRIAXone 1,000 MG in sodium chloride 0.9% (plus) 50 ML 100 MG IV (09:59)
[2020-09-27] MEDS: sodium chloride 0.9% 1,000 ML 150 ML IV (10:43)
[2020-09-27 12:18] LABS: Troponin 5 2HR Delta -18.5 ABS# (0-10)
[2020-09-27 12:19] LABS: Troponin 5 2HR 144.5 ng/L (0-10)
--- NOTE | 2020-09-27 12:45 | ECG_ITS ---
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 Measurements Intervals [place] Rate: 96 P: 82 IN: 225 QRS: -10 QRSD: 89 T: 43 QT: 380 QTc: 481 Interpretive Statements SINUS RHYTHM WITH FIRST DEGREE AV BLOCK Compared to ECG 09/27/2020 08:51:17 First degree AV block now present Sinus tachycardia no longer present Electronically Signed On 10-02-2020 21:22:19 CDT by Zee Hernandez M.D. [id number]
--- NOTE | 2020-09-27 12:56 | USCV_ITS ---
Emily Murillo Age: 85 Gender: F : 1935 Exam Date: 09/27/2020 14:45 Ordering Phys: Jorge Samson MD Technologist: [place] [facility] [place]ST [place] BP: 134 / 76 HR: 102 Rhythm: Sinus Technical Quality: Very technically difficult study MEASUREMENTS (Male / Female) Normal Values 2D ECHO LV Diastolic Diameter PLAX 4.2 cm 4.2 - 5.9 / 3.9 - 5.3 cm LV Systolic Diameter PLAX 2.7 cm IVS Diastolic Thickness 1.3 cm 0.6 - 1.0 / 0.6 - 0.9 cm IVS Systolic Thickness 1.3 cm LVPW Diastolic Thickness 0.9 cm 0.6 - 1.0 / 0.6 - 0.9 cm LVPW Systolic Thickness 1.1 cm LVOT Diameter 2.0 cm LV Ejection Fraction 2D Teich 66.3 % LV Ejection Fraction MOD 2C 59.9 % LV Ejection Fraction 2C AL 60.5 % LA Diameter 3.1 cm LA Width 3.8 cm LA Height 4.0 cm RA Width 3.0 cm RA Height 4.1 cm M-MODE LV Diastolic Diameter MM 4.2 cm 4.2 - 5.9 / 3.9 - 5.3 cm LV Systolic Diameter MM 2.4 cm LV Ejection Fraction MM Teich 73.8 % IVS Diastolic Thickness MM 0.8 cm 0.6 - 1.0 / 0.6 - 0.9 cm IVS Systolic Thickness MM 1.6 cm LVPW Diastolic Thickness MM 1.2 cm 0.6 - 1.0 / 0.6 - 0.9 cm LVPW Systolic Thickness MM 1.5 cm RV Diastolic Diameter MM 1.7 cm Aortic Annulus Diameter 3.3 cm LA Ao Ratio MM 1.1 MV E Point Septal Separation 1.1 cm FINDINGS Left Ventricle Normal left ventricular size and systolic function, EF 68 %. No regional wall motion abnormalities. Right Ventricle Possibly normal RV size and ejection fraction. Thickening of the right ventricular free wall Right Atrium Could not be visualized well Left Atrium Possibly of normal size Mitral Valve Thickened mitral valve. Mild mitral annular calcification. Aortic Valve No gross abnormalities. The leaflets could not visualize well Tricuspid Valve Tricuspid valve not well visualized. Pulmonic Valve Pulmonic valve not well visualized. Pericardium Normal pericardium without effusion. Aorta Normal ascending aorta dimension. CONCLUSIONS Normal left ventricular size and systolic function, EF 68 %. No regional wall motion abnormalities. Thickened mitral valve. Mild mitral annular calcification. Thickening of the right ventricular free wall, may suggest pulmonary hypertension PA pressure could not be calculated because of the poor Doppler signals No significant pericardial effusion Comparison with the previous study is difficult because of the difference in the technical quality. Dr Lili Grimm MD FACC (Electronically Signed) Final Date: 27 September 2020 18:46 S
--- NOTE | 2020-09-27 12:58 | PM.HP ---
Providers/Chief Complaint Admitting Physician: Jorge Samson MD Primary Care Provider: Guillaume Calvo MD Chief Complaint: AMS History of Present Illness Emily Murillo is a 85 year old female with PMH of CAD S/P Stent, A.F, DM, HTN, Hypothyroidism, DLD, PMR on chronic steroid Lewy body dementia without behavioral disturbance resident of [facility], came in with c/o decreased responsiveness, she says that she is overall not felling well, she is alert and awake, currently orineted to self ,and place. Upon arrival in the ER she was worked up for above mentioned complain. Imaging studies: C.T Head without contrast : No acute intracranial pathology. Xray chest : No infiltrates,no pleural effusion, no pulmonary congestion, no PTX. EKG : Sinus Tachycardia with 1 st degree AV Block, non specific ST-T Wave abnormality. Pertinent Labs : WBC : 17, H/H: 8/30 PLT : 415 , Na : 140, k : 5, BUN/SCR: 36/1.3 , Lactic acid : 4.5 --> 3.9---> 3.8 RBS: 259 ,HCO3: 24, Troponin T : Baseline : 163, 2h : 144, 2H D: - 18.5 6 H T : Urine analysis : Nitrite :Positive, WBC : 5-10 , ECA Medications:Rochepin 1 gm as well as 250 cc Ns with 75 cc @ hr Review of Systems Const: Denies: fever(s) Card: Denies: palpitations or edema Resp: Denies: dyspnea, productive cough, wheezing or pain on inspiration GI: Denies: abdominal pain Musc: Denies: back pain Medications/Allergies Home Medications Medication Instructions Recorded Confirmed Last Taken Type glimepiride 4 mg PO BID@07/10/19 09/27/20 09/26/20 History allopurinol 100 mg PO DAILY@07/22/19 09/27/20 09/26/20 History levothyroxine [Synthroid] 125 mcg PO DAILY@07/22/19 09/27/20 09/26/20 History acetaminophen 325 mg tablet 650 mg PO BEDTIME PRN tab 10/10/19 09/27/20 Unknown History furosemide 20 mg tablet 20 mg PO DAILY@10/10/19 09/27/20 09/26/20 History nitroglycerin 0.4 mg sublingual 0.4 mg SUBLINGUAL Q5M PRN MDD 3 10/10/19 09/27/20 Unknown History tablet doses insulin detemir U-100 100 unit/mL See Rx Instructions .ROUTE 04/21/20 09/27/20 09/27/20 History (3 mL) subcutaneous pen .COMPLEX ml 55 units potassium chloride 20 meq PO DAILY@08 06/27/20 09/27/20 09/26/20 History amino ac-protein hydr-whey pro See Rx Instructions .ROUTE .COMPLEX 07/08/20 09/27/20 09/26/20 History [ProSource] carbidopa-levodopa 1 tab PO TID@08,12,16 07/08/20 09/27/20 09/26/20 History metoprolol tartrate 25 mg PO DAILY@08 07/08/20 09/27/20 09/26/20 History pantoprazole 40 mg PO BID@06,20 07/08/20 09/27/20 09/27/20 History prednisone 10 mg tablet 10 mg PO DAILY@08 tab 07/14/20 09/27/20 09/26/20 History imipramine HCl 10 mg PO DAILY@08 09/27/20 09/27/20 09/26/20 History pregabalin [Lyrica] 25 mg PO BID@08,09/27/20 09/27/20 09/26/20 History rivastigmine tartrate 1.5 mg PO BID@08,09/27/20 09/27/20 09/26/20 History Allergies Allergy/AdvReac Type Severity Reaction Status Date / Time codeine Allergy Unknown UNKNOWN Verified 09/09/20 11:22 morphine Allergy Unknown Verified 09/09/20 11:22 Penicillins Allergy Unknown Verified 09/09/20 11:22 Quinolones Allergy Unknown Verified 09/09/20 11:22 Sulfa (Sulfonamide Allergy Unknown Verified 09/09/20 11:22 Antibiotics) PFSH Acute PFSH: Medical History Atherosclerosis of coronary artery of [place] heart CAD (coronary artery disease) Chronic episodic atrial fibrillation Depression Diabetes -continue insulin regimen Fibromyalgia GERD (gastroesophageal reflux disease) Hypertension -continue antihypertensives Hypocholesteremia Lewy body dementia without behavioral disturbance Polymyalgia rheumatica -on chronic steroids Thyroid disease Surgical History H/O: hysterectomy History of appendectomy History of back surgery History of bilateral knee replacement Hx of cataract surgery Social History Smoking and tobacco status: never smoked History of recent travel: No Vitals/I&O/Wt Last Vital Signs Temp 98.1 F 09/27/20 11:43 Pulse 88 09/27/20 11:43 Resp 18 09/27/20 11:43 BP 125/70 09/27/20 11:43 Pulse Ox 97 09/27/20 11:43 09/26/20 09/27/20 09/27/20 22:59 06:59 14:59 Intake Total 300 / 300 Balance 300 / 300 Weight last 48 hrs Weight 117.934 kg Physical Exam HENMT: COMMON NORMALS: normocephalic and atraumatic HEAD & SCALP: normocephalic and atraumatic Resp: COMMON NORMALS: clear to auscultation bilaterally EFFORT & INSPECTION: Yes symmetric chest movement AUSCULTATION: clear to auscultation bilaterally Cardio: COMMON NORMALS: regular rate, regular rhythm, S1 normal heart sound present, S2 normal heart sound present, No gallops present (Cardio), No murmurs present (Cardio), No rub (Cardio) and Peripheral pulses 2+ throughout RATE: regular rate RHYTHM: regular rhythm HEART SOUNDS: S1 normal heart sound present and S2 normal heart sound present PERIPHERAL PULSES: Peripheral pulses 2+ throughout GI: COMMON NORMALS: Normal to inspection, nondistended, normoactive bowel sounds present, Soft to palpation, non-tender, No hepatosplenomegaly present and no masses AUSCULTATION: Yes normoactive bowel sounds PALPATION: Yes Soft to palpation and Yes No hepatosplenomegaly present RECTAL EXAM: deferred Extremity: COMMON NORMALS: no clubbing, cyanosis or edema and no pedal edema Neuro: COMMON NORMALS: patient oriented x3 Urinary Catheter Management^: [place]: Cath Placed During This Visit: yes Urinary Catheter Date of Insertion: 09/27/20 Urinary Catheter Time of Insertion: 09:10 Data : 09/27/20 08:52 09/27/20 08:52 Micro: Microbiology 09/27/20 08:57 Blood Culture - Preliminary Blood SPECIMEN COLLECTED 09/27/20 08:42 Blood Culture - Preliminary Blood SPECIMEN COLLECTED A&P Assessment and plan (1) Sepsis: Sepsis 2/2 to UTI : Hypothermia,boderline tachycardia, hypotension,leukocytosis, elevated lactic acid Blood culture Urine Culture Lactic acid Trend : Procal Xray chest Imipenam 250 mg q6 h I. daily Status: Acute (2) Elevated troponin: Likely Type II M.I Patient deny any chest pain, sob, palpitation, nausea, vomiting. EKG :Is not suggestive of any acute myocardial insult 2D Echo : LV size and systolic function :Nl, No RWMA, EF : 68 % Aspirin 81 mg po daily Tele Status: Acute (3) Urinary tract infection: Status: Acute Qualifiers: Hematuria presence: without hematuria Urinary tract infection type: site unspecified Qualified Code(s): N39.0 - Urinary tract infection, site not specified (4) Diabetes: Status: Acute Qualifiers: Diabetes mellitus type: type 2 Diabetes mellitus long-term insulin use: with long-term use Diabetes mellitus complication status: without complication Qualified Code(s): E11.9 - Type 2 diabetes mellitus without complications; 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
[2020-09-27] MEDS: sodium chloride 0.9% 1,000 ML 75 ML IV (13:15)
[2020-09-27] MEDS: enoxaparin 40 mg/0.4 mL Syringe SUBCUT (13:18)
[2020-09-27 14:29] LABS: Lactic Sepsis W/Reflex 3.9 mmol/L (0.5-2.2)
[2020-09-27 14:56] LABS: Reflex Lactate Order REFLEX LACTIC ORDERD
[2020-09-27] MEDS: famotidine 20 mg/2 mL INJ IVP (17:17)
[2020-09-27 17:28] LABS: Lactic Acid level (Lactate) 3.8 mmol/L (0.5-2.2)
[2020-09-27] MEDS: carbidopa-levodopa 25-100mg Tablet 1 EACH PO ×2 (18:25→20:43)
--- NOTE | 2020-09-27 18:45 | ECG_ITS ---
[facility] ED Test Date: 2020-09-27 Pat Name: Emily Murillo Department: Room: 250 Gender: Female [employer] Layout Person: : 1935 Requested By: Jorge Samson Order Number: [id number] Jenifer MD: Zee Hernandez M.D. Measurements Intervals [place] Rate: 107 P: 89 NV: 215 QRS: -2 QRSD: 110 T: 47 QT: 349 QTc: 468 Interpretive Statements SINUS TACHYCARDIA WITH FIRST DEGREE AV BLOCK NONSPECIFIC ST & T-WAVE ABNORMALITY Compared to ECG 09/27/2020 12:57:34 T-wave abnormality now present Sinus rhythm no longer present Electronically Signed On 10-02-2020 21:22:13 CDT by Zee Hernandez M.D. [id number]
--- NOTE | 2020-09-27 20:18 | PC.NURSE ---
shift assessment pt wakes when spoken to, she knows her name and , she is not sure where she is and not sure of the year as she told me it was 2001 then said no it is 2021 but thought it was august. pt was able to move legs in bed but not lift them, her solution maker were even as well. she had no complaints of pain, urine was a dark yellow and clear in color. No other changes this shift.
[2020-09-27] MEDS: pregabalin 25 mg Capsule PO (20:43)
[2020-09-27 21:21] LABS: Glucose Point of Care 252 mg/dL (70-110)
[2020-09-27 23:49] LABS: Thyroid Stimulating Hormone 2.46 uIU/mL (0.27-4.20)
[2020-09-28] VITALS (8 sets, daily range): BP systolic 107–143; BP diastolic 67–83; PULSE 89–107; RESP 16–18; TEMP 36.7–37.1; O2SAT 90–98
[2020-09-28] MEDS: sodium chloride 0.9% 1,000 ML 75 ML IV (03:05)
[2020-09-28] MEDS: levothyroxine 125 mcg Tablet PO (05:46)
[2020-09-28] MEDS: famotidine 20 mg/2 mL INJ IVP ×2 (05:47→17:58)
[2020-09-28 06:18] LABS: Basophils % 0.2 %; Eosinophils % 0.2 %; Hematocrit 27.3 % (37.0-47.0); Hemoglobin 7.2 g/dL (11.5-15.3); Lymphocytes # 0.6 10^3/uL (0.8-4.8); Lymphocytes % 6.3 %; Mean Corpuscular HGB Conc 26.4 g/dL (30.0-36.0); Mean Corpuscular Hemoglobin 21.1 pg (28.0-34.0); Mean Corpuscular Volume 80.1 fL (81-99); Mean Platelet Volume 9.8 fL (7.4-10.4); Monocytes # 0.4 10^3/uL (0.2-0.9); Monocytes % 3.7 %; Neutrophils # 8.38 10^3/uL (1.8-7.7); Neutrophils % 88.8 %; Nucleated Red Blood Cells % 0.2 %; Platelet Count 328 10^3/cmm (130-400); Red Blood Count 3.41 10^6/uL (4.1-5.3); Red Cell Distribution Width 22.1 % (12.1-15.1); White Blood Count 9.4 10^3/uL (4.0-10.0)
[2020-09-28 06:47] LABS: NT Pro B Type Natriuretic Pept 403 pg/mL (0-450); Procalcitonin 0.46 ng/mL (0-0.5)
[2020-09-28 06:51] LABS: Glucose Point of Care 163 mg/dL (70-110)
[2020-09-28 06:59] LABS: Alanine Aminotransferase < 5 U/L (0-33); Albumin Level 2.7 g/dL (3.5-5.2); Alkaline Phosphatase 90 IU/L (35-105); Aspartate Amino Transferase 12 U/L (0-32); Blood Urea Nitrogen 29 mg/dL (8-23); Calcium 7.3 mg/dL (8.5-10.5); Carbon Dioxide 26 mmol/L (22-29); Chloride 108 mmol/L (98-107); Globulin 2.9 g/dL (1.3-4.6); Glucose 142 mg/dL (65-115); Magnesium 1.8 mg/dL (1.7-2.3); Osmolality Calculated 302 mOsm/kg (285-295); Sodium 142 mmol/L (136-145); Total Bilirubin 0.2 mg/dL (0.15-1.2); Total Protein 5.6 g/dL (6.6-8.7)
[2020-09-28] MEDS: allopurinol 100 mg Tablet PO (09:34)
[2020-09-28] MEDS: aspirin 81 mg Chew Tablet PO (09:34)
[2020-09-28] MEDS: predniSONE 10 mg Tablet PO (09:34)
[2020-09-28] MEDS: pregabalin 25 mg Capsule PO ×2 (09:34→20:27)
[2020-09-28] MEDS: carbidopa-levodopa 25-100mg Tablet 1 EACH PO ×3 (09:34→20:27)
[2020-09-28 11:04] LABS: Glucose Point of Care 132 mg/dL (70-110)
[2020-09-28 11:19] LABS: Troponin T (5th) Once 150 ng/L (0-10)
--- NOTE | 2020-09-28 11:19 | PC.NURSE ---
THIS NURSE ANSWERED THE PHONE. LAB WAS CALLING ABOUT A CRITICAL ON THIS PT. TROPONIN OF 150. DR WAS ON THE FLOOR AND THIS NURSE NOTIFIED HIM OF THE VALUE.
--- NOTE | 2020-09-28 12:20 | PM.PN ---
Subjective Subjective: Interval history: Patient was seen and examined this morning.Currently she is more alert and awake, she wants to eat and was asking for water.Deny any chest pain, sob,nausea,vomitting headache,confusion. WBC is trending down, has remained afebrile. Vitals/I&O/Wt Last Vital Signs Temp 98.7 F 09/28/20 11:50 Pulse 89 09/28/20 11:50 Resp 18 09/28/20 11:50 BP 130/83 09/28/20 11:50 Pulse Ox 90 09/28/20 03:44 09/27/20 09/28/20 09/28/20 22:59 06:59 14:59 Intake Total 1200 / 1500 1100 / 2600 460 / 460 Output Total 1000 / 1000 250 / 1250 Balance 200 / 500 850 / 1350 460 / 460 Weight last 48 hrs Weight 117.934 kg Physical Exam Const: COMMON NORMALS: patient oriented x3 HENMT: COMMON NORMALS: normocephalic and atraumatic HEAD & SCALP: normocephalic and atraumatic Resp: COMMON NORMALS: clear to auscultation bilaterally EFFORT & INSPECTION: Yes symmetric chest movement AUSCULTATION: clear to auscultation bilaterally Cardio: COMMON NORMALS: regular rate, regular rhythm, S1 normal heart sound present, S2 normal heart sound present, No gallops present (Cardio), No murmurs present (Cardio), No rub (Cardio) and Peripheral pulses 2+ throughout RATE: regular rate RHYTHM: regular rhythm HEART SOUNDS: S1 normal heart sound present and S2 normal heart sound present PERIPHERAL PULSES: Peripheral pulses 2+ throughout GI: COMMON NORMALS: Normal to inspection, nondistended, normoactive bowel sounds present, Soft to palpation, non-tender, No hepatosplenomegaly present and no masses AUSCULTATION: Yes normoactive bowel sounds PALPATION: Yes Soft to palpation and Yes No hepatosplenomegaly present RECTAL EXAM: deferred Extremity: COMMON NORMALS: no clubbing, cyanosis or edema and no pedal edema Neuro: COMMON NORMALS: patient oriented x3 Urinary Catheter Management^: Holley: Cath Placed During This Visit: yes Reason for Continuing Indwelling Catheter: Assist healing open wound Urinary Catheter Date of Insertion: 09/27/20 Urinary Catheter Time of Insertion: 09:10 Data : 09/28/20 05:38 09/28/20 05:38 Micro: Microbiology 09/27/20 08:52 Urine Culture - Preliminary Urine Catheterized Gram Negative Rods 09/27/20 08:57 Blood Culture - Preliminary Blood NEGATIVE TO DATE 09/27/20 08:42 Blood Culture - Preliminary Blood NEGATIVE TO DATE A&P Assessment and plan (1) Sepsis: Sepsis 2/2 to UTI : Hypothermia,boderline tachycardia, hypotension,leukocytosis, elevated lactic acid. Blood culture :NTD Urine Culture :GNR Lactic acid Trend :Trending down. Procal :0.46 Xray chest: No focal peripheral lung consolidation, air bronchogram formation, or silhouette sign. Bilateral pulmonary scarring. Pleural spaces: No pleural effusion or pneumothorax. Imipenam 250 mg q6 h I. daily. Status: Acute (2) Elevated troponin: Likely Type II M.I From sepsis Patient deny any chest pain, sob, palpitation, nausea, vomiting. EKG :Is not suggestive of any acute myocardial insult. 2D Echo : LV size and systolic function :Nl, No RWMA, EF : 68 % Aspirin 81 mg po daily Tele Status: Acute (3) Urinary tract infection: Status: Acute Qualifiers: Hematuria presence: without hematuria Urinary tract infection type: site unspecified Qualified Code(s): N39.0 - Urinary tract infection, site not specified (4) Diabetes: Status: Acute Qualifiers: Diabetes mellitus complication status: without complication Diabetes mellitus marine oil terminal superintendent insulin use: with half-way use Diabetes mellitus type: type 2 Qualified Code(s): E11.9 - Type 2 diabetes mellitus without complications; Z79.4 - long term (current) use of insulin (5) Altered mental status: Ac Metabolic Encephalopathy : Resolved Status: Acute Qualifiers: Altered mental status type: somnolence Qualified Code(s): R40.0 - Somnolence (6) Lewy body dementia without behavioral disturbance: Carbidopa/Levodopa 1 tab po TID Status: Acute (7) Atrial fibrillation: Currently rate controlled. Not on Ac as she has prior h/o G.I Bleed. Status: Acute (8) Hypothyroidism: Levothyroxine 125 mcg po daily Status: Acute Additional A&P Information #PMR : On Prednisone 10 mg po daily #Gout : On Allopurinol 100 mg po daily Code Status :AND Dvt PPx:Lovenox Attestations Medical Necessity Statement*: Patient needs to be in hospital for the management of sepsis 2/2 UTI. Coding Level of Care Code Acute Bible Teacher for Chg Fwd Exam Detailed Diagnoses Sepsis A41.9 Elevated troponin R77.8 Urinary tract infection N39.0 Hematuria presence: without hematuria Urinary tract infection type: site unspecified Diabetes E11.9; Z79.4 Diabetes mellitus complication status: without complication Diabetes mellitus half-way insulin use: with marine oil terminal superintendent use Diabetes mellitus type: type 2 Altered mental status R40.0 Altered mental status type: somnolence Lewy body dementia without behavioral disturbance G31.83; F02.80 Atrial fibrillation I48.91 Hypothyroidism E03.9
[2020-09-28] MEDS: enoxaparin 40 mg/0.4 mL Syringe SUBCUT (14:54)
[2020-09-28 17:41] LABS: Glucose Point of Care 185 mg/dL (70-110)
--- NOTE | 2020-09-28 20:01 | PC.NURSE ---
shift assessment pt is more edematous than my hailey shift, physician was notified of this finding, pt had reddness to inner thigh and an order for nystatin was obtained. pt had brown drainage when changing her this evening and so physician was notified. pt has become more alert in the afternoon she could tell me what her medication i was giving her, the use, and the physician that ordered it. pt dressing to buttocks was changed. no other changes at this time.
[2020-09-28 21:32] LABS: Glucose Point of Care 212 mg/dL (70-110)
[2020-09-29] VITALS (13 sets, daily range): BP systolic 128–151; BP diastolic 68–81; PULSE 83–103; RESP 16–18; TEMP 36.3–36.9; O2SAT 93–97
[2020-09-29 05:20] LABS: Basophils % 0.3 %; Eosinophils # 0.1 10^3/uL (0.0-0.8); Eosinophils % 0.7 %; Hematocrit 24.5 % (37.0-47.0); Lymphocytes # 0.8 10^3/uL (0.8-4.8); Lymphocytes % 11.2 %; Mean Corpuscular HGB Conc 26.1 g/dL (30.0-36.0); Mean Corpuscular Hemoglobin 21.3 pg (28.0-34.0); Mean Corpuscular Volume 81.7 fL (81-99); Mean Platelet Volume 10.1 fL (7.4-10.4); Monocytes # 0.4 10^3/uL (0.2-0.9); Monocytes % 4.9 %; Neutrophils # 6.14 10^3/uL (1.8-7.7); Neutrophils % 82.1 %; Nucleated Red Blood Cells % 0.3 %; Platelet Count 291 10^3/cmm (130-400); White Blood Count 7.5 10^3/uL (4.0-10.0)
[2020-09-29 05:28] LABS: Hemoglobin 6.4 g/dL (11.5-15.3)
[2020-09-29] MEDS: famotidine 20 mg/2 mL INJ IVP (05:29)
[2020-09-29 05:39] LABS: Alanine Aminotransferase 6 U/L (0-33); Albumin Level 2.7 g/dL (3.5-5.2); Alkaline Phosphatase 89 IU/L (35-105); Anion Gap 9.4 (5-19); Aspartate Amino Transferase 19 U/L (0-32); Blood Urea Nitrogen 25 mg/dL (8-23); Calcium 7.9 mg/dL (8.5-10.5); Carbon Dioxide 22 mmol/L (22-29); Chloride 109 mmol/L (98-107); Globulin 2.4 g/dL (1.3-4.6); Glucose 173 mg/dL (65-115); Osmolality Calculated 293 mOsm/kg (285-295); Potassium 3.4 mmol/L (3.5-5.1); Sodium 137 mmol/L (136-145); Total Bilirubin 0.2 mg/dL (0.15-1.2); Total Protein 5.1 g/dL (6.6-8.7)
[2020-09-29 05:55] LABS: Urine Appearance Clear (CLEAR); Urine Color Yellow (Yellow); pH Urine 5 (5-7)
[2020-09-29 05:56] LABS: Add Urine Microscopic? YES; Bilirubin Urine Neg (Negative); Blood Urine Neg (Negative); Glucose Urine UA Norm (Normal); Ketones Urine 1+ (Negative); Leukocyte Esterase Urine Trace (Negative); Nitrate Urine Negative (Negative); Protein Urine Neg (Negative); Urobilinogen Urine 1 mg/dL (Negative)
[2020-09-29 05:57] LABS: Add Urine Culture? Yes; Bacteria Urine 1+ /hpf; Mucus Urine 1+ /hpf; RBC Urine 0-4 /hpf (0-2); Squamous Epithelial Cell Urine 0-4 /hpf (0-5); WBC Urine 25-40 /hpf (0-5)
[2020-09-29] MEDS: levothyroxine 125 mcg Tablet PO (06:04)
[2020-09-29 06:35] LABS: Glucose Point of Care 192 mg/dL (70-110)
--- NOTE | 2020-09-29 07:41 | PC.NURSE ---
ABNORMAL DISCHARGE: TAILER OFF CAME TO THIS NURSE TO REPORT THAT THERE WAS AN ABNORMAL DISCHARGE ON THE PATIENT'S BED. UPON INSPECTION, IT WAS HARD TO DETERMINE THE SOURCE. IT IS EITHER RECTUM OR VAGINAL. IT IS CREAMY IN COLOR WITH STREAKS OF BRIGHT RED BLOOD. CARD ROOM MANAGER HOSPITALIST CALLED AND NOTIFIED. UA ORDERED AND SENT.
[2020-09-29] MEDS: predniSONE 10 mg Tablet PO (09:02)
[2020-09-29] MEDS: carbidopa-levodopa 25-100mg Tablet 1 EACH PO ×3 (09:02→20:59)
[2020-09-29] MEDS: allopurinol 100 mg Tablet PO (09:02)
[2020-09-29] MEDS: pregabalin 25 mg Capsule PO ×2 (09:12→20:59)
[2020-09-29] MEDS: nystatin powder 15 gm Btl 1 APPLIC TOPICAL ×2 (09:12→17:44)
--- NOTE | 2020-09-29 09:26 | P.PN_ITS ---
Subjective Subjective: Interval history: Patient was seen and examined this morning.Currently she deny SOB, Chest pain,no fever, cough. Am h/h : Dropped to 6.4/24 as compared to admission H/H : 8 , no reyes,no BRBPR,no hematuria,no coffee ground emesis. Her B/P Has remained stable. Medications: Reviewed: Yes Vitals/I&O/Wt Last Vital Signs Temp 97.8 F 09/29/20 07:05 Pulse 87 09/29/20 07:05 Resp 18 09/29/20 07:05 BP 137/81 09/29/20 07:05 Pulse Ox 96 09/29/20 07:05 09/28/20 09/29/20 09/29/20 22:59 06:59 14:59 Intake Total 200 / 1625 100 / 1725 Output Total 0 / 0 800 / 800 Balance 200 / 1625 -700 / 925 Physical Exam Const: COMMON NORMALS: patient oriented x3 HENMT: COMMON NORMALS: normocephalic and atraumatic HEAD & SCALP: normocephalic and atraumatic Resp: COMMON NORMALS: clear to auscultation bilaterally EFFORT & INSPECTI ON: Yes symmetric chest movement AUSCULTATION: clear to auscultation bilaterally Cardio: COMMON NORMALS: regular rate, regular rhythm, S1 normal heart sound present, S2 normal heart sound present, No gallops present (Cardio), No murmurs present (Cardio), No rub (Cardio) and Peripheral pulses 2+ throughout RATE: regular rate RHYTHM: regular rhythm HEART SOUNDS: S1 normal heart sound present and S2 normal heart sound present PERIPHERAL PULSES: Peripheral pulses 2+ throughout GI: COMMON NORMALS: Normal to inspection, nondistended, normoactive bowel sounds present, Soft to palpation, non-tender, No hepatosplenomegaly present and no masses AUSCULTATION: Yes normoactive bowel sounds PALPATION: Yes Soft to palpation and Yes No hepatosplenomegaly present RECTAL EXAM: deferred Extremity: COMMON NORMALS: no clubbing, cyanosis or edema and no pedal edema Neuro: COMMON NORMALS: patient oriented x3 Urinary Catheter Management^: Holley: Cath Placed During This Visit: yes Reason for Continuing Indwelling Catheter: Assist healing open wound Urinary Catheter Date of Insertion: 09/27/20 Urinary Catheter Time of Insertion: 09:10 Data : 09/29/20 04:34 09/29/20 04:34 Micro: Microbiology 09/27/20 08:52 Urine Culture - Preliminary Urine Catheterized Gram Negative Rods 09/27/20 08:57 Blood Culture - Preliminary Blood NEGATIVE TO DATE 09/27/20 08:42 Blood Culture - Preliminary Blood NEGATIVE TO DATE A&P Assessment and plan (1) Sepsis: Sepsis 2/2 to UTI : Hypothermia,boderline tachycardia, hypotension,leukocytosis, elevated lactic acid. Blood culture :NTD Urine Culture :GNR Lactic acid Trend :Trending down. Procal :0.46 Xray chest: No focal peripheral lung consolidation, air bronchogram formation, or silhouette sign. Bilateral pulmonary scarring. Pleural spaces: No pleural effusion or pneumothorax. Imipenam 250 mg q6 h I. daily. Status: Acute (2) Anemia: Normocytic Anemia :Likely 2/2 to anemia of chronic blood loss EGD has been attempted in the past but scope could not be passed. 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 Current plan is to Transfuse 1 u PRBC and monitor CBC. Lovenox prophylatic as well as aspirin has been stopped. Patient will need to have EGD done with with pediatric scope at a different facility. Protonix 40 mg I.V Daily Status: Acute (3) Elevated troponin: Likely Type II M.I From sepsis as well as anemia Patient deny any chest pain, sob, palpitation, nausea, vomiting. EKG :Is not suggestive of any acute myocardial insult. 2D Echo : LV size and systolic function :Nl, No RWMA, EF : 68 % Aspirin 81 mg po daily Tele Status: Acute (4) Urinary tract infection: Status: Acute Qualifiers: Hematuria presence: without hematuria Urinary tract infection type: site unspecified Qualified Code(s): N39.0 - Urinary tract infection, site not specified (5) Diabetes: Status: Acute Qualifiers: Diabetes mellitus complication status: without complication Diabetes mellitus long-term insulin use: with watermelon inspector use Diabetes mellitus type: type 2 Qualified Code(s): E11.9 - Type 2 diabetes mellitus without complications; Z79.4 - laborer marine terminal (current) use of insulin (6) Altered mental status: Ac Metabolic Encephalopathy : Resolved Status: Acute Qualifiers: Altered mental status type: somnolence Qualified Code(s): R40.0 - Somnolence (7) Lewy body dementia without behavioral disturbance: Carbidopa/Levodopa 1 tab po TID Status: Acute (8) Atrial fibrillation: Currently rate controlled. Not on Ac as she has prior h/o G.I Bleed. Status: Acute (9) Hypothyroidism: Levothyroxine 125 mcg po daily Status: Acute (10) Anemia: Status: Acute Additional A&P Information #PMR : On Prednisone 10 mg po daily #Gout : On Allopurinol 100 mg po daily Code Status :AND Dvt PPx:Lovenox Attestations Medical Necessity Statement*: Patient needs to be in hospital for the management of sepsis, severe anemia, possible G.I Bleed. Coding Level of Care Code Acute Passenger Interline Clerk for g Fwd Exam Detailed Diagnoses Sepsis A41.9 Anemia D64.9 Elevated troponin R77.8 Urinary tract infection N39.0 Hematuria presence: without hematuria Urinary tract infection type: site unspecified Diabetes E11.9; Z79.4 Diabetes mellitus complication status: without complication Diabetes mellitus long-term insulin use: with watermelon inspector use Diabetes mellitus type: type 2 Altered mental status R40.0 Altered mental status type: somnolence Lewy body dementia without behavioral disturbance G31.83; F02.80 Atrial fibrillation I48.91 Hypothyroidism E03.9 Anemia D64.9
--- NOTE | 2020-09-29 12:25 | PC.NURSE ---
Received report and took over care of patient from [place] [facility].
[2020-09-29] MEDS: lanolin oint 7 gm 1 APPLIC TOPICAL (13:12)
--- NOTE | 2020-09-29 13:23 | PC.NURSE ---
verbal order from Dr. Samson received to change H&H order for 1 hour post transfusion.
[2020-09-29 13:32] LABS: Glucose Point of Care 198 mg/dL (70-110)
--- NOTE | 2020-09-29 14:14 | PC.CHAP ---
Pastoral Care Encounter/Spiritual Assessment Type of Contact [] Declined weed sprayer visit [] Patient/Family/Request visit [] Outpatient visit [] Follow-up visit [] Physician referral [] Code/Alert [] Routine visit [] Staff referral [] Actively dying [] Patient sleeping [] Family support [] [] Out of room [] Palliative care [] [] Receiving care in room [] Pre-surgical visit [] Trauma [] Long length of stay [] ICU visit [] Other: Relational/Emotional Strength [] Patient feels connected with others/family/visitors/staff [] Distress [] Loneliness/isolation [] Abandonment Spirituality of Patient [] Person of Serena [] Attends Yazdanism of their Serena [] Believes in Prayer [] Reads Bible or Yazidism materials [] There are Spiritual issues to be addressed Freight Brake Operator Interventions Pastoral Care Encounter/Spiritual Assessment Type of Contact [] Declined weed sprayer visit [] Patient/Family/Request visit [] Outpatient visit [] Follow-up visit [] Physician referral [] Code/Alert [] Routine visit [] Staff referral [] Actively dying [] Patient sleeping [] Family support [] [] Out of room [] Palliative care [] [] Receiving care in room [] Pre-surgical visit [] Trauma [] Long length of stay [] ICU visit [] Other: Relational/Emotional Strength [] Patient feels connected with others/family/visitors/staff [] Distress [] Loneliness/isolation [] Abandonment Spirituality of Patient [] Person of Serena [] Attends Yazdanism of their Serena [] Believes in Prayer [] Reads Bible or Yazidism materials [] There are Spiritual issues to be addressed Freight Brake Operator Interventions [] Prayer [] Active listening [] Non-anxious presence [] Spiritual/emotional support [] Crisis/trauma care [] Spiritual counseling [] Bereavement support [] Provided bereavement packet [] Provided Bible/devotional materials [] Provided toy/stuffed animal, coloring book to patient or family member [] Provided Communion [] Anointing/[place] [] Salvation [] Completed spiritual assessment [] Other: Impact on Illness or Injury [] Angry [] Fearful [] Anxious [] Often cries [] Exhaustion [] Unable to work [] Unable to attend religious [] Unable to walk/stand [] Unable to read [] Unable to drive [] Unable to eat/drink [] Unable to sleep [] Unable to be with family [] Patient intubated [] Other: Summary Time spent with patient Pastoral Care Encounter/Spiritual Assessment Type of Contact [] Declined weed sprayer visit [] Patient/Family/Request visit [] Outpatient visit [] Follow-up visit [] Physician referral [] Code/Alert [] Routine visit [] Staff referral [] Actively dying [] Patient sleeping [] Family support [] [] Out of room [] Palliative care [] [] Receiving care in room [] Pre-surgical visit [] Trauma [] Long length of stay [] ICU visit [] Other: Relational/Emotional Strength [] Patient feels connected with others/family/visitors/staff [] Distress [] Loneliness/isolation [] Abandonment Spirituality of Patient [] Person of Serena [] Attends Yazdanism of their Serena [] Believes in Prayer [] Reads Bible or Yazidism materials [] There are Spiritual issues to be addressed Freight Brake Operator Interventions [] Prayer [] Active listening [] Non-anxious presence [] Spiritual/emotional support [] Crisis/trauma care [] Spiritual counseling [] Bereavement support [] Provided bereavement packet [] Provided Bible/devotional materials [] Provided toy/stuffed animal, coloring book to patient or family member [] Provided Communion [] Anointing/[place] [] Salvation [] Completed spiritual assessment [] Other: Impact on Illness or Injury [] Angry [] Fearful [] Anxious [] Often cries [] Exhaustion [] Unable to work [] Unable to attend religious [] Unable to walk/stand [] Unable to read [] Unable to drive [] Unable to eat/drink [] Unable to sleep [] Unable to be with family [] Patient intubated [] Other: Summary Time spent with patient Prayer [] Active listening [] Non-anxious presence [] Spiritual/emotional support [] Crisis/trauma care [] Spiritual counseling [] Bereavement support [] Provided bereavement packet [] Provided Bible/devotional materials [] Provided toy/stuffed animal, coloring book to patient or family member [] Provided Communion [] Anointing/[place] [] Salvation [] Completed spiritual assessment [] Other: Impact on Illness or Injury [] Angry [] Fearful [] Anxious [] Often cries [] Exhaustion [] Unable to work [] Unable to attend religious [] Unable to walk/stand [] Unable to read [] Unable to drive [] Unable to eat/drink [] Unable to sleep [] Unable to be with family [] Patient intubated [] Other: Summary Time spent with patient
--- NOTE | 2020-09-29 14:39 | PC.CHAP ---
Pastoral Care Encounter/Spiritual Assessment Type of Contact [] Declined residential carpet installer visit [] Patient/Family/Request visit [] Outpatient visit [] Follow-up visit [] Physician referral [] Code/Alert [x] Routine visit [] Staff referral [] Actively dying [] Patient sleeping [] Family support [] [] Out of room [] Palliative care [] [] Receiving care in room [] Pre-surgical visit [] Trauma [] Long length of stay [] ICU visit [] Other: Relational/Emotional Strength [] Patient feels connected with others/family/visitors/staff [] Distress [] Loneliness/isolation [] Abandonment Spirituality of Patient [x] Person of Serena [] Attends Jainism of their Serena [] Believes in Prayer [] Reads Bible or Voodoo materials [] There are Spiritual issues to be addressed Acute Care Clinical Nurse Specialist Interventions [x] Prayer [x] Active listening [x] Non-anxious presence [x] Spiritual/emotional support [] Crisis/trauma care [] Spiritual counseling [] Bereavement support [] Provided bereavement packet [] Provided Bible/devotional materials [] Provided toy/stuffed animal, coloring book to patient or family member [] Provided Communion [] Anointing/[place] [] Salvation [x] Completed spiritual assessment [] Other: Impact on Illness or Injury [] Angry [] Fearful [] Anxious [] Often cries [] Exhaustion [] Unable to work [] Unable to attend alevism [] Unable to walk/stand [] Unable to read [] Unable to drive [] Unable to eat/drink [] Unable to sleep [] Unable to be with family [] Patient intubated [] Other: Summary very happy patient Time spent with patient 20 min
--- NOTE | 2020-09-29 16:00 | PC.NURSE ---
reported to lab that blood has finished, cbc will be drawn at 1700.
[2020-09-29 17:14] LABS: Glucose Point of Care 228 mg/dL (70-110)
[2020-09-29 17:30] LABS: Basophils % 0.3 %; Eosinophils % 0.1 %; Hematocrit 28.5 % (37.0-47.0); Hemoglobin 7.8 g/dL (11.5-15.3); Lymphocytes # 0.6 10^3/uL (0.8-4.8); Lymphocytes % 6.5 %; Mean Corpuscular HGB Conc 27.4 g/dL (30.0-36.0); Mean Corpuscular Hemoglobin 22.3 pg (28.0-34.0); Mean Corpuscular Volume 81.4 fL (81-99); Mean Platelet Volume 9.7 fL (7.4-10.4); Monocytes # 0.3 10^3/uL (0.2-0.9); Monocytes % 2.8 %; Neutrophils # 7.79 10^3/uL (1.8-7.7); Neutrophils % 88.6 %; Nucleated Red Blood Cells # 0.1 /100WBC; Nucleated Red Blood Cells % 0.6 %; Platelet Count 280 10^3/cmm (130-400); Red Cell Distribution Width 21.2 % (12.1-15.1); White Blood Count 8.8 10^3/uL (4.0-10.0)
[2020-09-29] MEDS: FUROsemide 10 mg/mL SDV 2mL 20 MG IVP (20:18)
[2020-09-29 20:45] LABS: Glucose Point of Care 241 mg/dL (70-110)
[2020-09-30] VITALS (14 sets, daily range): BP systolic 136–152; BP diastolic 69–82; PULSE 68–109; RESP 17–18; TEMP 36.6–37; O2SAT 94–98
[2020-09-30] MEDS: sodium chloride 0.9% (100 ml) 100 ML 240 ML (03:00)
--- NOTE | 2020-09-30 03:46 | PC.NURSE ---
Patient had a small bout of confusion, patient was convinced that her was standing in by her bed, she was attempting to get up. This nurse easily redirected her.
[2020-09-30 05:13] LABS: Basophils % 0.3 %; Eosinophils # 0.1 10^3/uL (0.0-0.8); Hematocrit 33.4 % (37.0-47.0); Hemoglobin 9.6 g/dL (11.5-15.3); Lymphocytes # 1.1 10^3/uL (0.8-4.8); Lymphocytes % 14.1 %; Mean Corpuscular HGB Conc 28.7 g/dL (30.0-36.0); Mean Corpuscular Hemoglobin 23.4 pg (28.0-34.0); Mean Corpuscular Volume 81.5 fL (81-99); Mean Platelet Volume 9.9 fL (7.4-10.4); Monocytes # 0.4 10^3/uL (0.2-0.9); Monocytes % 4.8 %; Neutrophils # 6.17 10^3/uL (1.8-7.7); Neutrophils % 78.3 %; Nucleated Red Blood Cells # 0.1 /100WBC; Nucleated Red Blood Cells % 0.9 %; Platelet Count 301 10^3/cmm (130-400); Red Cell Distribution Width 20.7 % (12.1-15.1); White Blood Count 7.9 10^3/uL (4.0-10.0)
[2020-09-30 05:33] LABS: Alanine Aminotransferase 6 U/L (0-33); Albumin Level 3.2 g/dL (3.5-5.2); Alkaline Phosphatase 91 IU/L (35-105); Anion Gap 14.2 (5-19); Aspartate Amino Transferase 20 U/L (0-32); Blood Urea Nitrogen 15 mg/dL (8-23); Calcium 8.1 mg/dL (8.5-10.5); Carbon Dioxide 25 mmol/L (22-29); Chloride 101 mmol/L (98-107); Globulin 2.7 g/dL (1.3-4.6); Glucose 101 mg/dL (65-115); Osmolality Calculated 285 mOsm/kg (285-295); Potassium 3.2 mmol/L (3.5-5.1); Sodium 137 mmol/L (136-145); Total Bilirubin 0.7 mg/dL (0.15-1.2); Total Protein 5.9 g/dL (6.6-8.7)
[2020-09-30] MEDS: levothyroxine 125 mcg Tablet PO (06:00)
[2020-09-30 06:30] LABS: Slide Review Slide Review Perform
[2020-09-30 06:40] LABS: Glucose Point of Care 126 mg/dL (70-110)
[2020-09-30] MEDS: allopurinol 100 mg Tablet PO (07:45)
[2020-09-30] MEDS: predniSONE 10 mg Tablet PO (07:46)
[2020-09-30] MEDS: pregabalin 25 mg Capsule PO ×2 (07:46→20:37)
[2020-09-30] MEDS: pantoprazole 40 mg SDV IVP (09:18)
[2020-09-30] MEDS: carbidopa-levodopa 25-100mg Tablet 1 EACH PO ×3 (09:18→20:37)
--- NOTE | 2020-09-30 10:25 | PC.SOCIAL ---
IMM Update Pg.2 of IMM updated and reviewed with patient, who verbalized understanding. Copy provided.
[2020-09-30 10:54] LABS: Glucose Point of Care 288 mg/dL (70-110)
--- NOTE | 2020-09-30 11:19 | P.PN_ITS ---
Subjective Subjective: Interval history: was seen and examined this morning,no acute event overnight,she is doing fine. S/P 2 U PRBC Transfusion. H/H is stable.Other vitals and labs have been reviewed. Medications: Reviewed: Yes Vitals/I&O/Wt Last Vital Signs Temp 98.3 F 09/30/20 11:12 Pulse 105 H 09/30/20 11:12 Resp 18 09/30/20 11:12 BP 148/69 09/30/20 11:12 Pulse Ox 94 09/30/20 11:12 09/29/20 09/30/20 09/30/20 22:59 06:59 14:59 Intake Total 810 / 910 550.000 / 1460.000 Output Total 1999 / 1999 900 / 2900 Balance -1190 / -1090 -350.000 / -1440.000 Physical Exam Const: COMMON NORMALS: patient oriented x3 HENMT: COMMON NORMALS: normocephalic and atraumatic HEAD & SCALP: normocephalic and atraumatic Resp: COMMON NORMALS: clear to auscultation bilaterally EFFORT & INSPECTION: Yes symmetric chest movement AUSCULTATION: clear to auscultation bilaterally Cardio: COMMON NORMALS: regular rate, regular rhythm, S1 normal heart sound present, S2 normal heart sound present, No gallops present (Cardio), No murmurs present (Cardio), No rub (Cardio) and Peripheral pulses 2+ throughout RATE: regular rate RHYTHM: regular rhythm HEART SOUNDS: S1 normal heart sound present and S2 normal heart sound present PERIPHERAL PULSES: Peripheral pulses 2+ throughout GI: COMMON NORMALS: Normal to inspection, nondistended, normoactive bowel sounds present, Soft to palpation, non-tender, No hepatosplenomegaly present and no masses AUSCULTATION: Yes normoactive bowel sounds PALPATION: Yes Soft to palpation and Yes No hepatosplenomegaly present RECTAL EXAM: deferred Extremity: COMMON NORMALS: no clubbing, cyanosis or edema and no pedal edema Neuro: COMMON NORMALS: patient oriented x3 Urinary Catheter Management^: Holley: Cath Placed During This Visit: yes Reason for Continuing Indwelling Catheter: Other Urinary Catheter Date of Insertion: 09/27/20 Urinary Catheter Time of Insertion: 09:10 Data : 09/30/20 04:05 04/06/21 04:05 Micro: Microbiology 09/27/20 08:52 Urine Culture - Final Urine Catheterized Pseudo alcaligenes/psalcalig A&P Assessment and plan (1) Sepsis: Sepsis 2/2 to UTI : Hypothermia,boderline tachycardia, hypotension,leukocytosis, elevated lactic acid. Blood culture :NTD Urine Culture :GNR:Pseudo alcaligenes/ Lactic acid Trend :Trending down. Procal :0.46 Xray chest: No focal peripheral lung consolidation, air bronchogram formation, or silhouette sign. Bilateral pulmonary scarring. Pleural spaces: No pleural effusion or pneumothorax. Initially on Imipenam 250 mg q6 h I. daily. (09/27-09/30 ) Cef 1 gm q24h daily ( 10/01 ) Status: Acute (2) Anemia: Normocytic Anemia :Likely 2/2 to anemia of chronic blood loss EGD has been attempted in the past but scope could not be passed. 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 s/p 2 u PRBC and monitor CBC. Lovenox prophylatic as well as aspirin has been stopped. Patient will need to have EGD done with with [facility].Her drop in H/H was discussed in detail with his .Currently he wants to monitor and go for conservative management. Protonix 40 mg I.V Daily Status: Acute (3) Elevated troponin: Likely Type II M.I From sepsis as well as anemia. Patient deny any chest pain, sob, palpitation, nausea, vomiting. EKG :Is not suggestive of any acute myocardial insult. 2D Echo : LV size and systolic function :Nl, No RWMA, EF : 68 %. Aspirin 81 mg po daily was stopped as her h/h dropped.Will continue to hold aspirin on discharge. 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 Not on Ac as she has prior h/o G.I Bleed. Status: Acute (9) Hypothyroidism: Levothyroxine 125 mcg po daily Status: Acute Additional A&P Information #PMR : On Prednisone 10 mg po daily #Gout : On Allopurinol 100 mg po daily Code Status :AND Dvt PPx:Lovenox Attestations Medical Necessity Statement*: Patient needs to be in hospital fpr sepsis, severe anemia, and the need for her hemoglobin. Coding Level of Care Code Acute Environmental Program Manager for g Fwd Diagnoses Sepsis A41.9 Anemia D64.9 Elevated troponin R77.8 Urinary tract infection N39.0 Hematuria presence: without hematuria Urinary tract infection type: site unspecified Diabetes E11.9; Z79.4 Diabetes mellitus type: type 2 Diabetes mellitus keno terminal operator insulin use: with care home use Diabetes mellitus complication status: without complication Altered mental status R40.0 Altered mental status type: somnolence Lewy body dementia without behavioral disturbance G31.83; F02.80 Atrial fibrillation I48.91 Hypothyroidism E03.9
[2020-09-30] MEDS: nystatin powder 15 gm Btl 1 APPLIC TOPICAL ×2 (14:00→17:41)
[2020-09-30] MEDS: cefTRIAXone 1,000 MG in sodium chloride 0.9% (plus) 50 ML 100 MG IV (16:55)
[2020-09-30] MEDS: potassium chloride oral liq 20 mEq/15 mL UDC 40 MEQ PO (16:55)
[2020-09-30 17:05] LABS: Glucose Point of Care 343 mg/dL (70-110)
--- NOTE | 2020-09-30 18:30 | PC.NURSE ---
pt alert and oriented. pt complained of no pain. pt had good input and output. pt resting comfortably in bed.
[2020-09-30 20:18] LABS: Glucose Point of Care 291 mg/dL (70-110)
[2020-10-01] VITALS (7 sets, daily range): BP systolic 142–157; BP diastolic 77–84; PULSE 78–94; RESP 16–18; TEMP 36.6–37.1; O2SAT 96–97
[2020-10-01 05:36] LABS: Basophils % 0.2 %; Eosinophils # 0.2 10^3/uL (0.0-0.8); Eosinophils % 1.6 %; Hematocrit 33.6 % (37.0-47.0); Hemoglobin 9.6 g/dL (11.5-15.3); Lymphocytes # 1.4 10^3/uL (0.8-4.8); Lymphocytes % 15.1 %; Mean Corpuscular HGB Conc 28.6 g/dL (30.0-36.0); Mean Corpuscular Volume 80.6 fL (81-99); Monocytes # 0.5 10^3/uL (0.2-0.9); Monocytes % 4.9 %; Neutrophils # 7.09 10^3/uL (1.8-7.7); Neutrophils % 76.7 %; Nucleated Red Blood Cells # 0.1 /100WBC; Nucleated Red Blood Cells % 0.6 %; Platelet Count 290 10^3/cmm (130-400); Red Blood Count 4.17 10^6/uL (4.1-5.3); Red Cell Distribution Width 20.4 % (12.1-15.1); White Blood Count 9.3 10^3/uL (4.0-10.0)
[2020-10-01 06:04] LABS: Anion Gap 12.3 (5-19); Blood Urea Nitrogen 14 mg/dL (8-23); Calcium 8.3 mg/dL (8.5-10.5); Carbon Dioxide 24 mmol/L (22-29); Chloride 102 mmol/L (98-107); Glucose 149 mg/dL (65-115); Osmolality Calculated 283 mOsm/kg (285-295); Potassium 3.3 mmol/L (3.5-5.1); Sodium 135 mmol/L (136-145)
[2020-10-01] MEDS: levothyroxine 125 mcg Tablet PO (06:11)
[2020-10-01 06:32] LABS: Glucose Point of Care 149 mg/dL (70-110)
[2020-10-01] MEDS: predniSONE 10 mg Tablet PO (09:00)
[2020-10-01] MEDS: carbidopa-levodopa 25-100mg Tablet 1 EACH PO (09:00)
[2020-10-01] MEDS: allopurinol 100 mg Tablet PO (09:00)
[2020-10-01] MEDS: pantoprazole 40 mg SDV IVP (09:03)
[2020-10-01] MEDS: nystatin powder 15 gm Btl 1 APPLIC TOPICAL (09:03)
[2020-10-01] MEDS: pregabalin 25 mg Capsule PO (09:05)
[2020-10-01 10:46] LABS: Glucose Point of Care 247 mg/dL (70-110)
[2020-10-01] MEDS: acetaminophen 325 mg Tablet 650 MG PO (12:45)
--- NOTE | 2020-10-01 13:50 | PM.DCS ---
Discharge Providers Date of Admission: 09/27/20 10:01 Date of Discharge: October 01, 2020 Attending Provider at Admission: Jorge Samson MD Attending Provider at Discharge: Jorge Samson MD Primary Care Provider: Guillaume Calvo MD Diagnoses at Discharge Discharge Diagnosis (1) Sepsis: Status: Resolved (2) Anemia: Status: Chronic (3) Elevated troponin: Status: Acute (4) Urinary tract infection: Status: Acute Qualifiers: Hematuria presence: without hematuria Urinary tract infection type: site unspecified Qualified Code(s): N39.0 - Urinary tract infection, site not specified (5) Diabetes: Status: Acute Permanent problem details: -continue insulin regimen Qualifiers: Diabetes mellitus complication status: without complication Diabetes mellitus long term care phlebotomist insulin use: with long term care phlebotomist use Diabetes mellitus type: type 2 Qualified Code(s): E11.9 - Type 2 diabetes mellitus without complications; Z79.4 - [facility] (current) use of insulin (6) Altered mental status: Status: Acute Qualifiers: Altered mental status type: somnolence Qualified Code(s): R40.0 - Somnolence (7) Lewy body dementia without behavioral disturbance: Status: Acute (8) Atrial fibrillation: Status: Chronic (9) Hypothyroidism: Status: Chronic Reason for Visit Reason for Visit: [facility] Hospital Course Hospital Course Emily Murillo is a 85 year old female with PMH of CAD S/P Stent, A.F, DM, HTN, Hypothyroidism, DLD, PMR on chronic steroid Lewy body dementia without behavioral disturbance resident of [facility], came in with c/o decreased responsiveness, she says that she is overall not felling well, she is alert and awake, currently orineted to self ,and place. Upon arrival in the ER she was worked up for above mentioned complain. Imaging studies: C.T Head without contrast : No acute intracranial pathology. Xray chest : No infiltrates,no pleural effusion, no pulmonary congestion, no PTX. EKG : Sinus Tachycardia with 1 st degree AV Block, non specific ST-T Wave abnormality. Pertinent Labs : WBC : 17, H/H: 8/30 PLT : 415 , Na : 140, k : 5, BUN/SCR: 36/1.3 , Lactic acid : 4.5 --> 3.9---> 3.8. RBS: 259 ,HCO3: 24, Troponin T : Baseline : 163, 2h : 144, 2H D: - 18.5 6 H T : Urine analysis : Nitrite :Positive, WBC : 5-10 .ECA Medications:Rochepin 1 gm as well as 250 cc Ns with 75 cc @ hr. She was admitted for the management of Sepsis 2/2 to UTI :Blood culture :NTD Urine Culture :GNR: Pseudo alcaligenes. Xray chest: No focal peripheral lung consolidation, air bronchogram formation, or silhouette sign. Bilateral pulmonary scarring. Pleural spaces: No pleural effusion or pneumothorax.She was kept on Imipenam 250 mg q6 h I. daily.Which was later switched to ceftriaxone based on sensitivity. She responded well to the abxs and at the time of discharge she was out of sepsis. 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 Patient responded well to the above medical management and is being discharged in stable condition.She will follow as outpatient in a week, her PCP and they can decide from there regarding the need for EGD. Physical Exam Const: COMMON NORMALS: patient oriented x3 HENMT: COMMON NORMALS: normocephalic and atraumatic HEAD & SCALP: normocephalic and atraumatic Resp: COMMON NORMALS: clear to auscultation bilaterally EFFORT & INSPECTION: Yes symmetric chest movement AUSCULTATION: clear to auscultation bilaterally Cardio: COMMON NORMALS: regular rate, regular rhythm, S1 normal heart sound present, S2 normal heart sound present, No gallops present (Cardio), No murmurs present (Cardio), No rub (Cardio) and Peripheral pulses 2+ throughout RATE: regular rate RHYTHM: regular rhythm HEART SOUNDS: S1 normal heart sound present and S2 normal heart sound present PERIPHERAL PULSES: Peripheral pulses 2+ throughout GI: COMMON NORMALS: Normal to inspection, nondistended, normoactive bowel sounds present, Soft to palpation, non-tender, No hepatosplenomegaly present and no masses AUSCULTATION: Yes normoactive bowel sounds PALPATION: Yes Soft to palpation and Yes No hepatosplenomegaly present RECTAL EXAM: deferred Extremity: COMMON NORMALS: no clubbing, cyanosis or edema and no pedal edema Neuro: COMMON NORMALS: patient oriented x3 Urinary Catheter Management^: Holley: Cath Placed During This Visit: yes, but has since been removed by the nurse Reason for Continuing Indwelling Catheter: Decision to DC Catheter Urinary Catheter Date of Insertion: 09/27/20 Urinary Catheter Time of Insertion: 09:10 Date Urinary Catheter Removed: 10/01/20 Time Urinary Catheter Discontinued: 10:45 Discharge Data Data Completed and Pending: Completed Studies During Hospitalization Category Date Time Status CT head wo con* 7 0450 Urgent Cat Scan 09/27/20 07:58 Completed XR chest 1V goldy ble [id number] Stat Exams 09/27/20 07:55 Completed CV echo limited 9 3308 Routine Ultrasound 09/27/20 12:56 Completed Pending at discharge Category Date Time Status Blood Culture Sta t Lab 09/27/20 08:57 Results Immunochemical Fe raymon OCB Routine Lab 09/28/20 13:12 Uncollected Leukocyte Reduced RBC Routine Lab 09/29/20 06:39 Results Type and Screen R outine Lab 09/29/20 06:39 Results Labs from last 24 hours 10/01/20 10/01/20 10/01/20 10:17 06:16 04:47 WBC RBC Hgb Hct MCV MCH MCHC RDW Plt Count MPV Neut % (Auto) Lymph % (Auto) [place] % (Auto) Eos % (Auto) Baso % (Auto) Neut # (Auto) Lymph # (Auto) [place] # (Auto) Eos # (Auto) Baso # (Auto) Nucleated RBC % (a uto) Nucleated RBCs # Sodium 135 L Potassium 3.3 L Chloride 102 Carbon Dioxide 24 Anion Gap 12.3 BUN 14 Creatinine 0.8 GFR Calculation Not Reportable Glucose 149 H POC Glucose 247 H 149 H Calculated Osmolal ity 283 L Calcium 8.3 L 10/01/20 09/30/20 09/30/20 04:47 19:06 16:38 WBC 9.3 RBC 4.17 Hgb 9.6 L Hct 33.6 L MCV 80.6 L MCH 23.0 L MCHC 28.6 L RDW 20.4 H Plt Count 290 MPV 10.0 Neut % (Auto) 76.7 Lymph % (Auto) 15.1 [place] % (Auto) 4.9 Eos % (Auto) 1.6 Baso % (Auto) 0.2 Neut # (Auto) 7.09 Lymph # (Auto) 1.4 [place] # (Auto) 0.5 Eos # (Auto) 0.2 Baso # (Auto) 0.0 Nucleated RBC % (a uto) 0.6 Nucleated RBCs # 0.1 Sodium Potassium Chloride Carbon Dioxide Anion Gap BUN Creatinine GFR Calculation Glucose POC Glucose 291 H 343 H Calculated Osmolal ity Calcium Vitals: Last Vital Signs Temp 98.7 F 10/01/20 12:00 Pulse 78 10/01/20 12:00 Resp 16 10/01/20 12:00 BP 142/78 10/01/20 12:00 Pulse Ox 97 10/01/20 11:08 Discharge Plan Discharge Patient Disposition: Home Condition: Stable Prescriptions: Continued furosemide [Lasix] 20 mg tablet 20 mg PO DAILY@08 RF: 0 nitroglycerin [Nitrostat] 0.4 mg tablet, sublingual 0.4 mg SUBLINGUAL Q5M MDD 3 doses PRN (Reason: Chest Pain) RF: 0 acetaminophen [Tylenol] 325 mg tablet 650 mg PO BEDTIME PRN (Reason: Pain) RF: 0 prednisone 10 mg tablet 10 mg PO DAILY@08 RF: 0 Levemir FlexTouch U-100 Insuln 100 unit/mL (3 mL) insulin pen See Rx Instructions .ROUTE .COMPLEX RF: 0 ProSource 10-100 gram-kcal/30 mL Liquid See Rx Instructions .ROUTE .COMPLEX RF: 0 carbidopa-levodopa 25-100 mg tablet extended release 1 tab PO TID@08,12,16 RF: 0 pantoprazole 40 mg tablet,delayed release (DR/EC) 40 mg PO BID@06,20 RF: 0 metoprolol tartrate 25 mg tablet 25 mg PO DAILY@08 RF: 0 rivastigmine tartrate 1.5 mg Capsule 1.5 mg PO BID@08,20 RF: 0 imipramine HCl 10 mg Tablet 10 mg PO DAILY@08 RF: 0 pregabalin [Lyrica] 25 mg Capsule 25 mg PO BID@08,20 RF: 0 glimepiride 4 mg Tablet 4 mg PO BID@08,20 RF: 0 allopurinol 100 mg Tablet 100 mg PO DAILY@08 RF: 0 levothyroxine [Synthroid] 125 mcg Tablet 125 mcg PO DAILY@05 RF: 0 potassium chloride 20 mEq Tablet Extended Release 20 meq PO DAILY@08 RF: 0 Discharge Orders: Discharge Order (Routine); Ordered 10/01/20 Ordered By: Jorge Samson Referrals: Guillaume Calvo MD [Primary Care Provider] - 1 week Discharge Diet: Diabetic Discharge Activity: Resume usual activity Patient Instructions: Anemia (GEN) Discharge Attestations Time Spent in Discharge Care*: less than 30 min Specific Discharge Activities: educating patient, educating and/or supporting family/caregiver, discussing with pillowcase sewer/social workers/dc planners, documenting/other paperwork and evaluating patient/reviewing data Status at Discharge: Cognitive status at discharge: cognitively intact, Behavioral status at discharge: cooperative and dependent in ADL's, Quality Metrics Clinical Quality Measures During this hospital stay, did patient experience: None Coding Level of Care Code Acute Chg FW DC note Exam Detailed Diagnoses Sepsis A41.9 Anemia D64.9 Elevated troponin R77.8 Urinary tract infection N39.0 Hematuria presence: without hematuria Urinary tract infection type: site unspecified Diabetes E11.9; Z79.4 Diabetes mellitus complication status: without complication Diabetes mellitus chcf insulin use: with long term care phlebotomist use Diabetes mellitus type: type 2 Altered mental status R40.0 Altered mental status type: somnolence Lewy body dementia without behavioral disturbance G31.83; F02.80 Atrial fibrillation I48.91 Hypothyroidism E03.9
== END 2020-10-01 14:30 | disposition skilled nursing facility (03) | DRG 871 ==
LOC: ER 09:50 → MEDSURG 10:34
PROVIDERS: Internal Medicine; Admitting Provider Internal Medicine; Emergency Provider Emergency Medicine; PCP Internal Medicine; Visit Provider Internal Medicine
DX: A41.9 Sepsis, unspecified organism (principal); I21.A1 Myocardial infarction type 2; G93.41 Metabolic encephalopathy; N39.0 Urinary tract infection, site not specified; I48.20 Chronic atrial fibrillation, unspecified; K92.2 Gastrointestinal hemorrhage, unspecified; I25.10 Atherosclerotic heart disease of native coronary artery without angina pectoris; Z95.5 Presence of coronary angioplasty implant and graft; E11.9 Type 2 diabetes mellitus without complications; I10 Essential (primary) hypertension; E03.9 Hypothyroidism, unspecified; M35.3 Polymyalgia rheumatica; Z79.52 Long term (current) use of systemic steroids; G31.83 Neurocognitive disorder with Lewy bodies; F02.80 Dementia in other diseases classified elsewhere, unspecified severity, without behavioral disturbance, psychotic disturbance, mood disturbance, and anxiety; F32.9 Major depressive disorder, single episode, unspecified; M79.7 Fibromyalgia; K21.9 Gastro-esophageal reflux disease without esophagitis; E78.00 Pure hypercholesterolemia, unspecified; Z96.653 Presence of artificial knee joint, bilateral; I95.9 Hypotension, unspecified; Z79.84 Long term (current) use of oral hypoglycemic drugs; J39.2 Other diseases of pharynx; D50.0 Iron deficiency anemia secondary to blood loss (chronic); R68.0 Hypothermia, not associated with low environmental temperature
CPT/HCPCS: 36415; 36416; 36430; 51702; 70450; 71045; 80048; 80053; 81001; 82962; 83605; 83735; 83880; 84145; 84443; 84484; 85025; 86850; 86900; 86920; 87040; 87086; 87186; 93005; 93308; 96365; 96367; 96372; 96375; 99291; C9113; J0696; J0743; J1650; J1815; J1940; J3490; J7030; J7050; J7512; P9016; P9040